=== PATIENT | female | born 1965 | race Caucasian/White ===

== ENCOUNTER 2024-02-17 11:39 | Inpatient (IN) ==
--- NOTE | 2024-02-17 12:00 | Emergency Department Note ---
Impression & Plan Pneumonia, Metastatic breast cancer, Sepsis, Change in mental status ED Provider Note Provider: Shane Ferrell MD DATE OF SERVICE: 02/17/2024 CHIEF COMPLAINT: Altered, febrile, not taking meds HISTORY OF PRESENT ILLNESS: Patient is a 58-year-old female history of stage IV metastatic breast cancer metastasis reported to the brain as well presenting here from home via ambulance. called as she is had a fever 103 yesterday and not her self and refusing to take medicines. Started to get sick more last weekend he took her to [facility] on Friday. Reports she was admitted with pneumonia and sent home on Friday. Since discharge Friday morning has not been taking her meds and really not eating or drinking very much at all. Again fever yesterday. No falls. Not really able to ambulate. Per EMS patient was being on their equipment received IM Versed prior to arrival for her and the staff/EMS safety. Upon arrival she is not able to discuss or talk with me. Eyes are open and staring into the distance. Occasionally resisting staff to some degree. Noted to be hypoxic on room air into the mid 70s and tachycardic into the 120s. Not normally on oxygen PAST MEDICAL HISTORY: As noted above MEDICATIONS: Reviewed medication list and appears to have been discharged on Augmentin. SOCIAL HISTORY: , smoker PHYSICAL EXAM: GENERAL: On stretcher resisting staff staring off into the distance, occasionally moans to questioning Head: normocephalic and atraumatic EYES: No injection, discharge or icterus. PERRL, EOMI. NECK: Trachea midline. Good range of motion although resist me some. ENT: Mucous membranes pink and moist. Pharynx without erythema or exudate. LUNGS: Airway patent. No retractions. Breath sounds clear with good air entry bilaterally. HEART: Regular rate and rhythm. No chest wall tenderness left upper chest port appreciable subcutaneously without erythema. ABDOMEN: Soft and non-tender, without guarding or rebound. SKIN: Acyanotic, warm, dry, without rashes EXTREMITIES: Without swelling, tenderness or deformity NEUROLOGICAL: Withdraws in all 4 extremities and resist with all 4 extremities. Nonverbal for me CONTINUOUS CARDIAC MONITORING: was ordered and showed a heart rate of 90s-120s bpm in normal sinus rhythm to sinus tachycardia Patient's laboratory studies and imaging reviewed. Differential includes Infection, dehydration, metabolic abnormality, hypo/hyperglycemia, electrolyte disturbance, anemia, hypoxia, cardiac sources, intracerebral event, toxicologic, neurologic, as well as other pathologies. IMPRESSION/MEDICAL DECISION MAKING: Patient nonverbal to me and not following commands. Occasionally resisting little bit intervention. at bedside reports while she is DNR/DNI she is not on hospice. Limited intake and febrile. Extensive stage IV breast cancer evidently C[employer]ACHINE metastases reported. Recent discharge from [facility] on antibiotics for presumed pneumonia. Hypoxic here and tachycardic. IV fluids ordered. Blood cultures lactate labs sent. Ordered empiric Zosyn for antibiotic coverage. Will obtain a CT of the head and CT of the chest to exclude intracranial abnormality and further elucidate pulmonary pathology. Obvious concern for an infectious component. Dehydration exist as a possibility as well. Blood here with mild anemia but not severe requiring transfusion. Leukopenia 3.1 noted the procalcitonin elevated at 14. Lactate elevated 3.3. 2 L of IV fluid ordered for more than 30 mL/kg based on her actual body weight. No signs of acute hepatitis or pancreatitis. Hypokalemia potassium 2.9 is noted. Schultz catheter placed for urine sample and respiratory viral panel completed. VBG without severe acidosis or hypercarbia. Somewhat resisting and again did receive some benzodiazepines to allow us to complete IV, blood work, and imaging. CT of the head per acute acute intracranial infarct or hemorrhage with some osteoblastic metastasis to the skull base and mastoid effusions notable. IV Tylenol ordered for fever. Fever to be improved with this. Given some IV Protonix and IV potassium and CT of the chest is notable for some esophageal debris as well as lower lobe consolidation. Family does state that they would not want CPR they do feel that intubation or mechanical ventilation would be acceptable if needed. Discussed with the hospitalist team. Will try hold off at this time unless further decline. Hospice team will further discussion with patient or at this time given her decreased mental status, family regarding CODE STATUS. DIAGNOSIS: Pneumonia, sepsis, acute respiratory failure, hyperkalemia DISPOSITION: Hospitalist will evaluate Family agreeable with this plan. Critical Care I have personally spent 37 minutes of critical care time in the direct management of this patient. This includes bedside care, interpretation of diagnostic studies, and testing, discussion with consultants, patient, and family members, and other required patient management activities. These 37 minutes is in excess of all separately billable procedures. 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 History of colonoscopy Hx of left mastectomy (05/25/20) with [facility] Lymph node identification History of reconstruction of left breast (05/25/20) History of breast biopsy (11/02/19) left breast Family History Grandfather (Maternal) , great grandmother; diagnosed @ 80 yr old Breast cancer Father Family history of diabetes mellitus Mother Family history of diabetes mellitus Brother Family history of diabetes mellitus Social History Smoking Status: Current every day smoker Tobacco Type: Cigarettes Age Started Using Tobacco: 14; Age Quit Using Tobacco: 54; packs per day: 1; Cigarettes Per Day: 20; Second Hand Exposure: Yes ( smokes); Do You Dip or Chew Tobacco: No; Hx Alcohol Use: No Hx Substance Use: No Preferred Language: Czech Communication Ability: Effective Visual Impairment: No Limitations Hearing Ability: Normal Nitriles Lab Technician Required: No Beliefs That Will Affect Care: None marital status: Current Living Situation: Spouse current occupational status: employed current occupation: [employer] unemployment from COVID to Breast Cancer How many Children do You have: 2 Feels Safe at Home: Yes Childhood Exposure to Second-Hand Smoke: Yes caffeine: Yes (tea 2 cups/day) during the past year weight has: remained stable Dental Care, Regularly: No Physical Activity Frequency: Does not Exercise Physical Activity Frequency Comment: her work required a lot of activity but is off now Seatbelt Use: always Sunscreen Use: No Assistive Devices: Contacts, Denture - Upper, Denture - Lower and Glasses Allergies Allergies Allergy/AdvReac Type Severity Reaction Status Date / Time No Known Allergies Allergy Verified 12/12/23 13:45 Home Meds Home Medications Medication Instructions Recorded Confirmed multivitamin 1 tab PO QAM 06/21/20 02/17/24 anastrozole 1 mg tablet (Arimidex) 1 mg PO QPM 12/28/20 02/17/24 gabapentin 100 mg capsule 100 mg PO TID 12/28/20 02/17/24 cholecalciferol (vitamin D3) 25 25 mcg PO QAM 11/26/22 02/17/24 mcg (1,000 unit) tablet (Vitamin D3) magnesium 250 mg tablet 500 mg PO QAM 11/26/22 02/17/24 vitamin E 400 unit tablet 45 mg PO QAM 11/26/22 02/17/24 vitamin B complex 1 tab PO DAILY 12/09/22 02/17/24 aspirin 325 mg tablet 325 mg PO DAILY 06/27/23 02/17/24 pantoprazole 40 mg tablet,delayed 40 mg PO DAILY 06/27/23 02/17/24 release oxycodone 5 mg tablet 5 mg PO UD PRN Pain 10/09/23 02/17/24 albuterol sulfate 90 mcg/actuation 1 puff inhalation DIRECTED PRN 02/17/24 02/17/24 aerosol inhaler Other amoxicillin 875 mg-potassium 1 tab PO BID 02/17/24 02/17/24 clavulanate 125 mg tablet clotrimazole 10 mg jane 10 mg PO DIRECTED PRN Other 02/17/24 02/17/24 dexamethasone 4 mg tablet 4 mg PO QAM 02/17/24 02/17/24 lidocaine-prilocaine 2.5 %-2.5 % 1 applic topical UD PRN Other 02/17/24 02/17/24 topical cream ondansetron HCl 8 mg tablet 8 mg PO DIRECTED PRN n/v 02/17/24 02/17/24 oxycodone 20 mg/mL oral concentrate 20 mg PO DIRECTED PRN Pain 02/17/24 02/17/24 Results & Data (ED) Vital Signs Vital Signs - 24 hr 02/17/24 11:51 02/17/24 12:00 02/17/24 12:00 Temperature Temperature Source Pulse Rate 126 H 121 H Pulse Rate [Apical] Pulse Rate from SpO2 Sensor 121 H Respiratory Rate 31 H Respiratory Effort / Characteristics Respiratory Depth Respiratory Pattern Blood Pressure 118/91 Blood Pressure [Left Arm] Blood Pressure Mean 100 Blood Pressure Mean [Left Arm] Pulse Oximetry 77 L 74 L Oxygen Delivery Method Non-rebreather Room Air Oxygen Flow Rate 0 Sepsis Recent Fever Within 48 Hours Sepsis New/Unexplained Change in Mental Status Sepsis Action Taken by Nursing Oxygen Flow Rate - Titration 15 Pulse Oximetry Post Tiitration 96 02/17/24 12:01 02/17/24 12:15 02/17/24 12:30 Temperature 39.3 C H Temperature Source Rectal Pulse Rate 130 H 115 H 128 H Pulse Rate [Apical] Pulse Rate from SpO2 Sensor 115 H Respiratory Rate 26 H 23 23 Respiratory Effort / Characteristics Spontaneous Respiratory Depth Respiratory Pattern Blood Pressure 105/78 94/70 L 110/84 Blood Pressure [Left Arm] Blood Pressure Mean 87 78 94 Blood Pressure Mean [Left Arm] Pulse Oximetry 77 L 96 94 Oxygen Delivery Method Room Air Non-rebreather Oxygen Flow Rate 15 15 Sepsis Recent Fever Within 48 Hours Yes Sepsis New/Unexplained Change in Mental Status Yes Sepsis Action Taken by Nursing Physician Notified Oxygen Flow Rate - Titration Pulse Oximetry Post Tiitration 02/17/24 12:45 02/17/24 13:08 02/17/24 13:15 Temperature Temperature Source Pulse Rate 108 H Pulse Rate [Apical] Pulse Rate from SpO2 Sensor Respiratory Rate 25 H Respiratory Effort / Characteristics Respiratory Depth Respiratory Pattern Blood Pressure 101/70 96/52 L 89/58 L Blood Pressure [Left Arm] Blood Pressure Mean 81 66 63 Blood Pressure Mean [Left Arm] Pulse Oximetry 92 Oxygen Delivery Method Non-rebreather Oxygen Flow Rate 15 15 Sepsis Recent Fever Within 48 Hours Sepsis New/Unexplained Change in Mental Status Sepsis Action Taken by Nursing Oxygen Flow Rate - Titration Pulse Oximetry Post Tiitration 02/17/24 13:23 02/17/24 13:27 02/17/24 13:30 Temperature Temperature Source Pulse Rate 105 H Pulse Rate [Apical] Pulse Rate from SpO2 Sensor 104 H Respiratory Rate 24 Respiratory Effort / Characteristics Non-Labored Spontaneous Respiratory Depth Normal Respiratory Pattern Regular Blood Pressure 91/62 L Blood Pressure [Left Arm] Blood Pressure Mean 67 Blood Pressure Mean [Left Arm] Pulse Oximetry 92 Oxygen Delivery Method Non-rebreather Non-rebreather Oxygen Flow Rate 15 15 Sepsis Recent Fever Within 48 Hours Sepsis New/Unexplained Change in Mental Status Sepsis Action Taken by Nursing Oxygen Flow Rate - Titration Pulse Oximetry Post Tiitration 02/17/24 13:42 02/17/24 13:48 02/17/24 13:50 Temperature 38.7 C H 38.6 C H Temperature Source Schultz Cath ( Temp Sensing) Pulse Rate 97 H 96 H Pulse Rate [Apical] 96 H Pulse Rate from SpO2 Sensor 97 H 96 H Respiratory Rate 18 21 18 Respiratory Effort / Characteristics Respiratory Depth Respiratory Pattern Blood Pressure Blood Pressure [Left Arm] 91/63 L Blood Pressure Mean Blood Pressure Mean [Left Arm] 72 Pulse Oximetry 92 93 92 Oxygen Delivery Method Non-rebreather Non-rebreather Non-rebreather Oxygen Flow Rate 15 15 Sepsis Recent Fever Within 48 Hours Sepsis New/Unexplained Change in Mental Status Sepsis Action Taken by Nursing Oxygen Flow Rate - Titration Pulse Oximetry Post Tiitration 02/17/24 14:00 02/17/24 14:00 02/17/24 14:03 Temperature 38.2 C H Temperature Source Pulse Rate 94 H Pulse Rate [Apical] Pulse Rate from SpO2 Sensor 94 H Respiratory Rate 18 Respiratory Effort / Characteristics Respiratory Depth Respiratory Pattern Blood Pressure 89/63 L 89/63 L Blood Pressure [Left Arm] Blood Pressure Mean 72 72 Blood Pressure Mean [Left Arm] Pulse Oximetry 92 Oxygen Delivery Method Non-rebreather Oxygen Flow Rate 15 Sepsis Recent Fever Within 48 Hours Sepsis New/Unexplained Change in Mental Status Sepsis Action Taken by Nursing Oxygen Flow Rate - Titration Pulse Oximetry Post Tiitration 02/17/24 14:12 Temperature 38.0 C H Temperature Source Pulse Rate 91 H Pulse Rate [Apical] Pulse Rate from SpO2 Sensor 91 H Respiratory Rate 18 Respiratory Effort / Characteristics Respiratory Depth Respiratory Pattern Blood Pressure Blood Pressure [Left Arm] Blood Pressure Mean Blood Pressure Mean [Left Arm] Pulse Oximetry 92 Oxygen Delivery Method Oxygen Flow Rate Sepsis Recent Fever Within 48 Hours Sepsis New/Unexplained Change in Mental Status Sepsis Action Taken by Nursing Oxygen Flow Rate - Titration Pulse Oximetry Post Tiitration Laboratory Data 02/17/24 12:02 02/17/24 12:02 Lab Results 02/17/24 02/17/24 02/17/24 Range/Units 12:02 12:11 12:13 WBC 3.16 L (4.8-10.8) K/ul RBC 2.96 L (4.20-5.40) M/uL Hgb 9.7 L (12.0-16.0) g/dl POC Hgb 9.5 L (12.0-16.0) g/dl Hct 29.2 L (37.0-47.0) % POC Hct 28 L (37-47) % MCV 98.6 (80.0-100.0) fL MCH 32.8 (25.0-34.0) pg MCHC 33.2 (32.0-36.0) g/dL RDW Std Deviation 82.4 H (36.4-46.3) fL RDW Coeff of Carlos 23.5 H (11.5-14.5) % Plt Count 32 L (130-400) K/uL MPV 9.7 (9.4-12.4) fL Immature Gran % (Auto) 7.9 % Neut % (Auto) 80.7 % Lymph % (Auto) 5.1 % Ford % (Auto) 6.0 % Eos % (Auto) 0.0 % Baso % (Auto) 0.3 % Neut # (Auto) 2.55 (1.40-6.50) K/uL Lymph # (Auto) 0.16 L (1.20-3.40) K/uL Ford # (Auto) 0.19 (0.11-0.59) K/uL Eos # (Auto) 0.00 (0.00-0.50) K/uL Baso # (Auto) 0.01 (0.00-0.20) K/uL Immature Gran # (Auto) 0.25 H (0.01-0.20) K/uL Absolute Nucleated RBC 0.03 (0.00-0.12) K/uL Nucleated RBC % (auto) 0.9 % Toxic Granulation Occasional Toxic Vacuolation Occasional Dohle Bodies 1+ Polychromasia 1+ Anisocytosis Present PT 10.9 (9.0-12.0) Seconds INR 1.0 (0.9-1.1) VBG pH (7.36-7.41) VBG pCO2 (38-50) mmHg VBG pO2 mmHg VBG HCO3 mmol/L VBG O2 Saturation % VBG Base Excess mEq/L POC Sodium 138 (135-144) mmol/L Sodium 137 (136-145) mmol/L POC Potassium 2.8 L (3.3-5.0) mmol/L Potassium 2.9 L (3.5-5.1) mmol/L POC Chloride 104 (101-112) mmol/L Chloride 102 (98-107) mmol/L Carbon Dioxide 23 (21-32) mmol/L POC Total CO2 20 L (24-31) mmol/L Anion Gap 12 H (3-11) POC Anion Gap 18.0 (16-25) mmol/L POC BUN 22 H (7-18) mg/dl BUN 27 H (6-23) mg/dl Creatinine 0.94 (0.6-1.2) mg/dl POC Creatinine 0.8 (0.6-1.3) mg/dl Est Cr Clr Drug Dosing 59.2 ml/min Est GFR ( Amer) 76.4 ml/min Est GFR (Non-Af Amer) 65.9 ml/min BUN/Creatinine Ratio 28.7 H (10-20) Glucose 139 H (70-99(Fasting)) mg/dl POC Glucose 156 H (70-99) mg/dl POC Glucose (other) 143 H (70-99) mg/dl Lactate 3.3 H* (0.4-2.0) mmol/L Calcium 8.1 L (8.6-10.3) mg/dl POC Ioniz Calcium Bruce 0.96 L (1.12-1.32) mmol/l Total Bilirubin 2.2 H (0.2-1.0) mg/dl AST 29 (13-39) U/L ALT 52 (7-52) U/L Alkaline Phosphatase 120 H (34-104) U/L Troponin I High Sens 22.6 H (0-14) pg/ml Total Protein 7.4 (6.0-8.3) gm/dl Albumin 3.7 (3.4-5.0) gm/dl Globulin 3.7 (2.5-4.0) gm/dl Albumin/Globulin Ratio 1.0 (0.9-2) Lipase 3 L (11-82) U/L Procalcitonin 14.20 H (0-0.5) ng/ml Urine Color Urine Appearance (Clear) Urine pH (4.5-7.5) Ur Specific [place] (1.000-1.030) Urine Protein (Negative) Urine Glucose (UA) (Negative) Urine Ketones (Negative) Urine Blood (Negative) Urine Nitrite (Negative) Urine Bilirubin (Negative) Urine Urobilinogen (Negative) Ur Leukocyte Esterase (Negative) Urine WBC (Auto) (0-5) /hpf Urine RBC (Auto) (0-2) /hpf U Hyaline Cast (Auto) (0-2) /lpf U Epithel Cells (Auto) (0-2) /hpf Urine Bacteria (Auto) (None Seen) 02/17/24 02/17/24 Range/Units 13:07 13:30 WBC (4.8-10.8) K/ul RBC (4.20-5.40) M/uL Hgb (12.0-16.0) g/dl POC Hgb (12.0-16.0) g/dl Hct (37.0-47.0) % POC Hct (37-47) % MCV (80.0-100.0) fL MCH (25.0-34.0) pg MCHC (32.0-36.0) g/dL RDW Std Deviation (36.4-46.3) fL RDW Coeff of Carlos (11.5-14.5) % Plt Count (130-400) K/uL MPV (9.4-12.4) fL Immature Gran % (Auto) % Neut % (Auto) % Lymph % (Auto) % Ford % (Auto) % Eos % (Auto) % Baso % (Auto) % Neut # (Auto) (1.40-6.50) K/uL Lymph # (Auto) (1.20-3.40) K/uL Ford # (Auto) (0.11-0.59) K/uL Eos # (Auto) (0.00-0.50) K/uL Baso # (Auto) (0.00-0.20) K/uL Immature Gran # (Auto) (0.01-0.20) K/uL Absolute Nucleated RBC (0.00-0.12) K/uL Nucleated RBC % (auto) % Toxic Granulation Toxic Vacuolation Dohle Bodies Polychromasia Anisocytosis PT (9.0-12.0) Seconds INR (0.9-1.1) VBG pH 7.42 H (7.36-7.41) VBG pCO2 34 L (38-50) mmHg VBG pO2 41 mmHg VBG HCO3 22 mmol/L VBG O2 Saturation 69.5 % VBG Base Excess -1.7 mEq/L POC Sodium (135-144) mmol/L Sodium (136-145) mmol/L POC Potassium (3.3-5.0) mmol/L Potassium (3.5-5.1) mmol/L POC Chloride (101-112) mmol/L Chloride (98-107) mmol/L Carbon Dioxide (21-32) mmol/L POC Total CO2 (24-31) mmol/L Anion Gap (3-11) POC Anion Gap (16-25) mmol/L POC BUN (7-18) mg/dl BUN (6-23) mg/dl Creatinine (0.6-1.2) mg/dl POC Creatinine (0.6-1.3) mg/dl Est Cr Clr Drug Dosing ml/min Est GFR ( Amer) ml/min Est GFR (Non-Af Amer) ml/min BUN/Creatinine Ratio (10-20) Glucose (70-99(Fasting)) mg/dl POC Glucose (70-99) mg/dl POC Glucose (other) (70-99) mg/dl Lactate (0.4-2.0) mmol/L Calcium (8.6-10.3) mg/dl POC Ioniz Calcium Bruce (1.12-1.32) mmol/l Total Bilirubin (0.2-1.0) mg/dl AST (13-39) U/L ALT (7-52) U/L Alkaline Phosphatase (34-104) U/L Troponin I High Sens (0-14) pg/ml Total Protein (6.0-8.3) gm/dl Albumin (3.4-5.0) gm/dl Globulin (2.5-4.0) gm/dl Albumin/Globulin Ratio (0.9-2) Lipase (11-82) U/L Procalcitonin (0-0.5) ng/ml Urine Color Yellow Urine Appearance Clear (Clear) Urine pH 6.5 (4.5-7.5) Ur Specific [place] > 1.045 H (1.000-1.030) Urine Protein 2+ H (Negative) Urine Glucose (UA) Negative (Negative) Urine Ketones Negative (Negative) Urine Blood Negative (Negative) Urine Nitrite Negative (Negative) Urine Bilirubin Negative (Negative) Urine Urobilinogen Negative (Negative) Ur Leukocyte Esterase Negative (Negative) Urine WBC (Auto) 0-5 (0-5) /hpf Urine RBC (Auto) 0-2 (0-2) /hpf U Hyaline Cast (Auto) 0-2 (0-2) /lpf U Epithel Cells (Auto) 0-2 (0-2) /hpf Urine Bacteria (Auto) None Seen (None Seen) Administered Medications Potassium Chloride/Dextrose/Sod Cl (D5nss + 20meq Kcl) 20 meq in 1,000 mls @ 100 mls/hr IV .Q10H IDA; Protocol Stop: 02/18/24 20:59 Last Admin: 02/17/24 15:35 Dose: 100 mls/hr Documented By: WOLFGANG Ondansetron HCl (Ondansetron Inj 2 Mg/Ml 2 Ml Vial) 4 mg IV Q6H IDA Stop: 03/18/24 14:29 Last Admin: 02/17/24 16:45 Dose: 4 mg Documented By: WOLFGANG Discontinued Medications Sodium Chloride (Nss) 1,000 mls @ 999 mls/hr IV .Q1H1M STA Stop: 02/17/24 12:53 Last Infusion: 02/17/24 13:53 Dose: Infused Documented By: Admin: 02/17/24 12:48 Dose: 999 mls/hr Documented By: ELENI Piperacillin Sod/Tazobactam Sod (Zosyn) 4.5 gm in 100 mls @ 200 mls/hr IV NOW ONE Stop: 02/17/24 12:24 Last Infusion: 02/17/24 13:53 Dose: Infused Documented By: Admin: 02/17/24 13:18 Dose: 200 mls/hr Documented By: PRITESH Vancomycin HCl 1,250 mg/ (Sodium Chloride) 525 mls @ 200 mls/hr IV NOW ONE Stop: 02/17/24 15:20 Last Infusion: 02/17/24 16:24 Dose: Infused Documented By: Admin: 02/17/24 13:45 Dose: 200 mls/hr Documented By: PRITESH Acetaminophen (Ofirmev) 1,000 mg in 100 mls @ 400 mls/hr IV NOW STA Stop: 02/17/24 12:57 Last Infusion: 02/17/24 13:11 Dose: Infused Documented By: Admin: 02/17/24 12:48 Dose: 400 mls/hr Documented By: ELENI Sodium Chloride (Nss) 1,000 mls @ 999 mls/hr IV .Q1H1M ONE Stop: 02/17/24 13:44 Last Infusion: 02/17/24 15:37 Dose: Infused Documented By: Admin: 02/17/24 13:19 Dose: 999 mls/hr Documented By: PRITESH Pantoprazole Sodium 40 mg/ (Syringe) 10 mls @ 5 mls/min IV NOW ONE Stop: 02/17/24 14:19 Last Admin: 02/17/24 16:42 Dose: 5 mls/min Documented By: WOLFGANG Potassium Chloride (K David / Wtr) 10 meq in 100 mls @ 100 mls/hr IV ONE ONE Stop: 02/17/24 15:17 Last Infusion: 02/17/24 17:44 Dose: Infused Documented By: Admin: 02/17/24 16:42 Dose: 100 mls/hr Documented By: WOLFGANG Ioversol (Optiray 320 125ml) 112 ml IV ONCE ONE Stop: 02/17/24 13:01 Last Admin: 02/17/24 13:00 Dose: 112 ml Documented By: KIANNA Lorazepam (Lorazepam 1 Mg/1 Ml Syr Ed Inj Use) 1 mg IV ONE STA Stop: 02/17/24 12:40 Last Admin: 02/17/24 12:44 Dose: 1 mg Documented By: ELENI Imaging Data Radiologist's Impression: Chest X-Ray 02/17/24 11:53 XR chest 1V portable HISTORY: Fever, hypoxia COMPARISON: None. FINDINGS: No pneumothorax. No pleural effusions. The cardiac silhouette is mildly enlarged. Right Port-A-Cath terminates in the right atrium. Surgical clips within the left breast. Bilateral lower lung zone airspace opacities most pronounced on the right. This favors a pneumonia. There is diffuse interstitial thickening which may represent mild congestive change. IMPRESSION: 1. Bilateral lower lung zone airspace opacities which favors a pneumonia. 2. Diffuse interstitial thickening. This could be due to the pneumonia or superimposed congestive change. ACT 112: Negative or not required by law. Electronically signed by: Luigi Alonzo M.D. 02/17/2024 12:40 PM Chest CTA 02/17/24 12:12 CT angio chest PE protocol CT DOSE: 976.67 mGy.cm HISTORY: 58 years-old Female with PE, fever, breast CA, hypoxia, ams. Acute fever with hypoxia and history of breast cancer TECHNIQUE: Multiple CTA images of the chest were obtained after the intravenous administration of 112 ml Optiray. Coronal and sagittal MIPS were obtained from the axial data set and were submitted for review. All measurements were obtained according to NASCET criteria. A dose lowering technique was utilized adhering to the principles of ALARA. COMPARISON: Chest CT from outside hospital 09/16/2023 FINDINGS: CTA: Mild cardiomegaly with trace pericardial effusion. Unremarkable thoracic aorta. No pulmonary emboli identified. CT CHEST: No thyroid nodule identified. Mediastinal and hilar lymphadenopathy redemonstrated which has mildly improved compared to 09/16/2023. Trace right and small left pleural effusions. Emphysema with bronchitis. No pneumothorax. Intralobular septal thickening. Dense consolidation is most pronounced in the right lower lobe and to lesser extent within the left lower lobe dependently. Circumferential wall thickening throughout the mid to distal esophagus which is debris-filled. Posterior right hepatic lobe lesion measuring 1.7 cm, previously 2.2 cm. Left-sided mastectomy. 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 IMPRESSION: 1. No pulmonary emboli identified. 2. Progressive skeletal metastasis. 3. Consolidation most pronounced in the right lower lobe suggestive of pneumonia versus aspiration. 4. The esophagus is debris filled and demonstrates circumferential mid to distal wall thickening. 5. Mildly decreased size of the right hepatic lobe lesion. 6. Trace right and small left pleural effusions. 7. Mediastinal and hilar lymphadenopathy redemonstrated. ACT 112: Negative or not required by law. The above report was generated using voice recognition software. It may contain grammatical, syntax or spelling errors. Electronically signed by: Gustavo Ferguson M.D. 02/17/2024 2:[address] 02/17/24 12:[address] DOSE: HISTORY: Altered mental status, hx breast mets TECHNIQUE: Multiaxial CT images of the head were performed without the use of intravenous contrast. Automated exposure control was utilized for this study. A dose lowering technique was utilized adhering to the principles of ALARA. Comparison: Outside hospital brain MRI 09/30/2023. Findings: The paranasal sinuses are clear. Moderate right and large left mastoid effusions. A 9 mm sclerotic focus within the left skull base on image 7. This favors an osteoblastic metastasis. The calvarium and skull base are intact. The ventricles and sulci are within normal limits. There is no mass, hematoma, midline shift, or acute infarct. There is a punctate calcification within the right cerebellar hemisphere. Impression: 1. No acute infarct or intracranial hemorrhage. 2. 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 3. Moderate right and large left mastoid effusions. ACT 112: Negative or not required by law. Electronically signed by: Luigi Alonzo M.D. 02/17/2024 1:17 PM Discharge Plan Visit Data Chief Complaint: Altered Mental Status Stated Complaint: AMS, Fever, Combative ED Provider: Shane Ferrell Discharge Problem: Pneumonia, Metastatic breast cancer, Sepsis, Change in mental status Patient Disposition: Admitted As Inpatient Discharge Instructions Interventions: ED Discharge Assessment Last Done: 02/17/24 15:19 Discharge Problem: Pneumonia Qualifiers: Pneumonia type: due to unspecified organism Laterality: bilateral Lung location: lower lobe of lung Qualified Code(s): J18.9 - Pneumonia, unspecified organism Sepsis Qualifiers: Sepsis type: sepsis due to unspecified organism Sepsis acute organ dysfunction status: with acute organ dysfunction Acute respiratory failure type: with hypoxia Severe sepsis shock status: unspecified Change in mental status Qualifiers: Altered mental status type: disorientation Qualified Code(s): R41.0 - Disorientation, unspecified
[2024-02-17 12:26] LABS: Hematocrit (blood only) 29.2 % (37.0-47.0); Hemoglobin 9.7 g/dl (12.0-16.0); Mean Corpuscular Hemoglobin 32.8 pg (25.0-34.0); Mean Corpuscular Hgb Conc 33.2 g/dL (32.0-36.0); Mean Corpuscular Volume 98.6 fL (80.0-100.0); Mean Platelet Volume 9.7 fL (9.4-12.4); Nucleated RBC # (auto) 0.03 K/uL (0.00-0.12); Nucleated RBC % (auto) 0.9 %; Platelet Count 32 K/uL (130-400); RDW Coefficient of Variation 23.5 % (11.5-14.5); RDW Standard Deviation 82.4 fL (36.4-46.3); Red Blood Count 2.96 M/uL (4.20-5.40); White Blood Count 3.16 K/ul (4.8-10.8)
[2024-02-17 12:26] LABS: iSTAT Creatinine 0.8 mg/dl (0.6-1.3); iSTAT Hemoglobin 9.5 g/dl (12.0-16.0); iSTAT Ionized Calcium 0.96 mmol/l (1.12-1.32); iSTAT Potassium 2.8 mmol/L (3.3-5.0)
[2024-02-17 12:41] LABS: Albumin Level 3.7 gm/dl (3.4-5.0); BUN Creatinine Ratio 28.7 (10-20); Bilirubin,Total 2.2 mg/dl (0.2-1.0); Calcium 8.1 mg/dl (8.6-10.3); Creatinine Clr Calc Pharmacy 59.2 ml/min; Est GFR (African American) 76.4 ml/min; Est GFR (Non-African American) 65.9 ml/min; Globulin 3.7 gm/dl (2.5-4.0); Potassium 2.9 mmol/L (3.5-5.1); Total Protein 7.4 gm/dl (6.0-8.3)
--- NOTE | 2024-02-17 12:41 | XRay Report ---
XR chest 1V portable HISTORY: Fever, hypoxia COMPARISON: None. FINDINGS: No pneumothorax. No pleural effusions. The cardiac silhouette is mildly enlarged. Right Por t-A-Cath terminates in the right atrium. Surgical clips within the left breast. Bilateral lower lung zone airspace opacities most pronounced on the right. This favors a pneumonia. There is diffuse inter stitial thickening which may represent mild congestive change. IMPRESSION: 1. Bilateral lower lung zone airspace opacities which favors a pneumonia. 2. Diffuse interstitial thickening. This could be due to the pneumonia or superimposed congestive klever nge. ACT 112: Negative or not required by law. Electronically signed by: Luigi Alonzo M.D. 02/17/2024 12:40 PM
[2024-02-17] MEDS ORDERED: VANCOMYCIN CONSULT ACTIVE PRN (12:43)
[2024-02-17] MEDS: LORazepam 1 MG/1 ML SYR ED Inj Use IV STA (12:44)
[2024-02-17 12:47] LABS: Troponin I High Sensitivity 22.6 pg/ml (0-14)
[2024-02-17 12:48] LABS: Toxic Granulation Occasional; Toxic Vacuolation Occasional
[2024-02-17] MEDS: SODIUM CHLORIDE 0.9% 1,000 ML IV STA (12:48)
[2024-02-17] MEDS: ACETAMINOPHEN 1,000 MG/100 ML VIAL IV STA (12:48)
[2024-02-17 12:49] LABS: Anisocytosis Present; Basophils # (auto) 0.01 K/uL (0.00-0.20); Basophils % (auto) 0.3 %; Dohle Bodies 1+; Immature Granulocytes # (auto) 0.25 K/uL (0.01-0.20); Immature Granulocytes % (auto) 7.9 %; Lymphocytes # (auto) 0.16 K/uL (1.20-3.40); Lymphocytes % (auto) 5.1 %; Monocytes # (auto) 0.19 K/uL (0.11-0.59); Neutrophils # (auto) 2.55 K/uL (1.40-6.50); Neutrophils % (auto) 80.7 %; Polychromasia 1+
[2024-02-17 12:52] LABS: Prothrombin Time 10.9 Seconds (9.0-12.0)
[2024-02-17] MEDS: OPTIRAY 320 125ml IV ONE (13:00)
[2024-02-17] MEDS: PIPERACILLIN/TAZOBACTAM 4.5 GM/100 ML BAG IV ONE (13:18)
[2024-02-17] MEDS: SODIUM CHLORIDE 0.9% 1,000 ML IV ONE (13:19)
[2024-02-17 13:20] LABS: Base Excess VBG -1.7 mEq/L; HCO3 VBG 22 mmol/L; Oxygen Saturation VBG 69.5 %; PCO2 VBG 34 mmHg (38-50); PO2 VBG 41 mmHg; pH VBG 7.42 (7.36-7.41)
--- NOTE | 2024-02-17 13:20 | CT Scan Report ---
HEAD CT NONCONTRAST CT DOSE: HISTORY: Altered mental status, hx breast mets TECHNIQUE: Multiaxial CT images of the head were performed without the use of intravenous contrast. A utomated exposure control was utilized for this study. A dose lowering technique was utilized adheri ng to the principles of ALARA. Comparison: Outside hospital brain MRI 09/30/2023. Findings: The paranasal sinuses are clear. Moderate right and large left mastoid effusions. A 9 mm sc lerotic focus within the left skull base on image 7. This favors an osteoblastic metastasis. The calv arium and skull base are intact. The ventricles and sulci are within normal limits. There is no mass, hematoma, midline shift, or acute infarct. There is a punctate calcification within the right cerebe llar hemisphere. Impression: 1. No acute infarct or intracranial hemorrhage. 2. 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 3. Moderate right and large left mastoid effusions. ACT 112: Negative or not required by law. Electronically signed by: Luigi Alonzo M.D. 02/17/2024 1:17 PM
[2024-02-17] MEDS: VANCOMYCIN HCL 1,250 MG in SODIUM CHLORIDE 0.9% 500 ML IV ONE (13:45)
[2024-02-17 13:48] LABS: Appearance Urine Clear (Clear); Bacteria Urine Automated None Seen (None Seen); Bilirubin Urine Negative (Negative); Blood Urine Negative (Negative); Cast Urine Automated 0-2 /lpf (0-2); Color Urine Yellow; Epithelial Cell Urine Auto 0-2 /hpf (0-2); Glucose Urine UA Negative (Negative); Ketones Urine Negative (Negative); Leukocyte Esterase Urine Negative (Negative); Nitrite Urine Negative (Negative); Protein Urine 2+ (Negative); RBC Urine Automated 0-2 /hpf (0-2); Specific Gravity Urine > 1.045 (1.000-1.030); Urobilinogen Urine Negative (Negative); WBC Urine Automated 0-5 /hpf (0-5); pH Urine 6.5 (4.5-7.5)
--- NOTE | 2024-02-17 14:16 | CT Scan Report ---
CT angio chest PE protocol CT DOSE: 976.67 mGy.cm HISTORY: 58 years-old Female with PE, fever, breast CA, hypoxia, ams. Acute fever with hypoxia and history of breast cancer TECHNIQUE: Multiple CTA images of the chest were obtained after the intravenous administration of 112 ml Optiray. Coronal and sagittal MIPS were obtained from the axial data set and were submitted for review. All measurements were obtained according to NASCET criteria. A dose lowering technique was u tilized adhering to the principles of ALARA. COMPARISON: Chest CT from outside hospital 09/16/2023 FINDINGS: CTA: Mild cardiomegaly with trace pericardial effusion. Unremarkable thoracic aorta. No pulmonary emboli i dentified. CT CHEST: No thyroid nodule identified. Mediastinal and hilar lymphadenopathy redemonstrated which has mildly i mproved compared to 09/16/2023. Trace right and small left pleural effusions. Emphysema with bronchitis. No pneumothorax. Intralobula r septal thickening. Dense consolidation is most pronounced in the right lower lobe and to lesser ext ent within the left lower lobe dependently. Circumferential wall thickening throughout the mid to dis héctor esophagus which is debris-filled. Posterior right hepatic lobe lesion measuring 1.7 cm, previousl y 2.2 cm. Left-sided mastectomy. 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 IMPRESSION: 1. No pulmonary emboli identified. 2. Progressive skeletal metastasis. 3. Consolidation most pronounced in the right lower lobe suggestive of pneumonia versus aspiration. 4. The esophagus is debris filled and demonstrates circumferential mid to distal wall thickening. 5. Mildly decreased size of the right hepatic lobe lesion. 6. Trace right and small left pleural effusions. 7. Mediastinal and hilar lymphadenopathy redemonstrated. ACT 112: Negative or not required by law. The above report was generated using voice recognition software. It may contain grammatical, syntax o r spelling errors. Electronically signed by: Gustavo Ferguson M.D. 02/17/2024 2:14 PM
[2024-02-17 14:21] LABS: Adenovirus PCR Not Detected (NotDetected); Bordetella parapertussis PCR Not Detected (NotDetected); Bordetella pertussis PCR Not Detected (NotDetected); Chlamydia pneumoniae PCR Not Detected (NotDetected); Coronavirus 229E PCR Not Detected (NotDetected); Coronavirus CoV-2 (COVID19)PCR Not Detected (NotDetected); Coronavirus HKU1 PCR Not Detected (NotDetected); Coronavirus NL63 PCR Not Detected (NotDetected); Coronavirus OC43PCR Not Detected (NotDetected); Human Metapneumovirus PCR Not Detected (NotDetected); Influenza A PCR Not Detected (NotDetected); Influenza B PCR Not Detected (NotDetected); Mycoplasma pneumoniae PCR Not Detected (NotDetected); Parainfluenza Virus 1 PCR Not Detected (NotDetected); Parainfluenza Virus 2 PCR Not Detected (NotDetected); Parainfluenza Virus 3 PCR Not Detected (NotDetected); Parainfluenza Virus 4 PCR Not Detected (NotDetected); Respiratory Syncytial VirusPCR Not Detected (NotDetected); Rhinovirus/Enterovirus PCR Not Detected (NotDetected)
[2024-02-17] MEDS ORDERED: LORazepam 0.25 MG in SYRINGE 0.125 ML IV PRN (14:23)
--- NOTE | 2024-02-17 14:42 | History & Physical Report ---
Date of Service February 17, 2024 Assessment & Plan (1) Sepsis: Plan: Was brought in unresponsive, not being talking and taking any medications since Friday Was discharged from [facility] last Friday on oral Augmentin but the patient has not been taking it She was unresponsive when arrived in the emergency room and requiring 100% nonrebreather Noted to be hypotensive with systolic blood pressure of 89 and febrile 38.2 C and the lactate is slightly elevated and elevated procalcitonin. Has bibasilar pneumonia pneumonia without any evidence of pulmonary embolism on CTA Blood cultures were taken and she was started with intravenous vancomycin and Zosyn She will be admitted to telemetry unit for continuation of care (2) Pneumonia: Plan: History of metastatic breast cancer to bone, liver and brain Now has bibasilar pneumonia more on the right base than the left Antibiotic as above Will get nebulized bronchodilator as needed She is requiring 100% nonrebreather to maintain saturation (3) Metastatic breast cancer: Plan: Metastasis to liver, bone and brain Has been on chemo received chemo on 04 February and next chemo is this The oncologist is aware in which will be definitely on hold Overall prognosis is extremely poor Palliative care will be consulted Pancytopenia Secondary to chemotherapy (4) Anxiety with agitation: Plan: Gets very agitated and aggressive while awake Contributed by pain She will be given adequate pain medications and also intravenous Ativan while in the hospital (5) Hypotension: Plan: She is hypotensive to begin with secondary to multiple drugs as mentioned in the history Her blood pressure running around 89 systolic She will get intravenous fluid and will be kept n.p.o. for now (6) Electrolyte imbalance: Plan: Will be supplemented and monitored (7) Cancer related pain: Plan: Started on a small dose of morphine given the unresponsive episode (8) Change in mental status: Plan DVT prophylaxis SCDs due to low platelet CODE STATUS DNR/DNI-this was discussed in detail with the family members the and the daughter History of Present Illness Chief Complaint: Decreased level of consciousness and not being eating and drinking and not taking medications since Friday last Primary Care Provider: Dean Mooney MD She is a 58-year-old female with significant past medical history of metastatic breast cancer with ongoing chemotherapy, COPD with ongoing smoking, cancer related pain, anxiety with agitation, and hypotension due to drugs apparently was in [facility] recently with bilateral leg pain and noted to have pneumonia. She was sent home on Friday on oral Augmentin and oral pain medications. Apparently she has been having more pain and refused to take her medications since Friday. She has not been eating or drinking and became semiresponsive and not talking to the family members since around Friday. She was noted to have fever with chills at times. She was brought in today with unresponsiveness and also noted to have hypotension in the emergency room and has been requiring 100% nonrebreather to maintain saturation. She had a high temperature of 38.2 and chest x-ray did show bibasilar pneumonia more on the right than the left. The case was discussed with the family members the and the daughter and according to her wish she will be DNR/DNI and she will have a palliative care consultation as early as tomorrow. She will be admitted to telemetry unit with intravenous antibiotic, fluids, pain medications and symptomatic other medications. Allergies Allergy/AdvReac Type Severity Reaction Status Date / Time No Known Allergies Allergy Verified 12/12/23 13:45 Home Medications Medication Instructions Recorded Confirmed Type multivitamin 1 tab PO QAM 06/21/20 02/17/24 History anastrozole 1 mg tablet (Arimidex) 1 mg PO QPM 12/28/20 02/17/24 History gabapentin 100 mg capsule 100 mg PO TID 12/28/20 02/17/24 History cholecalciferol (vitamin D3) 25 25 mcg PO QAM 11/26/22 02/17/24 History mcg (1,000 unit) tablet (Vitamin D3) magnesium 250 mg tablet 500 mg PO QAM 11/26/22 02/17/24 History vitamin E 400 unit tablet 45 mg PO QAM 11/26/22 02/17/24 History vitamin B complex 1 tab PO DAILY 12/09/22 02/17/24 History aspirin 325 mg tablet 325 mg PO DAILY 06/27/23 02/17/24 History pantoprazole 40 mg tablet,delayed 40 mg PO DAILY 06/27/23 02/17/24 History release oxycodone 5 mg tablet 5 mg PO UD PRN Pain 10/09/23 02/17/24 History albuterol sulfate 90 mcg/actuation 1 puff inhalation DIRECTED PRN 02/17/24 02/17/24 History aerosol inhaler Other amoxicillin 875 mg-potassium 1 tab PO BID 02/17/24 02/17/24 History clavulanate 125 mg tablet clotrimazole 10 mg jane 10 mg PO DIRECTED PRN Other 02/17/24 02/17/24 History dexamethasone 4 mg tablet 4 mg PO QAM 02/17/24 02/17/24 History lidocaine-prilocaine 2.5 %-2.5 % 1 applic topical UD PRN Other 02/17/24 02/17/24 History topical cream ondansetron HCl 8 mg tablet 8 mg PO DIRECTED PRN n/v 02/17/24 02/17/24 History oxycodone 20 mg/mL oral concentrate 20 mg PO DIRECTED PRN Pain 02/17/24 02/17/24 History Past Med/Surg History Problem List (Updated 02/17/24 @ 19:02 by Shane Ferrell M.D.) Change in mental status (Acute) Cancer related pain Electrolyte imbalance Hypotension Anxiety with agitation Pneumonia (Acute) Sepsis (Acute) Metastatic breast cancer (Chronic) 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) Encounter for pre-operative examination Malignant neoplasm of upper-outer quadrant of left breast in female, estrogen receptor positive (Chronic 11/02/19) Medical History Limb alert care status left arm Gallstones Brain aneurysm 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 History of colonoscopy Hx of left mastectomy (05/25/20) with [place] Lymph node identification History of reconstruction of left breast (05/25/20) History of breast biopsy (11/02/19) left breast Family History Grandfather (Maternal) , great grandmother; diagnosed @ 80 yr old Breast cancer Father Family history of diabetes mellitus Mother Family history of diabetes mellitus Brother Family history of diabetes mellitus Social History Smoking Status: Current every day smoker Tobacco Type: Cigarettes Age Started Using Tobacco: 14; Age Quit Using Tobacco: 54; packs per day: 1; Cigarettes Per Day: 20; Second Hand Exposure: Yes ( smokes); Do You Dip or Chew Tobacco: No; Hx Alcohol Use: No Hx Substance Use: No Preferred Language: Kazakh Communication Ability: Effective Visual Impairment: No Limitations Hearing Ability: Normal 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 Beliefs That Will Affect Care: None marital status: Current Living Situation: Spouse current occupational status: employed current occupation: [employer] unemployment from COVID to Breast Cancer How many Children do You have: 2 Feels Safe at Home: Yes Childhood Exposure to Second-Hand Smoke: Yes caffeine: Yes (tea 2 cups/day) during the past year weight has: remained stable Dental Care, Regularly: No Physical Activity Frequency: Does not Exercise Physical Activity Frequency Comment: her work required a lot of activity but is off now Seatbelt Use: always Sunscreen Use: No Assistive Devices: Contacts, Denture - Upper, Denture - Lower and Glasses Review of Systems Review of Systems: Unobtainable due to cognitive status Physical Exam Physical Exam: Remains unresponsive on nonrebreather Constitutional: + ill appearing and + thin Respiratory: + respiratory distress Auscultation: + diminished lung sounds and + crackles (Coarse crackles bilaterally) Cardiovascular: Rate/Rhythm: regular rate and regular rhythm; not tachycardic Heart Sounds: normal S1 and normal S2; no murmur Extremities: + edema (Trace edema bilaterally more on the left than the right) Gastrointestinal (Abdomen): Inspection/Auscultation: normal bowel sounds; abdomen not distended Percussion/Palpation: abdomen soft Musculoskeletal: No acute arthritis involving any joint Neurologic: Remains unresponsive. On nonrebreather Lymphatic: no cervical or axillary lymphadenopathy Results & Data Results & Data Vital Signs (Past 12 Hours) Vital Signs Temp Pulse Pulse Resp BP BP Pulse Ox 02/17/24 14:03 38.2 C H 94 H 18 92 02/17/24 14:00 89/63 L 02/17/24 14:00 89/63 L 02/17/24 13:50 38.6 C H 96 H 18 91/63 L 92 02/17/24 13:48 38.7 C H 96 H 21 93 02/17/24 13:42 97 H 18 92 02/17/24 13:30 105 H 24 92 02/17/24 13:27 91/62 L 02/17/24 13:15 89/58 L 02/17/24 13:08 108 H 25 H 96/52 L 92 02/17/24 12:45 101/70 02/17/24 12:30 128 H 23 110/84 94 02/17/24 12:15 115 H 23 94/70 L 96 02/17/24 12:01 39.3 C H 130 H 26 H 105/78 77 L 02/17/24 12:00 121 H 31 H 118/91 74 L 02/17/24 12:00 77 L 02/17/24 11:51 126 H O2 Del Method O2 Flow Rate 02/17/24 14:03 Non-rebreather 15 02/17/24 14:00 02/17/24 14:00 02/17/24 13:50 Non-rebreather 02/17/24 13:48 Non-rebreather 15 02/17/24 13:42 Non-rebreather 15 02/17/24 13:30 Non-rebreather 15 02/17/24 13:27 02/17/24 13:15 Non-rebreather 15 02/17/24 13:08 15 02/17/24 12:45 02/17/24 12:30 15 02/17/24 12:15 Non-rebreather 15 02/17/24 12:01 Room Air 02/17/24 12:00 Room Air 02/17/24 12:00 Non-rebreather 0 02/17/24 11:51 Laboratory Results Short CBC 02/17/24 Range/Units 12:02 WBC 3.16 L (4.8-10.8) K/ul Hgb 9.7 L (12.0-16.0) g/dl Hct 29.2 L (37.0-47.0) % Plt Count 32 L (130-400) K/uL BMP 02/17/24 12:02 Sodium 137 Potassium 2.9 L Chloride 102 Carbon Dioxide 23 BUN 27 H Creatinine 0.94 Glucose 139 H Calcium 8.1 L Liver Function 02/17/24 Range/Units 12:02 Total Bilirubin 2.2 H (0.2-1.0) mg/dl AST 29 (13-39) U/L ALT 52 (7-52) U/L Alkaline Phosphatase 120 H (34-104) U/L Albumin 3.7 (3.4-5.0) gm/dl Urine 02/17/24 Range/Units 13:30 Urine Color Yellow Urine Appearance Clear (Clear) Urine pH 6.5 (4.5-7.5) Ur Specific [place] > 1.045 H (1.000-1.030) Urine Protein 2+ H (Negative) Urine Glucose (UA) Negative (Negative) Medications Administered Current Inpatient Medications Vancomycin HCl 1,250 mg/ (Sodium Chloride) 525 mls @ 200 mls/hr IV NOW ONE Stop: 02/17/24 15:20 Last Admin: 02/17/24 13:45 Dose: 200 mls/hr Potassium Chloride (K David / Wtr) 10 meq in 100 mls @ 100 mls/hr IV ONE ONE Stop: 02/17/24 15:17 Potassium Chloride/Dextrose/Sod Cl (D5nss + 20meq Kcl) 20 meq in 1,000 mls @ 100 mls/hr IV .Q10H IDA; Protocol Stop: 02/18/24 20:29 Acetaminophen (Ofirmev) 1,000 mg in 100 mls @ 400 mls/hr IV Q8H PRN PRN Reason: Fever Stop: 02/20/24 14:22 Lorazepam 0.25 mg/ Syringe 0.25 mls @ 2 mls/min IV Q4H PRN PRN Reason: Agitation Stop: 03/18/24 14:22 Miscellaneous Information (Vancomycin Consult Active) 1 each N/A UD PRN PRN Reason: Consult Stop: 03/18/24 12:42 Morphine Sulfate (Morphine Sulfate 2 Mg/Ml Carp) 2 mg IV Q2H PRN PRN Reason: Pain Stop: 03/02/24 14:22 Ondansetron HCl (Ondansetron Inj 2 Mg/Ml 2 Ml Vial) 4 mg IV Q6H IDA Stop: 03/18/24 14:29 Code Status & VTE Plan VTE Prophylaxis Plan VTE Prophylaxis will be ordered: Yes
--- NOTE | 2024-02-17 15:21 | Pharmacy Report ---
Pharmacy PK ABX Note - Date of Service February 17, 2024 - Assessment and Plan Assessment 58 year old F receiving vancomycin/zosyn for treatment of sepsis suspected pulmonary source. Recent diagnosis of pneumonia, was on augmentin outpatient. Patient has pmh including breast cancer with metastasis on chemotherapy. Procal 14.2, Tmax 39.3 C, WBC 3.16. Plan Vancomycin * Loading dose: 1250 mg IV x 1 * Maintenance dose: 750 mg IV every 12 hours * Regimen is predicted to achieve target AUC/B[place]ON of 400-600 mg/L.hr * Trough to be ordered 02/18 with AM labs Pharmacy will continue to follow and will adjust dose/frequency as necessary. Thank you. Pharmacy has transitioned to AUC monitoring for vancomycin. AUC/BENTON is the preferred PK/PD target and is associated with decreased risk of nephrotoxicity compared to traditional trough targets.
[2024-02-17] MEDS: D5NSS + 20MEQ KCL 20 MEQ/1,000 ML BAG IV SCH (15:35)
[2024-02-17] MEDS: PANTOprazole 40 MG in SYRINGE 0 ML IV ONE (16:42)
[2024-02-17] MEDS: POTASSIUM CHLORIDE / WTR 10 MEQ/100 ML PLCT IV ONE (16:42)
[2024-02-17] MEDS: ONDANSETRON INJ 2 MG/ML 2 ML VIAL IV SCH (16:45)
[2024-02-17] MEDS: PIPER/TAZO 4.5g in D5W MINI-B 100 ML IV SCH (19:00)
[2024-02-17] MEDS: ALBUTEROL 0.083% NEBU SOLN 3 ML VIAL NEB SCH (19:30)
[2024-02-17] MEDS: VANCOMYCIN HCL 750 MG in SODIUM CHLORIDE 0.9% 250 ML IV SCH (20:49)
[2024-02-18] MEDS: ALBUTEROL 0.083% NEBU SOLN 3 ML VIAL NEB PRN (06:16)
[2024-02-18 06:37] LABS: Anisocytosis Present; Basophils # (auto) 0.02 K/uL (0.00-0.20); Basophils % (auto) 1.2 %; Dohle Bodies 1+; Hematocrit (blood only) 22.1 % (37.0-47.0); Hemoglobin 7.3 g/dl (12.0-16.0); Immature Granulocytes # (auto) 0.02 K/uL (0.01-0.20); Immature Granulocytes % (auto) 1.2 %; Lymphocytes # (auto) 0.08 K/uL (1.20-3.40); Lymphocytes % (auto) 4.8 %; Mean Corpuscular Hemoglobin 33.2 pg (25.0-34.0); Mean Corpuscular Volume 100.5 fL (80.0-100.0); Mean Platelet Volume 13.2 fL (9.4-12.4); Monocytes # (auto) 0.09 K/uL (0.11-0.59); Monocytes % (auto) 5.4 %; Neutrophils # (auto) 1.45 K/uL (1.40-6.50); Neutrophils % (auto) 87.4 %; Platelet Count 31 K/uL (130-400); Polychromasia 1+; RDW Coefficient of Variation 23.5 % (11.5-14.5); RDW Standard Deviation 85.2 fL (36.4-46.3); Toxic Granulation 1+; Toxic Vacuolation 1+; White Blood Count 1.66 K/ul (4.8-10.8)
[2024-02-18 06:42] LABS: Albumin Level 2.7 gm/dl (3.4-5.0); BUN Creatinine Ratio 29.2 (10-20); Bilirubin,Total 1.1 mg/dl (0.2-1.0); Calcium 6.7 mg/dl (8.6-10.3); Creatinine Clr Calc Pharmacy 115.9 ml/min; Est GFR (African American) 123.6 ml/min; Est GFR (Non-African American) 106.6 ml/min; Globulin 2.6 gm/dl (2.5-4.0); Potassium 3.2 mmol/L (3.5-5.1); Total Protein 5.3 gm/dl (6.0-8.3); Troponin I High Sensitivity 14.5 pg/ml (0-14)
--- NOTE | 2024-02-18 07:22 | Pulmonary Consultation ---
Date of Consultation February 18, 2024 Assessment & Plan (1) Metastatic breast cancer: (2) Multifocal pneumonia: (3) Pneumonia: Laterality: bilateral Lung location: lower lobe of lung P neumonia type: due to unspecified organism Qualified Code(s): J18.9 - Pneumonia, unspecified organism (4) Acute respiratory failure with hypoxia: (5) COPD with emphysema: Plan CTA chest 02/17/2024 personally reviewed: Centrilobular emphysema appreciated bilaterally Dense consolidative process appreciated in the right lower lobe Small bilateral pleural effusions, left> right Dilated proximal esophagus with small hiatal hernia Minimal mediastinal and right hilar lymphadenopathy -- Multilobar pneumonia In immunosuppressed patient Nasal MRSA negative, respiratory bio fire negative for everything Procalcitonin 14.2 --Acute hypoxic respiratory failure Likely secondary to above -- COPD with emphysema Only on albuterol at home -- Metastatic breast cancer On chemotherapy Plan: Recommend swallow eval as there is high risk the patient is aspirating, keep the patient n.p.o. till swallow eval is done Continue with broad-spectrum antibiotic, follow sputum culture Given nasal MRSA being negative, Okay to discontinue vancomycin Recommend 2D echo if not already done Case was discussed with Dr. Perales Please note the above document was generated using voice recognition software. It may contain grammatical, syntax or spelling errors.Any formal questions or concerns about the content, text or information contained within the body of this dictation should be directly addressed to the provider for clarification. History of Present Illness Attending Physician: Trever Keith MD History of Present Illness 58-year-old female presents to the hospital with complaints of generalized weakness and shortness of breath Past medical history: Stage IV metastatic breast cancer currently on chemotherapy, COPD, anxiety, agitation Pulmonary positive for multilobar pneumonia. Patient was recently at [facility] for pneumonia and was discharged on Augmentin. At the time of examination patient was on high flow 40 L, 100% saturating 95 to 96%, I was able to successfully go down to 80%. She was very lethargic. Answering questions appropriately Complains of 1 bout of loose stools prior to coming to the hospital. Did complain of chills and subjective fever. Has been coughing up copious amount of phlegm. Denies any abdominal pain No nausea vomiting. Appetite is poor. Social history:> [id number] smoking history, currently smoking half a pack a day. No history of lung cancer in the family Allergies Allergy/AdvReac Type Severity Reaction Status Date / Time No Known Allergies Allergy Verified 12/12/23 13:45 Home Medications Medication Instructions Recorded Confirmed Type multivitamin 1 tab PO QAM 06/21/20 02/17/24 History anastrozole 1 mg tablet (Arimidex) 1 mg PO QPM 12/28/20 02/17/24 History gabapentin 100 mg capsule 100 mg PO TID 12/28/20 02/17/24 History cholecalciferol (vitamin D3) 25 25 mcg PO QAM 11/26/22 02/17/24 History mcg (1,000 unit) tablet (Vitamin D3) magnesium 250 mg tablet 500 mg PO QAM 11/26/22 02/17/24 History vitamin E 400 unit tablet 45 mg PO QAM 11/26/22 02/17/24 History vitamin B complex 1 tab PO DAILY 12/09/22 02/17/24 History aspirin 325 mg tablet 325 mg PO DAILY 06/27/23 02/17/24 History pantoprazole 40 mg tablet,delayed 40 mg PO DAILY 06/27/23 02/17/24 History release oxycodone 5 mg tablet 5 mg PO UD PRN Pain 10/09/23 02/17/24 History albuterol sulfate 90 mcg/actuation 1 puff inhalation DIRECTED PRN 02/17/24 02/17/24 History aerosol inhaler Other amoxicillin 875 mg-potassium 1 tab PO BID 02/17/24 02/17/24 History clavulanate 125 mg tablet clotrimazole 10 mg jane 10 mg PO DIRECTED PRN Other 02/17/24 02/17/24 History dexamethasone 4 mg tablet 4 mg PO QAM 02/17/24 02/17/24 History lidocaine-prilocaine 2.5 %-2.5 % 1 applic topical UD PRN Other 02/17/24 02/17/24 History topical cream ondansetron HCl 8 mg tablet 8 mg PO DIRECTED PRN n/v 02/17/24 02/17/24 History oxycodone 20 mg/mL oral concentrate 20 mg PO DIRECTED PRN Pain 02/17/24 02/17/24 History Patient History Medical History Limb alert care status left arm Gallstones Brain aneurysm left ophthalmic aneurysm s/p DSA 11/08 with [facility] neurosurgery Neuropathy HANDS AND FEET HX: benign breast biopsy (11/01/19) right breast Breast cancer 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 History of colonoscopy Hx of left mastectomy (05/25/20) with [place] Lymph node identification History of reconstruction of left breast (05/25/20) History of breast biopsy (11/02/19) left breast Family History Grandfather (Maternal) , great grandmother; diagnosed @ 80 yr old Breast cancer Father Family history of diabetes mellitus Mother Family history of diabetes mellitus Brother Family history of diabetes mellitus Social History Smoking Status: Current every day smoker Tobacco Type: Cigarettes Age Started Using Tobacco: 14; Age Quit Using Tobacco: 54; packs per day: 1; Cigarettes Per Day: 5-7; Second Hand Exposure: Yes ( smokes); Do You Dip or Chew Tobacco: No; Hx Alcohol Use: No Hx Substance Use: No Preferred Language: Citizen Of [place] Communication Ability: Effective Visual Impairment: No Limitations Hearing Ability: Normal Gaming Table Operator Required: No Beliefs That Will Affect Care: None marital status: Current Living Situation: Spouse current occupational status: employed current occupation: [employer] unemployment from COVID to Breast Cancer How many Children do You have: 2 Feels Safe at Home: Yes Safety Concerns: Feels Safe At This Time Childhood Exposure to Second-Hand Smoke: Yes caffeine: Yes (tea 2 cups/day) during the past year weight has: remained stable Dental Care, Regularly: No Physical Activity Frequency: Does not Exercise Physical Activity Frequency Comment: her work required a lot of activity but is off now Seatbelt Use: always Sunscreen Use: No Assistive Devices: Bedside Commode Review of Systems 2 Review of Systems: All systems reviewed & are unremarkable except as noted in HPI & below Physical Exam 2 Physical Exam: Constitutional: No acute distress HEENT: EOMI, PERRLA Respiratory system: Recent entry bilaterally, no wheeze, no rhonchi, positive crackles bilaterally CVS: S1-S2 positive, no murmurs or gallops Abdomen: Soft, nontender, nondistended, positive bowel sounds x4 Extremities: +2 pulses bilaterally radialis/ dorsalis pedis, no cyanosis, +1 pitting edema bilateral lower extremity Neuro: Somnolent but easily arousable, oriented x3 Psych: Normal mood and affect G/U: No Schultz Skin: no rashes, warm and dry Lymphatic: no cervical or axillary lymphadenopathy Results & Data Results & Data Vital Signs (Past 12 Hours) Vital Signs Temp Pulse Pulse Resp BP BP BP 02/18/24 06:19 109 H 29 H 02/18/24 06:18 109 H 29 H 02/18/24 06:08 02/18/24 04:00 02/18/24 03:34 37.4 C 106 H 22 94/62 L 02/18/24 03:03 98 H 18 02/17/24 23:01 37.0 C 89 16 86/58 L 02/17/24 22:01 86 02/17/24 21:59 88 02/17/24 21:16 02/17/24 20:00 02/17/24 19:41 36.6 C 86 20 93/63 L Pulse Ox O2 Del Method O2 Flow Rate FiO2 02/18/24 06:19 92 High Flow Nasal Cannula 40 100 02/18/24 06:18 92 High Flow Nasal Cannula 40 100 02/18/24 06:08 90 High Flow Nasal Cannula 50 90 02/18/24 04:00 89 L High Flow Nasal Cannula 30 80 02/18/24 03:34 92 CPAP 02/18/24 03:03 93 High Flow Nasal Cannula 30 90 02/17/24 23:01 95 CPAP 02/17/24 22:01 95 High Flow Nasal Cannula 30 80 02/17/24 21:59 02/17/24 21:16 85 L Oxymask 15 02/17/24 20:00 Oxymask 15 02/17/24 19:41 92 Oxymask 15.0 Laboratory Results 02/18/24 05:49 02/18/24 05:49 PG Care Time/CCT Total # of Minutes Spent Total Time Spent with Patient: Total time spent is greater than 50% in coordination of care (as documented) at patient's floor/unit and/or counseling patient: Coding Level of Care Code 01611 INT INP/OBS CARE MIN Diagnoses Metastatic breast cancer C50.919 Multifocal pneumonia J18.9 Pneumonia J18.9 Laterality: bilateral Lung location: lower lobe of lung Pneumonia type: due to unspecified organism Acute respiratory failure with hypoxia J96.01 COPD with emphysema J43.9
[2024-02-18] MEDS: UMECLIDINIUM BROMIDE 62.5MCG/BLISTER 7 PUFFS/INHALER INH SCH (08:00)
[2024-02-18] MEDS: POTASSIUM CHLORIDE / WTR 10 MEQ/100 ML PLCT IV SCH (09:47)
--- NOTE | 2024-02-18 14:56 | Pharmacy Report ---
Pharmacy PK ABX Note - Date of Service February 18, 2024 - Assessment and Plan Assessment 02/17 Blood cultures negative at 24 hours. MRSA nasal swab negative. Discussed with hospitalist possible de-escalation of vancomycin. Patient does remain febrile today. To be reviewed. SCr change, current dosing now predicting below target AUC/BENTON, baseline appears to be ~0.6. Will adjust dose today. 02/16 58 year old F receiving vancomycin/zosyn for treatment of sepsis suspected pulmonary source. Recent diagnosis of pneumonia, was on augmentin outpatient. Patient has pmh including breast cancer with metastasis on chemotherapy. Procal 14.2, Tmax 39.3 C, WBC 3.16. Plan Vancomycin * Loading dose: 1250 mg IV x 1 * Maintenance dose: 750 mg IV every 12 hours, now predicting below target AUC/BENTON * Adjust dose to 1000 mg q8H * Regimen is predicted to achieve target AUC/BENTON of 400-600 mg/L.hr * Trough ordered 02/18 with AM labs Pharmacy will continue to follow and will adjust dose/frequency as necessary. Thank you. Pharmacy has transitioned to AUC monitoring for vancomycin. AUC/BENTON is the preferred PK/PD target and is associated with decreased risk of nephrotoxicity compared to traditional trough targets.
--- NOTE | 2024-02-18 15:17 | Hospitalist Progress Note ---
Date of Service February 18, 2024 Assessment & Plan (1) Sepsis: Plan: Sepsis Acute metabolic encephalopathy Was brought in unresponsive, not being talking and taking any medications since 2 days Was discharged from [facility] last Friday on oral Augmentin but the patient has not been taking it --CT Head:No acute infarct or intracranial hemorrhage. 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 Moderate right and large left mastoid effusions. Mental status slowly improving Reorient frequently to minimize delirium (2) Pneumonia: Plan: Sepsis Immunocompromised state Pneumonia Acute respiratory failure with hypoxia H/O Metastatic breast cancer to bone, liver and brain --Chest CTA:No pulmonary emboli identified. Consolidation most pronounced in the right lower lobe suggestive of pneumonia versus aspiration.Trace right and small left pleural effusions. Mediastinal and hilar lymphadenopathy redemonstrated. -- BioFire negative -- Nasal MRSA Negative --Blood Cx pending Aspiration precautions Empirically on vancomycin, Zosyn Continue supplemental oxygen as needed Appreciate pulmonology input (3) Metastatic breast cancer: Plan: Metastasis to liver, bone and brain Has been on chemo received chemo on 04 February and next chemo was scheduled for 02/19/24 Follows with [facility] oncology Dr. Moncada Needs follow-up with oncology on discharge Pancytopenia Secondary to chemotherapy Monitor CBC Noted drop in hemoglobin No obvious bleeding issues Hemoglobin drop likely dilutional due to IV fluids Mild troponin elevation Likely demand ischemia in setting of sepsis, hypoxia Doubt ACS Monitor H/O COPD Ongoing tobacco use as per record Only on albuterol at home Continue nebs as needed (4) Anxiety with agitation: Plan: Gets very agitated and aggressive while awake Pain control (5) Hypotension: Plan: Continue IV fluids Monitor BP (6) Electrolyte imbalance: Plan: Monitor and replete electrolytes as needed (7) Cancer related pain: Plan: Minimize pain medications as able (8) Change in mental status: Plan DVT Px: SCDs Re: Significant thrombocytopenia CODE STATUS DNR/DNI Admission and Anticipated Discharge Date Admission Date: February 17, 2024 Subjective Patient is seen and examined at bedside Poor historian Reports chronic bilateral leg pain Admits to have some dyspnea today Discussed with patient's family at bedside Patient denies any chest pain No other complaints Review of Systems Review of Systems: All systems reviewed & are unremarkable except as noted in Subjective Physical Exam Physical Exam: Physical Exam: Vitals signs as noted above General Appearance: Thin, frail, chronic ill appearing, no apparent distress Head: normocephalic, Atraumatic Eyes: normal inspection, EOMI Neck: supple, Trachea midline Respiratory/Chest: Normal breath sounds, CTA, +Port, No accessory muscle use Cardiovascular: S1, S2, No murmur, +Tachycardia Abdomen/GI:Soft, Non tender, Bowel sounds present Extremities/Musculoskeletal:normal inspection, Trace edema Neurologic/Psych:AAOX2, grossly no focal neurological deficits Skin: normal color, warm Results & Data Results & Data Vital Signs (Past 12 Hours) Vital Signs Temp Pulse Pulse Resp BP Pulse Ox O2 Del Method 02/18/24 11:00 39.1 C H 110 H 28 H 100/68 90 High Flow Nasal Cannula 02/18/24 07:25 High Flow Nasal Cannula 02/18/24 07:00 113 H 02/18/24 07:00 38 C H 109 H 30 H 110/74 92 High Flow Nasal Cannula 02/18/24 06:19 109 H 29 H 92 High Flow Nasal Cannula 02/18/24 06:18 109 H 29 H 92 High Flow Nasal Cannula 02/18/24 06:08 90 High Flow Nasal Cannula 02/18/24 04:00 89 L High Flow Nasal Cannula 02/18/24 03:34 37.4 C 106 H 22 94/62 L 92 CPAP 02/18/24 03:03 98 H 18 93 High Flow Nasal Cannula O2 Flow Rate FiO2 02/18/24 11:00 40 100 02/18/24 07:25 40 02/18/24 07:00 02/18/24 07:00 40 100 02/18/24 06:19 40 100 02/18/24 06:18 40 100 02/18/24 06:08 50 90 02/18/24 04:00 30 80 02/18/24 03:34 02/18/24 03:03 30 90 Laboratory Results Short CBC 02/18/24 Range/Units 05:49 WBC 1.66 L (4.8-10.8) K/ul Hgb 7.3 L (12.0-16.0) g/dl Hct 22.1 L (37.0-47.0) % Plt Count 31 L (130-400) K/uL BMP 02/18/24 05:49 Sodium 143 Potassium 3.2 L Chloride 114 H Carbon Dioxide 23 BUN 14 Creatinine 0.48 L D Glucose 142 H Calcium 6.7 L Liver Function 02/18/24 Range/Units 05:49 Total Bilirubin 1.1 H (0.2-1.0) mg/dl AST 23 (13-39) U/L ALT 36 (7-52) U/L Alkaline Phosphatase 80 (34-104) U/L Albumin 2.7 L (3.4-5.0) gm/dl (1) Sepsis Acute respiratory failure type: with hypoxia Sepsis acute organ dysfunction status: with acute organ dysfunction Sepsis type: sepsis due to unspecified organism Severe sepsis shock status: unspecified (2) Pneumonia Laterality: bilateral Lung location: lower lobe of lung Pneumonia type: due to unspecified organism Qualified Code(s): J18.9 - Pneumonia, unspecified organism (8) Change in mental status Altered mental status type: disorientation Qualified Code(s): R41.0 - Disorientation, unspecified
[2024-02-18] MEDS: VANCOMYCIN HCL 1,000 MG in SODIUM CHLORIDE 0.9% 250 ML IV SCH (15:53)
[2024-02-18] MEDS: PANTOprazole 40 MG in SYRINGE 0 ML IV SCH (16:19)
[2024-02-18] MEDS: BUDESONIDE 0.25 MG/2 ML VIAL (PULMICORT) NEB SCH (19:28)
[2024-02-18] MEDS: FORMOTEROL 20 MCG/2 ML VIAL INH SCH (19:29)
[2024-02-18] MEDS: guaiFENesin 600 MG TABCR PO SCH (21:23)
[2024-02-18] MEDS: GABAPENTIN 100 MG CAP PO SCH (21:23)
[2024-02-18] MEDS: ACETAMINOPHEN 1,000 MG/100 ML VIAL IV PRN (21:24)
[2024-02-18] MEDS ORDERED: methylPREDNISolone 125 MG/2 ML VIAL IV STA (21:52)
[2024-02-18 22:18] LABS: Magnesium 2.1 mg/dl (1.7-2.4)
[2024-02-18] MEDS: IPRATROPIUM BROMIDE NEB SOLN 0.02% 0.5MG/2.5ML VIAL INH STA (22:24)
[2024-02-18] MEDS: LEVALBUTEROL 1.25 MG/3 ML NEB NEB STA (22:24)
[2024-02-18] MEDS: FUROSEMIDE INJ 20 MG/2 ML VIAL IV ONE (22:28)
[2024-02-18] MEDS: ALBUMIN 25% 25 GM/100 ML VIAL IV ONE (22:29)
[2024-02-18] MEDS: methylPREDNISolone 20 MG in SYRINGE 0 ML IV ONE (22:29)
[2024-02-18 23:04] LABS: Allen Test Pos (Pos); HCO3 ABG 20 mmol/L (19-24); Oxygen Saturation ABG 96.3 % (90-95); PCO2 ABG 28 mmHg (35-46); PO2 ABG 79 mmHg (80-95); pH ABG 7.47 (7.35-7.45)
[2024-02-19] MEDS: POTASSIUM CHLORIDE / WTR 10 MEQ/100 ML PLCT IV SCH (00:18)
[2024-02-19 07:08] LABS: Anisocytosis Present; Basophils # (auto) 0.01 K/uL (0.00-0.20); Basophils % (auto) 0.5 %; Dohle Bodies 1+; Hematocrit (blood only) 23.5 % (37.0-47.0); Hemoglobin 7.7 g/dl (12.0-16.0); Immature Granulocytes # (auto) 0.03 K/uL (0.01-0.20); Immature Granulocytes % (auto) 1.6 %; Lymphocytes # (auto) 0.12 K/uL (1.20-3.40); Lymphocytes % (auto) 6.2 %; Mean Corpuscular Hemoglobin 32.9 pg (25.0-34.0); Mean Corpuscular Hgb Conc 32.8 g/dL (32.0-36.0); Mean Corpuscular Volume 100.4 fL (80.0-100.0); Monocytes # (auto) 0.11 K/uL (0.11-0.59); Monocytes % (auto) 5.7 %; Neutrophils # (auto) 1.66 K/uL (1.40-6.50); Platelet Count 37 K/uL (130-400); Platelet Estimate Decreased (Normal); Polychromasia 1+; RDW Coefficient of Variation 22.7 % (11.5-14.5); Red Blood Count 2.34 M/uL (4.20-5.40); White Blood Count 1.93 K/ul (4.8-10.8)
--- NOTE | 2024-02-19 07:13 | Pulmonology Progress Note ---
Date of Service February 19, 2024 Assessment & Plan (1) Metastatic breast cancer: (2) Multifocal pneumonia: (3) Pneumonia: Laterality: bilateral Lung location: lower lobe of lung P neumonia type: due to unspecified organism Qualified Code(s): J18.9 - Pneumonia, unspecified organism (4) Acute respiratory failure with hypoxia: (5) COPD with emphysema: Plan CTA chest 02/17/2024 personally reviewed: Centrilobular emphysema appreciated bilaterally Dense consolidative process appreciated in the right lower lobe Small bilateral pleural effusions, left> right Dilated proximal esophagus with small hiatal hernia Minimal mediastinal and right hilar lymphadenopathy -- Multilobar pneumonia In immunosuppressed patient Nasal MRSA negative, respiratory bio fire negative for everything Procalcitonin 14.2 Recommend swallow eval as there is high risk the patient is aspirating, keep the patient n.p.o. till swallow eval is done --Acute hypoxic respiratory failure Likely secondary to above -- COPD with emphysema Only on albuterol at home -- Metastatic breast cancer On chemotherapy Plan: Chest x-ray from today shows worsening compared to yesterday. It seems the patient a lot of fluids overnight. Stop all IV fluids. Potassium being replaced, Lasix to be given to the patient Given the patient is having difficulty bringing up the phlegm, I will add nebulized hypertonic saline along with flutter valve Continue with antibiotic, follow sputum culture Recommend 2D echo if not already done Case was discussed with Dr. Perales and RN at bedside Please note the above document was generated using voice recognition software. It may contain grammatical, syntax or spelling errors.Any formal questions or concerns about the content, text or information contained within the body of this dictation should be directly addressed to the provider for clarification. Admission and Anticipated Discharge Date Admission Date: February 17, 2024 Subjective Patient seen and examined at bedside. No acute distress, no adverse events overnight She was saturating 95% on 40 L, 50%, I went down to 35 L Patient's was in the room at the time of examination She has been coughing, still complains of difficulty bringing up the phlegm. Has not been using flutter valve She denies any abdominal pain. Appetite is poor No nausea vomiting Review of Systems 2 Review of Systems: All systems reviewed & are unremarkable except as noted in Subjective Physical Exam 2 Physical Exam: Constitutional: No acute distress HEENT: EOMI, PERRLA Respiratory system: Decreased air entry bilaterally, no wheeze, minimal rhonchi, positive crackles bilaterally CVS: S1-S2 positive, no murmurs or gallops Abdomen: Soft, nontender, nondistended, positive bowel sounds x4 Extremities: +2 pulses bilaterally radialis/ dorsalis pedis, no cyanosis, +1 pitting edema bilateral lower extremity Neuro: Awake alert, oriented x3 Psych: Normal mood and affect G/U: No Schultz Skin: no rashes, warm and dry Lymphatic: no cervical or axillary lymphadenopathy Results & Data Results & Data Vital Signs (Past 12 Hours) Vital Signs Temp Pulse Pulse Resp BP Pulse Ox O2 Del Method 02/19/24 03:25 80 20 93 High Flow Nasal Cannula 02/19/24 03:11 36.5 C 84 20 102/71 94 High Flow Nasal Cannula 02/19/24 01:36 83 30 H 70 L High Flow Nasal Cannula 02/18/24 23:19 37.3 C 94 H 20 94/61 L 93 High Flow Nasal Cannula 02/18/24 22:25 100 H 16 93 High Flow Nasal Cannula 02/18/24 22:04 100 H 02/18/24 21:43 102 H 16 92 High Flow Nasal Cannula 02/18/24 19:54 38.1 C H 110 H 22 107/72 89 L High Flow Nasal Cannula 02/18/24 19:45 High Flow Nasal Cannula 02/18/24 19:33 110 H 16 91 High Flow Nasal Cannula 02/18/24 19:31 110 H 16 91 High Flow Nasal Cannula O2 Flow Rate FiO2 02/19/24 03:25 40 60 02/19/24 03:11 02/19/24 01:36 40 02/18/24 23:19 02/18/24 22:25 40 90 02/18/24 22:04 02/18/24 21:43 40 80 02/18/24 19:54 02/18/24 19:45 40 80 02/18/24 19:33 40 80 02/18/24 19:31 40 80 Laboratory Results 02/19/24 06:15 02/18/24 05:49 PG Care Time/CCT Total # of Minutes Spent Total Time Spent with Patient: Total time spent is greater than 50% in coordination of care (as documented) at patient's floor/unit and/or counseling patient: Coding Level of Care Code 31725 SUB INP/OBS CARE 50MIN Diagnoses Metastatic breast cancer C50.919 Multifocal pneumonia J18.9 Pneumonia J18.9 Laterality: bilateral Lung location: lower lobe of lung Pneumonia type: due to unspecified organism Acute respiratory failure with hypoxia J96.01 COPD with emphysema J43.9
--- NOTE | 2024-02-19 07:13 | XRay Report ---
XR chest 1V portable HISTORY: 58 years-old Female low o2 acute hypoxia COMPARISON: 02/17/2024 TECHNIQUE: AP view of the chest FINDINGS: Cardiac silhouette is enlarged. Right IJ Rhnuww-y-Hzed catheter is unchanged. Surgical clips are agai n noted projected over the chest. No pneumothorax. Pulmonary vascular congestion. And pulmonary emphy sema. Progressive worsening of the mixed interstitial and alveolar opacities in the mid to lower lung zone predominant distribution. Increased size of layering pleural effusions. IMPRESSION: 1. Cardiomegaly with worsening pulmonary edema and increased size of the layering pleural effusions. 2. Bibasilar predominant consolidation suggestive of pneumonia. 3. Emphysema. ACT 112: Negative or not required by law. The above report was generated using voice recognition software. It may contain grammatical, syntax o r spelling errors. Electronically signed by: Gustavo Ferguson M.D. 02/19/2024 7:12 AM
[2024-02-19 07:38] LABS: BUN Creatinine Ratio 17.3 (10-20); Calcium 7.5 mg/dl (8.6-10.3); Creatinine Clr Calc Pharmacy 112.2 ml/min; Est GFR (African American) 120.4 ml/min; Est GFR (Non-African American) 103.9 ml/min; Magnesium 2.1 mg/dl (1.7-2.4); Potassium 3.9 mmol/L (3.5-5.1)
[2024-02-19] MEDS: POTASSIUM CHLORIDE / WTR 20 MEQ/100 ML PLCT IV SCH (08:24)
[2024-02-19] MEDS: MAGNESIUM SULFATE / D5W 1 GM/100 ML BAG IV SCH (08:35)
[2024-02-19] MEDS: FUROSEMIDE INJ 20 MG/2 ML VIAL IV ONE ×2 (08:41→21:59)
[2024-02-19] MEDS: ASPIRIN 325 MG ECTAB PO SCH (08:44)
--- NOTE | 2024-02-19 09:40 | XRay Report ---
SINGLE VIEW CHEST CLINICAL HISTORY: Hypoxia FINDINGS: An AP, portable, upright chest radiograph is compared to study dated 02/18/2024 and correlat ed with chest CT dated 02/17/2024. A right internal jugular central venous infusion port is unchanged i n position. The heart is enlarged noting atherosclerotic calcification of the thoracic aorta. There i s pulmonary vascular congestion. Emphysema and chronic interstitial thickening is similar to previous . There are layering pleural effusions with dependent consolidation. No pneumothorax is seen. The ske letal structures are osteopenic. The bony thorax is grossly intact. Surgical clips are again seen in the left breast. IMPRESSION: 1. Cardiomegaly and emphysema with pulmonary vascular congestion. 2. Layering pleural effusions with dense bibasilar consolidation. This is similar to previous and the appearance favors pneumonia/aspiration pneumonitis. Radiographic follow-up to resolution is recommen ded. ACT 112: Negative or not required by law. Electronically signed by: Brady Maria M.D. 02/19/2024 9:39 AM
[2024-02-19 16:08] LABS: Potassium 3.9 mmol/L (3.5-5.1)
[2024-02-19 16:09] LABS: BUN Creatinine Ratio 19.3 (10-20); Calcium 7.8 mg/dl (8.6-10.3); Creatinine Clr Calc Pharmacy 102.4 ml/min; Est GFR (African American) 116.8 ml/min; Est GFR (Non-African American) 100.8 ml/min
[2024-02-19 16:12] LABS: Magnesium 2.5 mg/dl (1.7-2.4); Phosphorus 1.1 mg/dl (2.5-4.9)
[2024-02-19] MEDS ORDERED: SODIUM PHOSPHATE 3 MMOL/1 ML INFUSION IV ONE (16:14)
--- NOTE | 2024-02-19 16:41 | Hospitalist Progress Note ---
Date of Service February 19, 2024 Assessment & Plan (1) Sepsis: Plan: Sepsis Acute metabolic encephalopathy Was brought in unresponsive, not being talking and taking any medications since 2 days Was discharged from [place] last Friday on oral Augmentin but the patient has not been taking it --CT Head:No acute infarct or intracranial hemorrhage. 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 Moderate right and large left mastoid effusions. Reorient frequently to minimize delirium Mental status much improved (2) Pneumonia: Plan: Sepsis Immunocompromised state Pneumonia Acute respiratory failure with hypoxia H/O Metastatic breast cancer to bone, liver and brain --Chest CTA:No pulmonary emboli identified. Consolidation most pronounced in the right lower lobe suggestive of pneumonia versus aspiration.Trace right and small left pleural effusions. Mediastinal and hilar lymphadenopathy redemonstrated. -- BioFire negative -- Nasal MRSA Negative --Blood Cx negative today Aspiration precautions Empirically on vancomycin, Zosyn>> Zosyn alone Weaned off of high flow to nasal cannula today Appreciate pulmonology input Chest x-ray today showed worsening pneumonia Given IV Lasix today Aggressive pulmonary hygiene Added hypertonic saline (3) Metastatic breast cancer: Plan: Metastasis to liver, bone and brain Has been on chemo received chemo on 04 February and next chemo was scheduled for 02/19/24 Follows with [facility] oncology Dr. Moncada Needs follow-up with oncology on discharge Pancytopenia Secondary to chemotherapy Monitor CBC No obvious bleeding issues Hemoglobin drop likely dilutional due to IV fluids Hemoglobin, platelet count slightly better today Hypophosphatemia Replete electrolytes as needed Monitor Mild troponin elevation Likely demand ischemia in setting of sepsis, hypoxia --ECHO: Mild concentric LVH. EF 55 to 60%. Grade 1 diastolic dysfunction. No significant valvular disease. No pericardial effusion. No wall motion abnormality. Doubt ACS Monitor H/O COPD Ongoing tobacco use as per record Only on albuterol at home Continue nebs as needed (4) Anxiety with agitation: Plan: Gets very agitated and aggressive intermittently Pain control (5) Hypotension: Plan: Received IV fluids, albumin Added midodrine Monitor BP (6) Electrolyte imbalance: Plan: Monitor and replete electrolytes as needed (7) Cancer related pain: Plan: Minimize pain medications as able (8) Change in mental status: Plan DVT Px: SCDs Re: Significant thrombocytopenia CODE STATUS DNR/DNI Admission and Anticipated Discharge Date Admission Date: February 17, 2024 Subjective Patient is seen and examined at bedside Slightly better when compared to yesterday Swallowing without any issues as per family at bedside Still has some cough, dyspnea today Off high flow oxygen today No other new complaints Review of Systems Review of Systems: All systems reviewed & are unremarkable except as noted in Subjective Physical Exam Physical Exam: Physical Exam: Vitals signs as noted above General Appearance: Thin, frail, chronic ill appearing, no apparent distress Head: normocephalic, Atraumatic Eyes: normal inspection, EOMI Neck: supple, Trachea midline Respiratory/Chest: Decreased breath sounds, +Basal crackles, No accessory muscle use Cardiovascular: S1, S2, No murmur, +Tachycardia Abdomen/GI:Soft, Non tender, Bowel sounds present Extremities/Musculoskeletal:normal inspection, Trace edema Neurologic/Psych:AAOX2, grossly no focal neurological deficits Skin: normal color, warm Results & Data Results & Data Vital Signs (Past 12 Hours) Vital Signs Temp Pulse Pulse Resp BP Pulse Ox O2 Del Method 02/19/24 13:41 94 H 93/69 L 02/19/24 12:06 92 H 90/60 L 02/19/24 11:24 88 89/67 L 02/19/24 11:13 36.7 C 86 19 85/55 L 93 High Flow Nasal Cannula 02/19/24 10:07 89 17 96 Nasal Cannula 02/19/24 09:00 High Flow Nasal Cannula 02/19/24 08:00 77 02/19/24 07:57 36.6 C 86 22 94/65 L 90 High Flow Nasal Cannula 02/19/24 07:19 84 17 96 High Flow Nasal Cannula O2 Flow Rate FiO2 02/19/24 13:41 02/19/24 12:06 02/19/24 11:24 02/19/24 11:13 02/19/24 10:07 7 02/19/24 09:00 7 02/19/24 08:00 02/19/24 07:57 02/19/24 07:19 40 50 Laboratory Results Short CBC 02/19/24 Range/Units 06:15 WBC 1.93 L (4.8-10.8) K/ul Hgb 7.7 L (12.0-16.0) g/dl Hct 23.5 L (37.0-47.0) % Plt Count 37 L (130-400) K/uL BMP 02/18/24 02/19/24 02/19/24 05:49 06:15 15:13 Sodium 143 137 135 L Potassium 3.2 L 3.9 D 3.9 Chloride 114 H 105 103 Carbon Dioxide 23 23 25 BUN 14 9 11 Creatinine 0.48 L D 0.52 L 0.57 L Glucose 142 H 134 H 109 H Calcium 6.7 L 7.5 L 7.8 L Liver Function 02/18/24 Range/Units 05:49 Total Bilirubin 1.1 H (0.2-1.0) mg/dl AST 23 (13-39) U/L ALT 36 (7-52) U/L Alkaline Phosphatase 80 (34-104) U/L Albumin 2.7 L (3.4-5.0) gm/dl (1) Sepsis Acute respiratory failure type: with hypoxia Sepsis acute organ dysfunction status: with acute organ dysfunction Sepsis type: sepsis due to unspecified organism Severe sepsis shock status: unspecified (2) Pneumonia Laterality: bilateral Lung location: lower lobe of lung Pneumonia type: due to unspecified organism Qualified Code(s): J18.9 - Pneumonia, unspecified organism (8) Change in mental status Altered mental status type: disorientation Qualified Code(s): R41.0 - Disorientation, unspecified
[2024-02-19] MEDS: SODIUM PHOSPHATE 21 MMOL in SODIUM CHLORIDE 0.9% 500 ML IV ONE (16:50)
[2024-02-19] MEDS: MIDODRINE HCL 2.5 MG TAB PO SCH (16:51)
[2024-02-19] MEDS: SODIUM CHLOR 7% 4 ML NEB NEB SCH (19:38)
--- NOTE | 2024-02-19 21:30 | Communication Note ---
Date of Service: February 19, 2024
[2024-02-19] MEDS ORDERED: methylPREDNISolone 125 MG/2 ML VIAL IV STA (21:31)
[2024-02-19] MEDS: LEVALBUTEROL 1.25 MG/3 ML NEB NEB STA (21:55)
[2024-02-19] MEDS: IPRATROPIUM BROMIDE NEB SOLN 0.02% 0.5MG/2.5ML VIAL INH STA (21:55)
[2024-02-19] MEDS: methylPREDNISolone 20 MG in SYRINGE 0 ML IV STA (21:59)
[2024-02-20 07:01] LABS: Hematocrit (blood only) 22.3 % (37.0-47.0); Hemoglobin 7.7 g/dl (12.0-16.0); Mean Corpuscular Hemoglobin 33.2 pg (25.0-34.0); Mean Corpuscular Hgb Conc 34.5 g/dL (32.0-36.0); Mean Corpuscular Volume 96.1 fL (80.0-100.0); Mean Platelet Volume 12.3 fL (9.4-12.4); Platelet Count 50 K/uL (130-400); RDW Standard Deviation 75.1 fL (36.4-46.3); Red Blood Count 2.32 M/uL (4.20-5.40); White Blood Count 4.11 K/ul (4.8-10.8)
[2024-02-20] MEDS: LEVALBUTEROL 1.25 MG/3 ML NEB NEB SCH (07:09)
[2024-02-20] MEDS: IPRATROPIUM BROMIDE NEB SOLN 0.02% 0.5MG/2.5ML VIAL INH SCH (07:09)
--- NOTE | 2024-02-20 07:12 | XRay Report ---
XR chest 1V portable HISTORY: 58 years-old Female f/u acute shortness of breath COMPARISON: 02/19/2024 TECHNIQUE: AP view of the chest FINDINGS: Cardiac silhouette is enlarged. Mid to lower lung zone predominant mixed interstitial and alveolar op acities redemonstrated. Pulmonary vascular congestion. Emphysema. Small pleural effusions. Right IJ I [id number] catheter. Surgical clips project over the chest. Bones appear grossly intact. IMPRESSION: 1. Stable appearance of the chest with mixed mid to lower lung zone interstitial and alveolar opaciti es suggestive of multifocal pneumonia. 2. Cardiomegaly with pulmonary vascular congestion. 3. Small pleural effusions. ACT 112: Negative or not required by law. The above report was generated using voice recognition software. It may contain grammatical, syntax o r spelling errors. Electronically signed by: Gustavo Ferguson M.D. 02/20/2024 7:11 AM
[2024-02-20 07:41] LABS: Basophils # (auto) 0.01 K/uL (0.00-0.20); Basophils % (auto) 0.2 %; Dohle Bodies 2+; Immature Granulocytes # (auto) 0.07 K/uL (0.01-0.20); Immature Granulocytes % (auto) 1.7 %; Lymphocytes # (auto) 0.15 K/uL (1.20-3.40); Lymphocytes % (auto) 3.6 %; Monocytes % (auto) 4.9 %; Neutrophils # (auto) 3.68 K/uL (1.40-6.50); Neutrophils % (auto) 89.6 %; Platelet Estimate Decreased (Normal); Toxic Granulation 1+
[2024-02-20 07:47] LABS: BUN Creatinine Ratio 18.3 (10-20); Calcium 7.4 mg/dl (8.6-10.3); Creatinine Clr Calc Pharmacy 97.3 ml/min; Est GFR (African American) 114.8 ml/min; Est GFR (Non-African American) 99.1 ml/min; Phosphorus 2.5 mg/dl (2.5-4.9); Potassium 3.7 mmol/L (3.5-5.1)
--- NOTE | 2024-02-20 08:38 | XRay Report ---
XR chest 1V portable HISTORY: Shortness of breath. COMPARISON: Chest 02/19/2024. FINDINGS: No pneumothorax. The heart remains enlarged. A right jugular Port-A-Cath terminates in the distal SVC. There are surgical clips within the left breast. Emphysema is again noted. There are smal l bilateral pleural effusions. Mid to lower lung zone interstitial and alveolar airspace opacities mo st pronounced on the right are again noted. IMPRESSION: 1. Redemonstration of the mid to lower lung zone interstitial and alveolar opacities suggestive of a multifocal pneumonia. 2. Mild pulmonary vascular congestion and small bilateral pleural effusions again noted. ACT 112: Negative or not required by law. Electronically signed by: Luigi Alonzo M.D. 02/20/2024 8:36 AM
--- NOTE | 2024-02-20 08:44 | Pulmonology Progress Note ---
Date of Service February 20, 2024 Assessment & Plan (1) Metastatic breast cancer: (2) Multifocal pneumonia: (3) Pneumonia: Laterality: bilateral Lung location: lower lobe of lung P neumonia type: due to unspecified organism Qualified Code(s): J18.9 - Pneumonia, unspecified organism (4) Acute respiratory failure with hypoxia: (5) COPD with emphysema: Plan CTA chest 02/17/2024 personally reviewed: Centrilobular emphysema appreciated bilaterally Dense consolidative process appreciated in the right lower lobe Small bilateral pleural effusions, left> right Dilated proximal esophagus with small hiatal hernia Minimal mediastinal and right hilar lymphadenopathy 2D echo 02/19/2024: EF 55 to 60%, grade 1 diastolic dysfunction, RV normal in size and function, mild concentric LVH -- Multilobar pneumonia In immunosuppressed patient Nasal MRSA negative, respiratory bio fire negative for everything Procalcitonin 14.2 Recommend swallow eval as there is high risk the patient is aspirating, keep the patient n.p.o. till swallow eval is done --Acute hypoxic respiratory failure Likely secondary to above -- COPD with emphysema Only on albuterol at home -- Metastatic breast cancer On chemotherapy Plan: In/out: +2.3 L since coming to the hospital Chest x-ray showed minimal improvement compared to yesterday Recommend continuing diuretics to keep the patient negative balance Continue with nebulized hypertonic saline along with flutter valve Out of the bed to chair Continue with antibiotic, follow sputum culture Case was discussed with RN at bedside Please note the above document was generated using voice recognition software. It may contain grammatical, syntax or spelling errors.Any formal questions or concerns about the content, text or information contained within the body of this dictation should be directly addressed to the provider for clarification. Admission and Anticipated Discharge Date Admission Date: February 17, 2024 Subjective Patient seen and examined at bedside. No acute distress, no adverse events overnight Patient's was in the room at the time of examination She was on 30 L, 65% high flow, saturating 95-96%, I went down to 55%. She looked more alert and energetic. She stated that she is feeling better than yesterday Still bringing up phlegm with no blood in it. Appetite is still poor Denies any chest pain Review of Systems 2 Review of Systems: All systems reviewed & are unremarkable except as noted in Subjective Physical Exam 2 Physical Exam: Constitutional: No acute distress HEENT: EOMI, PERRLA Respiratory system: Decreased air entry bilaterally, no wheeze, no rhonchi, positive crackles bilaterally CVS: S1-S2 positive, no murmurs or gallops Abdomen: Soft, nontender, nondistended, positive bowel sounds x4 Extremities: +2 pulses bilaterally radialis/ dorsalis pedis, no cyanosis, +1 pitting edema bilateral lower extremity Neuro: Awake alert, oriented x3 Psych: Normal mood and affect G/U: No Schultz Skin: no rashes, warm and dry Lymphatic: no cervical or axillary lymphadenopathy Results & Data Results & Data Vital Signs (Past 12 Hours) Vital Signs Temp Pulse Pulse Resp BP BP Pulse Ox 02/20/24 07:46 37.7 C H 97 H 22 106/75 82/53 L 100 02/20/24 07:11 94 H 18 98 02/20/24 03:27 37.4 C 100 H 20 92/62 L 98 02/20/24 01:44 101 H 20 94 02/20/24 01:14 102 H 95 02/19/24 23:17 38.0 C H 112 H 22 97/64 L 86 L 02/19/24 22:16 113 H 22 92 02/19/24 21:59 114 H 02/19/24 21:00 O2 Del Method O2 Flow Rate FiO2 02/20/24 07:46 High Flow Nasal Cannula 40 02/20/24 07:11 High Flow Nasal Cannula 40 95 02/20/24 03:27 High Flow Nasal Cannula 02/20/24 01:44 High Flow Nasal Cannula 40 95 02/20/24 01:14 High Flow Nasal Cannula 35 95 02/19/24 23:17 High Flow Nasal Cannula 02/19/24 22:16 High Flow Nasal Cannula 35 95 02/19/24 21:59 02/19/24 21:00 High Flow Nasal Cannula 35 95 Laboratory Results 02/20/24 06:38 02/20/24 06:38 PG Care Time/CCT Total # of Minutes Spent Total Time Spent with Patient: Total time spent is greater than 50% in coordination of care (as documented) at patient's floor/unit and/or counseling patient: Coding Level of Care Code 30222 SUB INP/OBS CARE 2/35MIN Diagnoses Metastatic breast cancer C50.919 Multifocal pneumonia J18.9 Pneumonia J18.9 Laterality: bilateral Lung location: lower lobe of lung Pneumonia type: due to unspecified organism Acute respiratory failure with hypoxia J96.01 COPD with emphysema J43.9
[2024-02-20] MEDS ORDERED: predniSONE 20 MG TAB PO SCH (09:00)
[2024-02-20] MEDS: PANTOprazole 40 MG TAB PO SCH (11:09)
--- NOTE | 2024-02-20 13:41 | Palliative Care Consultation ---
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 She is receptive to rehab, prefers [facility] over [facility]. Her goal overall is to resume chemo. She does not like being in the hospital. It makes her feel too vulnerable, plus she cant smoke. I showed her how to use flutter and I would suggest ordering Chest PT for her q shift bc shes very congested and a little half hearted about using flutter. [employer]Share EMR Link review shows she was responding to her chemo, so it is reasonable to try and help her get back to where she can re-eval for chemo resumption vs dose adjustment vs regimen modification. Ill follow up Friday. (5) Palliative care by specialist: Discussed Palliative Medicine provides specialized medical care for patients with a serious illness. We offer a focus on quality of life through reduction of symptom burden/more control over their illness, for patients and their family. Palliative Medicine interventions can be given along with curative treatment. I specifically clarified we are not hospice, which is a visiting nurse service that focuses on care delivered at the very end of life. Plan As above [facility] ongoing chest PT q shift Flutter education provided, she can only exhale for 3-4 seconds and tires easily after 5 attempts. CPT will improve her airway clearance as flutter is not likely to do much for her with current fatigue. Primary team, PROFESSOR OF PSYCHOLOGY team and nursing updated. Formal Pulm eval in OP space may be helpful - she is a lifelong smoker 1PPD x 50 years now 1/2 PPD, no prior PFT/no prior pulm eval. [facility] Pulm OP visit with full PFT 4-6 weeks after dc. She is not currently on home COPD inhaler regimen. Please page me through weekend for additional needs. Thank you for allowing us to participate in the ongoing care of this patient. Please page with any additional concerns. 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 Initial diagnosis 2019 - completed neoadjuvant chemotherapy (12/07/2019-04/18/2020), L mastectomy (05/2020) and radiation (09/2020). She had been on Anastrozole from 09/2020-09/2023 at which time noted to have recurrent disease. Patient has undergoing palliative radiation to C-spine / pelvis / brain / L-spine and has been on systemic treatment (gemcitabine/carboplatin). PET CT completed 01/26 with favorable response to treatment. She has completed AD (living will/POA and POLST forms) which are scanned into [employer]Share EMR. Patient is a No Code (DNR/DNI). She is seen bedside with and dtr She denies acute pain - blood transfusion relieved BLE pain She c/o dyspnea and feeling weak She asks if the transfusion caused the PNA reviewed aspiration findings and suggested video swallow-see ACP discussion below She tells me her cancer tx was improving her illness and she wants to resume Does not like being in the hospital Aware of swallow study and asking what next step might be [facility] [place] [facility] Data review via uShare EMR Link: 02/14/24 [facility] Pain regimen: Continue oxycodone 10 mg Q4H PRN moderate pain Start oxycodone 15 mg Q4H PRN severe pain Hydromorphone 1 mg IV Q3H PRN breakthrough pain- would limit use if possible in light finding an oral regimen for home Would have Naloxone available as needed - close monitoring of BP Continue [employer] dexamethasone 4 mg BID Will need to discuss with oncology long-term plan for steroid use Gabapentin 300 mg TID Recommend starting Tylenol 975 mg TID 02/14/24 Oncology IP [facility] consult: DATE OF DIAGNOSIS: 10/2019 TREATMENT HISTORY: -she completed neoadjuvant dose dense AC x4 and weekly Paclitaxel x 12 between 12/07/2019-04/18/2020. -left mastectomy and sentinel for [id number]/25/2020 - adjuvant radiation treatment completed in September 2020. -Anastrozole September 2020- September 2023. For recurrent disease: -10/24/2023 completed palliative XRT to C spine -10/31/23 completed palliative radiation therapy to the pelvis -brain radiation completed x 3 treatments - Lumbar spine radiation treatment. CURRENT TREATMENT: Systemic chemotherapy with gemcitabine, carboplatinevery 21 days(10/31/2023--). Zometa every 6 weeks Last treatment was 02/05/24. She did not receive pegfilgrastim. At that time she had started dex 4mg bid for possible adrenal insufficiency as prescribed by Dr. Moncada. PET imaging 01/27/24 showed decreased metabolic activity in numerous skeletal lesions as well as SCV, mediastinal, hilar LN. Imaging was down to the level of the thighs. Pt is difficult to elicit from patient as she is generally uncooperative. Her offers some history as follows: Was doing "well" yesterday ambulating and eating. Overnight developed severe bilat LE pain particularly in knees and ankles. She did not take any pain meds at home though has oxycodone prescribed. She has been continuing dexamethasone per which was prescribed in december for orthostatic hypotension with concerns for adrenal insufficiency (SBP down into 70's at times). She and deny any falls or trauma to LE. Pt denies back pain, but notes she had weakness trying to stand up last night. She denies fevers, headache, chest pain, abd pain, n/v/d, bowel/bladder incontinence, low back pain. Has not been eating well today. Currently she is staying she wants to leave so she can have a cigarette. She has received 2 units prbcs in ED. She has been given IV morphine and fentanyl in ED with some relief only with fentanyl but didn't last long. RADIOLOGY: BILATERAL XR KNEE 4 OR MORE VIEWS; XR ANKLE 3 OR MORE VIEWS; XR TIB/FIB 2 VIEWS IMPRESSION 1. No acute fracture is identified. 2. Sclerotic/lucent lesions in the bilateral medial femoral condyles and medial tibial plateaus, suspicious for osseous metastasis, however given the relatively symmetrical nature of these lesions bone infarct is of consideration as well. Recommend clinical correlation with excess corticosteroid use, hemoglobinopathies, prior trauma or radiation therapy, or gout, among other etiologies of osteonecrosis. 3. Additional sclerotic/lucent lesion in the left fossa intercondylaris, suspicious for osseous metastasis. PET CT SKULL BASE TO MID-THIGH FDG - 01/27/2024 2:02 pm IMPRESSION 1. Positive response to therapy with decreased metabolic activity within the left supraclavicular, mediastinal, and hilar lymph nodes. Decreased metabolic activity within the osseous metastases and no residual hypermetabolism within the hepatic metastases. 2. Small calcification is seen within the right cerebellar hemisphere, near the site of the previously identified intracranial metastasis. Findings may represent post treatment change. Attention on the follow-up MRI brain scheduled for 03/12/2024 is recommended. PATHOLOGY: Final Diagnosis A. Lymph Node, Left Supraclavicular, CT/US guided fine needle aspiration: Adequacy:Satisfactory for evaluation.Category: Malignant.Interpretation: Metastatic carcinoma, favor breast primary (see comment).Other:Cellblock: The histological sections of the cellblock preparation show similar findings. Comment: The direct smears and histologic sections of cell block show malignant epithelial cells arranged in small groups and single cells with hyperchromatic nuclei, irregular nuclear contours, and moderate amounts of granular cytoplasm with focal vacuolization. Immunohistochemical studies with appropriate controls are performed (A1 5%); the tumor cells are positive for TRPS1 (focal), GCDFP and CK7 while negative for ER and GATA3. The immunophenotype is not entirely specif ic. Based history of breast cancer, breast primary is favored. Recommend clinical correlation.Overall the morphology and immunohistochemical profile support the diagnosis as stated above. Recommend correlation with clinical and radiographic findings. Allergies Allergy/AdvReac Type Severity Reaction Status Date / Time No Known Allergies Allergy Verified 12/12/23 13:45 Home Medications Medication Instructions Recorded Confirmed Type multivitamin 1 tab PO QAM 06/21/20 02/17/24 History anastrozole 1 mg tablet (Arimidex) 1 mg PO QPM 12/28/20 02/17/24 History gabapentin 100 mg capsule 100 mg PO TID 12/28/20 02/17/24 History cholecalciferol (vitamin D3) 25 25 mcg PO QAM 11/26/22 02/17/24 History mcg (1,000 unit) tablet (Vitamin D3) magnesium 250 mg tablet 500 mg PO QAM 11/26/22 02/17/24 History vitamin E 400 unit tablet 45 mg PO QAM 11/26/22 02/17/24 History vitamin B complex 1 tab PO DAILY 12/09/22 02/17/24 History aspirin 325 mg tablet 325 mg PO DAILY 06/27/23 02/17/24 History pantoprazole 40 mg tablet,delayed 40 mg PO DAILY 06/27/23 02/17/24 History release oxycodone 5 mg tablet 5 mg PO UD PRN Pain 10/09/23 02/17/24 History albuterol sulfate 90 mcg/actuation 1 puff inhalation DIRECTED PRN 02/17/24 02/17/24 History aerosol inhaler Other amoxicillin 875 mg-potassium 1 tab PO BID 02/17/24 02/17/24 History clavulanate 125 mg tablet clotrimazole 10 mg jane 10 mg PO DIRECTED PRN Other 02/17/24 02/17/24 History dexamethasone 4 mg tablet 4 mg PO QAM 02/17/24 02/17/24 History lidocaine-prilocaine 2.5 %-2.5 % 1 applic topical UD PRN Other 02/17/24 02/17/24 History topical cream ondansetron HCl 8 mg tablet 8 mg PO DIRECTED PRN n/v 02/17/24 02/17/24 History oxycodone 20 mg/mL oral concentrate 20 mg PO DIRECTED PRN Pain 02/17/24 02/17/24 History Patient History Medical History Limb alert care status left arm Gallstones Brain aneurysm 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 History of colonoscopy Hx of left mastectomy (05/25/20) with [place] Lymph node identification History of reconstruction of left breast (05/25/20) History of breast biopsy (11/02/19) left breast Family History Grandfather (Maternal) , great grandmother; diagnosed @ 80 yr old Breast cancer Father Family history of diabetes mellitus Mother Family history of diabetes mellitus Brother Family history of diabetes mellitus Social History Smoking Status: Current every day smoker Tobacco Type: Cigarettes Age Started Using Tobacco: 14; Age Quit Using Tobacco: 54; packs per day: 1; Cigarettes Per Day: 5-7; Second Hand Exposure: Yes ( smokes); Do You Dip or Chew Tobacco: No; Hx Alcohol Use: No Hx Substance Use: No Preferred Language: Belarusian Communication Ability: Effective Visual Impairment: No Limitations Hearing Ability: Normal Stockfeed Miller Required: No Beliefs That Will Affect Care: None marital status: Current Living Situation: Spouse current occupational status: employed current occupation: [employer] unemployment from COVID to Breast Cancer How many Children do You have: 2 Feels Safe at Home: Yes Safety Concerns: Feels Safe At This Time Childhood Exposure to Second-Hand Smoke: Yes caffeine: Yes (tea 2 cups/day) during the past year weight has: remained stable Dental Care, Regularly: No Physical Activity Frequency: Does not Exercise Physical Activity Frequency Comment: her work required a lot of activity but is off now Seatbelt Use: always Sunscreen Use: No Assistive Devices: Bedside Commode Review of Systems Review of Systems: All systems reviewed & are unremarkable except as noted in Subjective Physical Exam Constitutional: + cachectic, + frail appearing and coope rative Eyes: PERRL, conjunctivae normal, anicteric sclerae ENMT: external ear and nose normal, oropharynx normal Ears: + hearing impairment hoarse voice Neck: trachea midline, no thyromegaly Respiratory: + labored breathing, + uses accessory mu scles, + cough and symmetric chest movement; + not able to speak in complete sentence Auscultation: + diminished lung sounds, + crackles, + rhonchi and + wheezes Cardiovascular: RRR, no murmur, no edema Rate/Rhythm: + tachycardic Gastrointestinal (Abdomen): Inspection/Auscultation: normal bowel sounds and + scaphoid Percussion/Palpation: abdomen soft; abdomen nontender, no guarding and abdomen not rigid Musculoskeletal: gen weakness Skin: + turgor decreased, + dry skin and + pal yolie Neurologic: AAOx3 Psychiatric: Eye Contact: + fair eye contact Affect: + depressed affect and + irritable affect Thought Process: + tangential thought process and + perseveration Thought Content: + preoccupation Suicidal Thoughts: denies suicidal thoughts Homicidal Thoughts: denies homicidal thoughts Estimated Intelligence: consistent with education level Insight: good insight Results & Data Vital Signs (Past 12 Hours) Vital Signs Temp Pulse Resp BP BP Pulse Ox O2 Del Method 02/20/24 11:21 106 H 20 90 High Flow Nasal Cannula 02/20/24 11:19 107 H 20 90 High Flow Nasal Cannula 02/20/24 11:15 37.9 C H 107 H 26 H 82/54 L 90 Free Flow/Blow-by 02/20/24 07:46 37.7 C H 97 H 22 106/75 82/53 L 100 High Flow Nasal Cannula 02/20/24 07:11 94 H 18 98 High Flow Nasal Cannula 02/20/24 03:27 37.4 C 100 H 20 92/62 L 98 High Flow Nasal Cannula 02/20/24 01:44 101 H 20 94 High Flow Nasal Cannula O2 Flow Rate FiO2 02/20/24 11:21 30 50 02/20/24 11:19 30 50 02/20/24 11:15 30 02/20/24 07:46 40 02/20/24 07:11 40 95 02/20/24 03:27 02/20/24 01:44 40 95 Laboratory Results 02/20/24 02/19/24 02/19/24 Range/Units 06:38 15:13 06:15 WBC 4.11 L 1.93 L (4.8-10.8) K/ul RBC 2.32 L 2.34 L (4.20-5.40) M/uL Hgb 7.7 L 7.7 L (12.0-16.0) g/dl POC Hgb (12.0-16.0) g/dl Hct 22.3 L 23.5 L (37.0-47.0) % POC Hct (37-47) % MCV 96.1 100.4 H (80.0-100.0) fL MCH 33.2 32.9 (25.0-34.0) pg MCHC 34.5 32.8 (32.0-36.0) g/dL RDW Std Deviation 75.1 H 83.0 H (36.4-46.3) fL RDW Coeff of Carlos 22.0 H 22.7 H (11.5-14.5) % Plt Count 50 L 37 L (130-400) K/uL MPV 12.3 12.0 (9.4-12.4) fL Immature Gran % (Auto) 1.7 1.6 % Neut % (Auto) 89.6 86.0 % Lymph % (Auto) 3.6 6.2 % [place] % (Auto) 4.9 5.7 % Eos % (Auto) 0.0 0.0 % Baso % (Auto) 0.2 0.5 % Neut # (Auto) 3.68 1.66 (1.40-6.50) K/uL Lymph # (Auto) 0.15 L 0.12 L (1.20-3.40) K/uL [place] # (Auto) 0.20 0.11 (0.11-0.59) K/uL Eos # (Auto) 0.00 0.00 (0.00-0.50) K/uL Baso # (Auto) 0.01 0.01 (0.00-0.20) K/uL Immature Gran # (Auto) 0.07 0.03 (0.01-0.20) K/uL Absolute Nucleated RBC (0.00-0.12) K/uL Nucleated RBC % (auto) % Toxic Granulation 1+ Toxic Vacuolation Dohle Bodies 2+ 1+ Platelet Estimate Decreased L Decreased L (Normal) Polychromasia 1+ Anisocytosis Present PT (9.0-12.0) Seconds INR (0.9-1.1) ABG pH (7.35-7.45) ABG pCO2 (35-46) mmHg ABG pO2 (80-95) mmHg ABG HCO3 (19-24) mmol/L ABG O2 Saturation (90-95) % ABG Base Excess (-9-1.8) mEq/L Boyd Test (Pos) VBG pH (7.36-7.41) VBG pCO2 (38-50) mmHg VBG pO2 mmHg VBG HCO3 mmol/L VBG O2 Saturation % VBG Base Excess mEq/L Oxygen Given POC Sodium (135-144) mmol/L Sodium 134 L 135 L 137 (136-145) mmol/L POC Potassium (3.3-5.0) mmol/L Potassium 3.7 3.9 3.9 D (3.5-5.1) mmol/L POC Chloride (101-112) mmol/L Chloride 100 103 105 (98-107) mmol/L Carbon Dioxide 26 25 23 (21-32) mmol/L POC Total CO2 (24-31) mmol/L Anion Gap 8 7 9 (3-11) POC Anion Gap (16-25) mmol/L POC BUN (7-18) mg/dl BUN 11 11 9 (6-23) mg/dl Creatinine 0.60 0.57 L 0.52 L (0.6-1.2) mg/dl POC Creatinine (0.6-1.3) mg/dl Est Cr Clr Drug Dosing 97.3 102.4 112.2 ml/min Est GFR ( Amer) 114.8 116.8 120.4 ml/min Est GFR (Non-Af Amer) 99.1 100.8 103.9 ml/min BUN/Creatinine Ratio 18.3 19.3 17.3 (10-20) Glucose 127 H 109 H 134 H (70-99(Fasting)) mg/dl POC Glucose (70-99) mg/dl POC Glucose (other) (70-99) mg/dl Lactate (0.4-2.0) mmol/L Calcium 7.4 L 7.8 L 7.5 L (8.6-10.3) mg/dl POC Ioniz Calcium Bruce (1.12-1.32) mmol/l Phosphorus 2.5 D 1.1 L* (2.5-4.9) mg/dl Magnesium 2.5 H 2.1 (1.7-2.4) mg/dl Total Bilirubin (0.2-1.0) mg/dl AST (13-39) U/L ALT (7-52) U/L Alkaline Phosphatase (34-104) U/L Troponin I High Sens (0-14) pg/ml B-Natriuretic Peptide (0-100) pg/ml Total Protein (6.0-8.3) gm/dl Albumin (3.4-5.0) gm/dl Globulin (2.5-4.0) gm/dl Albumin/Globulin Ratio (0.9-2) Lipase (11-82) U/L Procalcitonin 5.55 H (0-0.5) ng/ml Urine Color Urine Appearance (Clear) Urine pH (4.5-7.5) Ur Specific Superior (1.000-1.030) Urine Protein (Negative) Urine Glucose (UA) (Negative) Urine Ketones (Negative) Urine Blood (Negative) Urine Nitrite (Negative) Urine Bilirubin (Negative) Urine Urobilinogen (Negative) Ur Leukocyte Esterase (Negative) Urine WBC (Auto) (0-5) /hpf Urine RBC (Auto) (0-2) /hpf U Hyaline Cast (Auto) (0-2) /lpf U Epithel Cells (Auto) (0-2) /hpf Urine Bacteria (Auto) (None Seen) Nasal Screen MRSA (PCR) (Negative) Random Vancomycin 13.3 (10-20) mcg/ml Adenovirus (PCR) (NotDetected) B. pertussis DNA (PCR) (NotDetected) B.parapertussis DNA PCR (NotDetected) C. pneumoniae DNA (PCR) (NotDetected) Coronavirus OC43 (PCR) (NotDetected) Coronavirus HKU1 (PCR) (NotDetected) Coronavirus 229E (PCR) (NotDetected) SARS-CoV-2 (PCR) (NotDetected) Coronavirus NL63 (PCR) (NotDetected) Human Metapneumovir PCR (NotDetected) Influenza Type A (PCR) (NotDetected) Influenza Type B (PCR) (NotDetected) M. pneumoniae (PCR) (NotDetected) Parainfluenza 1 (PCR) (NotDetected) Parainfluenza 2 (PCR) (NotDetected) Parainfluenza 3 (PCR) (NotDetected) Parainfluenza 4 (PCR) (NotDetected) RSV (PCR) (NotDetected) Entero/Rhino (PCR) (NotDetected) 02/18/24 02/18/24 02/18/24 Range/Units 22:42 08:10 05:49 WBC 1.66 L (4.8-10.8) K/ul RBC 2.20 L (4.20-5.40) M/uL Hgb 7.3 L (12.0-16.0) g/dl POC Hgb (12.0-16.0) g/dl Hct 22.1 L (37.0-47.0) % POC Hct (37-47) % MCV 100.5 H (80.0-100.0) fL MCH 33.2 (25.0-34.0) pg MCHC 33.0 (32.0-36.0) g/dL RDW Std Deviation 85.2 H (36.4-46.3) fL RDW Coeff of Carlos 23.5 H (11.5-14.5) % Plt Count 31 L (130-400) K/uL MPV 13.2 H (9.4-12.4) fL Immature Gran % (Auto) 1.2 % Neut % (Auto) 87.4 % Lymph % (Auto) 4.8 % [place] % (Auto) 5.4 % Eos % (Auto) 0.0 % Baso % (Auto) 1.2 % Neut # (Auto) 1.45 (1.40-6.50) K/uL Lymph # (Auto) 0.08 L (1.20-3.40) K/uL [place] # (Auto) 0.09 L (0.11-0.59) K/uL Eos # (Auto) 0.00 (0.00-0.50) K/uL Baso # (Auto) 0.02 (0.00-0.20) K/uL Immature Gran # (Auto) 0.02 (0.01-0.20) K/uL Absolute Nucleated RBC (0.00-0.12) K/uL Nucleated RBC % (auto) % Toxic Granulation 1+ Toxic Vacuolation 1+ Dohle Bodies 1+ Platelet Estimate (Normal) Polychromasia 1+ Anisocytosis Present PT (9.0-12.0) Seconds INR (0.9-1.1) ABG pH 7.47 H (7.35-7.45) ABG pCO2 28 L (35-46) mmHg ABG pO2 79 L (80-95) mmHg ABG HCO3 20 (19-24) mmol/L ABG O2 Saturation 96.3 H (90-95) % ABG Base Excess -2.0 (-9-1.8) mEq/L Boyd Test Pos (Pos) VBG pH (7.36-7.41) VBG pCO2 (38-50) mmHg VBG pO2 mmHg VBG HCO3 mmol/L VBG O2 Saturation % VBG Base Excess mEq/L Oxygen Given 90% POC Sodium (135-144) mmol/L Sodium 143 (136-145) mmol/L POC Potassium (3.3-5.0) mmol/L Potassium 3.2 L (3.5-5.1) mmol/L POC Chloride (101-112) mmol/L Chloride 114 H (98-107) mmol/L Carbon Dioxide 23 (21-32) mmol/L POC Total CO2 (24-31) mmol/L Anion Gap 6 (3-11) POC Anion Gap (16-25) mmol/L POC BUN (7-18) mg/dl BUN 14 (6-23) mg/dl Creatinine 0.48 L D (0.6-1.2) mg/dl POC Creatinine (0.6-1.3) mg/dl Est Cr Clr Drug Dosing 115.9 ml/min Est GFR ( Amer) 123.6 ml/min Est GFR (Non-Af Amer) 106.6 ml/min BUN/Creatinine Ratio 29.2 H (10-20) Glucose 142 H (70-99(Fasting)) mg/dl POC Glucose (70-99) mg/dl POC Glucose (other) (70-99) mg/dl Lactate (0.4-2.0) mmol/L Calcium 6.7 L (8.6-10.3) mg/dl POC Ioniz Calcium Bruce (1.12-1.32) mmol/l Phosphorus (2.5-4.9) mg/dl Magnesium 2.1 (1.7-2.4) mg/dl Total Bilirubin 1.1 H (0.2-1.0) mg/dl AST 23 (13-39) U/L ALT 36 (7-52) U/L Alkaline Phosphatase 80 (34-104) U/L Troponin I High Sens 14.5 H (0-14) pg/ml B-Natriuretic Peptide 132 H (0-100) pg/ml Total Protein 5.3 L D (6.0-8.3) gm/dl Albumin 2.7 L (3.4-5.0) gm/dl Globulin 2.6 (2.5-4.0) gm/dl Albumin/Globulin Ratio 1.0 (0.9-2) Lipase (11-82) U/L Procalcitonin (0-0.5) ng/ml Urine Color Urine Appearance (Clear) Urine pH (4.5-7.5) Ur Specific [place] (1.000-1.030) Urine Protein (Negative) Urine Glucose (UA) (Negative) Urine Ketones (Negative) Urine Blood (Negative) Urine Nitrite (Negative) Urine Bilirubin (Negative) Urine Urobilinogen (Negative) Ur Leukocyte Esterase (Negative) Urine WBC (Auto) (0-5) /hpf Urine RBC (Auto) (0-2) /hpf U Hyaline Cast (Auto) (0-2) /lpf U Epithel Cells (Auto) (0-2) /hpf Urine Bacteria (Auto) (None Seen) Nasal Screen MRSA (PCR) (Negative) Random Vancomycin (10-20) mcg/ml Adenovirus (PCR) (NotDetected) B. pertussis DNA (PCR) (NotDetected) B.parapertussis DNA PCR (NotDetected) C. pneumoniae DNA (PCR) (NotDetected) Coronavirus OC43 (PCR) (NotDetected) Coronavirus HKU1 (PCR) (NotDetected) Coronavirus 229E (PCR) (NotDetected) SARS-CoV-2 (PCR) (NotDetected) Coronavirus NL63 (PCR) (NotDetected) Human Metapneumovir PCR (NotDetected) Influenza Type A (PCR) (NotDetected) Influenza Type B (PCR) (NotDetected) M. pneumoniae (PCR) (NotDetected) Parainfluenza 1 (PCR) (NotDetected) Parainfluenza 2 (PCR) (NotDetected) Parainfluenza 3 (PCR) (NotDetected) Parainfluenza 4 (PCR) (NotDetected) RSV (PCR) (NotDetected) Entero/Rhino (PCR) (NotDetected) 02/17/24 02/17/24 02/17/24 Range/Units Unknown 21:44 15:09 WBC (4.8-10.8) K/ul RBC (4.20-5.40) M/uL Hgb (12.0-16.0) g/dl POC Hgb (12.0-16.0) g/dl Hct (37.0-47.0) % POC Hct (37-47) % MCV (80.0-100.0) fL MCH (25.0-34.0) pg MCHC (32.0-36.0) g/dL RDW Std Deviation (36.4-46.3) fL RDW Coeff of Carlos (11.5-14.5) % Plt Count (130-400) K/uL MPV (9.4-12.4) fL Immature Gran % (Auto) % Neut % (Auto) % Lymph % (Auto) % [place] % (Auto) % Eos % (Auto) % Baso % (Auto) % Neut # (Auto) (1.40-6.50) K/uL Lymph # (Auto) (1.20-3.40) K/uL [place] # (Auto) (0.11-0.59) K/uL Eos # (Auto) (0.00-0.50) K/uL Baso # (Auto) (0.00-0.20) K/uL Immature Gran # (Auto) (0.01-0.20) K/uL Absolute Nucleated RBC (0.00-0.12) K/uL Nucleated RBC % (auto) % Toxic Granulation Toxic Vacuolation Dohle Bodies Platelet Estimate (Normal) Polychromasia Anisocytosis PT (9.0-12.0) Seconds INR (0.9-1.1) ABG pH (7.35-7.45) ABG pCO2 (35-46) mmHg ABG pO2 (80-95) mmHg ABG HCO3 (19-24) mmol/L ABG O2 Saturation (90-95) % ABG Base Excess (-9-1.8) mEq/L Boyd Test (Pos) VBG pH (7.36-7.41) VBG pCO2 (38-50) mmHg VBG pO2 mmHg VBG HCO3 mmol/L VBG O2 Saturation % VBG Base Excess mEq/L Oxygen Given POC Sodium (135-144) mmol/L Sodium (136-145) mmol/L POC Potassium (3.3-5.0) mmol/L Potassium (3.5-5.1) mmol/L POC Chloride (101-112) mmol/L Chloride (98-107) mmol/L Carbon Dioxide (21-32) mmol/L POC Total CO2 (24-31) mmol/L Anion Gap (3-11) POC Anion Gap (16-25) mmol/L POC BUN (7-18) mg/dl BUN (6-23) mg/dl Creatinine (0.6-1.2) mg/dl POC Creatinine (0.6-1.3) mg/dl Est Cr Clr Drug Dosing ml/min Est GFR ( Amer) ml/min Est GFR (Non-Af Amer) ml/min BUN/Creatinine Ratio (10-20) Glucose (70-99(Fasting)) mg/dl POC Glucose (70-99) mg/dl POC Glucose (other) (70-99) mg/dl Lactate 1.2 (0.4-2.0) mmol/L Calcium (8.6-10.3) mg/dl POC Ioniz Calcium Bruce (1.12-1.32) mmol/l Phosphorus 3.0 (2.5-4.9) mg/dl Magnesium (1.7-2.4) mg/dl Total Bilirubin (0.2-1.0) mg/dl AST (13-39) U/L ALT (7-52) U/L Alkaline Phosphatase (34-104) U/L Troponin I High Sens 12.2 D 26.0 H (0-14) pg/ml B-Natriuretic Peptide (0-100) pg/ml Total Protein (6.0-8.3) gm/dl Albumin (3.4-5.0) gm/dl Globulin (2.5-4.0) gm/dl Albumin/Globulin Ratio (0.9-2) Lipase (11-82) U/L Procalcitonin (0-0.5) ng/ml Urine Color Urine Appearance (Clear) Urine pH (4.5-7.5) Ur Specific Superior (1.000-1.030) Urine Protein (Negative) Urine Glucose (UA) (Negative) Urine Ketones (Negative) Urine Blood (Negative) Urine Nitrite (Negative) Urine Bilirubin (Negative) Urine Urobilinogen (Negative) Ur Leukocyte Esterase (Negative) Urine WBC (Auto) (0-5) /hpf Urine RBC (Auto) (0-2) /hpf U Hyaline Cast (Auto) (0-2) /lpf U Epithel Cells (Auto) (0-2) /hpf Urine Bacteria (Auto) (None Seen) Nasal Screen MRSA (PCR) Negative (Negative) Random Vancomycin (10-20) mcg/ml Adenovirus (PCR) Not Detected (NotDetected) B. pertussis DNA (PCR) Not Detected (NotDetected) B.parapertussis DNA PCR Not Detected (NotDetected) C. pneumoniae DNA (PCR) Not Detected (NotDetected) Coronavirus OC43 (PCR) Not Detected (NotDetected) Coronavirus HKU1 (PCR) Not Detected (NotDetected) Coronavirus 229E (PCR) Not Detected (NotDetected) SARS-CoV-2 (PCR) Not Detected (NotDetected) Coronavirus NL63 (PCR) Not Detected (NotDetected) Human Metapneumovir PCR Not Detected (NotDetected) Influenza Type A (PCR) Not Detected (NotDetected) Influenza Type B (PCR) Not Detected (NotDetected) M. pneumoniae (PCR) Not Detected (NotDetected) Parainfluenza 1 (PCR) Not Detected (NotDetected) Parainfluenza 2 (PCR) Not Detected (NotDetected) Parainfluenza 3 (PCR) Not Detected (NotDetected) Parainfluenza 4 (PCR) Not Detected (NotDetected) RSV (PCR) Not Detected (NotDetected) Entero/Rhino (PCR) Not Detected (NotDetected) 02/17/24 02/17/24 02/17/24 Range/Units 13:30 13:07 12:13 WBC (4.8-10.8) K/ul RBC (4.20-5.40) M/uL Hgb (12.0-16.0) g/dl POC Hgb 9.5 L (12.0-16.0) g/dl Hct (37.0-47.0) % POC Hct 28 L (37-47) % MCV (80.0-100.0) fL MCH (25.0-34.0) pg MCHC (32.0-36.0) g/dL RDW Std Deviation (36.4-46.3) fL RDW Coeff of Carlos (11.5-14.5) % Plt Count (130-400) K/uL MPV (9.4-12.4) fL Immature Gran % (Auto) % Neut % (Auto) % Lymph % (Auto) % [place] % (Auto) % Eos % (Auto) % Baso % (Auto) % Neut # (Auto) (1.40-6.50) K/uL Lymph # (Auto) (1.20-3.40) K/uL [place] # (Auto) (0.11-0.59) K/uL Eos # (Auto) (0.00-0.50) K/uL Baso # (Auto) (0.00-0.20) K/uL Immature Gran # (Auto) (0.01-0.20) K/uL Absolute Nucleated RBC (0.00-0.12) K/uL Nucleated RBC % (auto) % Toxic Granulation Toxic Vacuolation Dohle Bodies Platelet Estimate (Normal) Polychromasia Anisocytosis PT (9.0-12.0) Seconds INR (0.9-1.1) ABG pH (7.35-7.45) ABG pCO2 (35-46) mmHg ABG pO2 (80-95) mmHg ABG HCO3 (19-24) mmol/L ABG O2 Saturation (90-95) % ABG Base Excess (-9-1.8) mEq/L Boyd Test (Pos) VBG pH 7.42 H (7.36-7.41) VBG pCO2 34 L (38-50) mmHg VBG pO2 41 mmHg VBG HCO3 22 mmol/L VBG O2 Saturation 69.5 % VBG Base Excess -1.7 mEq/L Oxygen Given POC Sodium 138 (135-144) mmol/L Sodium (136-145) mmol/L POC Potassium 2.8 L (3.3-5.0) mmol/L Potassium (3.5-5.1) mmol/L POC Chloride 104 (101-112) mmol/L Chloride (98-107) mmol/L Carbon Dioxide (21-32) mmol/L POC Total CO2 20 L (24-31) mmol/L Anion Gap (3-11) POC Anion Gap 18.0 (16-25) mmol/L POC BUN 22 H (7-18) mg/dl BUN (6-23) mg/dl Creatinine (0.6-1.2) mg/dl POC Creatinine 0.8 (0.6-1.3) mg/dl Est Cr Clr Drug Dosing ml/min Est GFR ( Amer) ml/min Est GFR (Non-Af Amer) ml/min BUN/Creatinine Ratio (10-20) Glucose (70-99(Fasting)) mg/dl POC Glucose (70-99) mg/dl POC Glucose (other) 143 H (70-99) mg/dl Lactate (0.4-2.0) mmol/L Calcium (8.6-10.3) mg/dl POC Ioniz Calcium Bruce 0.96 L (1.12-1.32) mmol/l Phosphorus (2.5-4.9) mg/dl Magnesium (1.7-2.4) mg/dl Total Bilirubin (0.2-1.0) mg/dl AST (13-39) U/L ALT (7-52) U/L Alkaline Phosphatase (34-104) U/L Troponin I High Sens (0-14) pg/ml B-Natriuretic Peptide (0-100) pg/ml Total Protein (6.0-8.3) gm/dl Albumin (3.4-5.0) gm/dl Globulin (2.5-4.0) gm/dl Albumin/Globulin Ratio (0.9-2) Lipase (11-82) U/L Procalcitonin (0-0.5) ng/ml Urine Color Yellow Urine Appearance Clear (Clear) Urine pH 6.5 (4.5-7.5) Ur Specific [place] > 1.045 H (1.000-1.030) Urine Protein 2+ H (Negative) Urine Glucose (UA) Negative (Negative) Urine Ketones Negative (Negative) Urine Blood Negative (Negative) Urine Nitrite Negative (Negative) Urine Bilirubin Negative (Negative) Urine Urobilinogen Negative (Negative) Ur Leukocyte Esterase Negative (Negative) Urine WBC (Auto) 0-5 (0-5) /hpf Urine RBC (Auto) 0-2 (0-2) /hpf U Hyaline Cast (Auto) 0-2 (0-2) /lpf U Epithel Cells (Auto) 0-2 (0-2) /hpf Urine Bacteria (Auto) None Seen (None Seen) Nasal Screen MRSA (PCR) (Negative) Random Vancomycin (10-20) mcg/ml Adenovirus (PCR) (NotDetected) B. pertussis DNA (PCR) (NotDetected) B.parapertussis DNA PCR (NotDetected) C. pneumoniae DNA (PCR) (NotDetected) Coronavirus OC43 (PCR) (NotDetected) Coronavirus HKU1 (PCR) (NotDetected) Coronavirus 229E (PCR) (NotDetected) SARS-CoV-2 (PCR) (NotDetected) Coronavirus NL63 (PCR) (NotDetected) Human Metapneumovir PCR (NotDetected) Influenza Type A (PCR) (NotDetected) Influenza Type B (PCR) (NotDetected) M. pneumoniae (PCR) (NotDetected) Parainfluenza 1 (PCR) (NotDetected) Parainfluenza 2 (PCR) (NotDetected) Parainfluenza 3 (PCR) (NotDetected) Parainfluenza 4 (PCR) (NotDetected) RSV (PCR) (NotDetected) Entero/Rhino (PCR) (NotDetected) 02/17/24 02/17/24 Range/Units 12:11 12:02 WBC 3.16 L (4.8-10.8) K/ul RBC 2.96 L (4.20-5.40) M/uL Hgb 9.7 L (12.0-16.0) g/dl POC Hgb (12.0-16.0) g/dl Hct 29.2 L (37.0-47.0) % POC Hct (37-47) % MCV 98.6 (80.0-100.0) fL MCH 32.8 (25.0-34.0) pg MCHC 33.2 (32.0-36.0) g/dL RDW Std Deviation 82.4 H (36.4-46.3) fL RDW Coeff of Carlos 23.5 H (11.5-14.5) % Plt Count 32 L (130-400) K/uL MPV 9.7 (9.4-12.4) fL Immature Gran % (Auto) 7.9 % Neut % (Auto) 80.7 % Lymph % (Auto) 5.1 % [place] % (Auto) 6.0 % Eos % (Auto) 0.0 % Baso % (Auto) 0.3 % Neut # (Auto) 2.55 (1.40-6.50) K/uL Lymph # (Auto) 0.16 L (1.20-3.40) K/uL [place] # (Auto) 0.19 (0.11-0.59) K/uL Eos # (Auto) 0.00 (0.00-0.50) K/uL Baso # (Auto) 0.01 (0.00-0.20) K/uL Immature Gran # (Auto) 0.25 H (0.01-0.20) K/uL Absolute Nucleated RBC 0.03 (0.00-0.12) K/uL Nucleated RBC % (auto) 0.9 % Toxic Granulation Occasional Toxic Vacuolation Occasional Dohle Bodies 1+ Platelet Estimate (Normal) Polychromasia 1+ Anisocytosis Present PT 10.9 (9.0-12.0) Seconds INR 1.0 (0.9-1.1) ABG pH (7.35-7.45) ABG pCO2 (35-46) mmHg ABG pO2 (80-95) mmHg ABG HCO3 (19-24) mmol/L ABG O2 Saturation (90-95) % ABG Base Excess (-9-1.8) mEq/L Boyd Test (Pos) VBG pH (7.36-7.41) VBG pCO2 (38-50) mmHg VBG pO2 mmHg VBG HCO3 mmol/L VBG O2 Saturation % VBG Base Excess mEq/L Oxygen Given POC Sodium (135-144) mmol/L Sodium 137 (136-145) mmol/L POC Potassium (3.3-5.0) mmol/L Potassium 2.9 L (3.5-5.1) mmol/L POC Chloride (101-112) mmol/L Chloride 102 (98-107) mmol/L Carbon Dioxide 23 (21-32) mmol/L POC Total CO2 (24-31) mmol/L Anion Gap 12 H (3-11) POC Anion Gap (16-25) mmol/L POC BUN (7-18) mg/dl BUN 27 H (6-23) mg/dl Creatinine 0.94 (0.6-1.2) mg/dl POC Creatinine (0.6-1.3) mg/dl Est Cr Clr Drug Dosing 59.2 ml/min Est GFR ( Amer) 76.4 ml/min Est GFR (Non-Af Amer) 65.9 ml/min BUN/Creatinine Ratio 28.7 H (10-20) Glucose 139 H (70-99(Fasting)) mg/dl POC Glucose 156 H (70-99) mg/dl POC Glucose (other) (70-99) mg/dl Lactate 3.3 H* (0.4-2.0) mmol/L Calcium 8.1 L (8.6-10.3) mg/dl POC Ioniz Calcium Bruce (1.12-1.32) mmol/l Phosphorus (2.5-4.9) mg/dl Magnesium (1.7-2.4) mg/dl Total Bilirubin 2.2 H (0.2-1.0) mg/dl AST 29 (13-39) U/L ALT 52 (7-52) U/L Alkaline Phosphatase 120 H (34-104) U/L Troponin I High Sens 22.6 H (0-14) pg/ml B-Natriuretic Peptide (0-100) pg/ml Total Protein 7.4 (6.0-8.3) gm/dl Albumin 3.7 (3.4-5.0) gm/dl Globulin 3.7 (2.5-4.0) gm/dl Albumin/Globulin Ratio 1.0 (0.9-2) Lipase 3 L (11-82) U/L Procalcitonin 14.20 H (0-0.5) ng/ml Urine Color Urine Appearance (Clear) Urine pH (4.5-7.5) Ur Specific Superior (1.000-1.030) Urine Protein (Negative) Urine Glucose (UA) (Negative) Urine Ketones (Negative) Urine Blood (Negative) Urine Nitrite (Negative) Urine Bilirubin (Negative) Urine Urobilinogen (Negative) Ur Leukocyte Esterase (Negative) Urine WBC (Auto) (0-5) /hpf Urine RBC (Auto) (0-2) /hpf U Hyaline Cast (Auto) (0-2) /lpf U Epithel Cells (Auto) (0-2) /hpf Urine Bacteria (Auto) (None Seen) Nasal Screen MRSA (PCR) (Negative) Random Vancomycin (10-20) mcg/ml Adenovirus (PCR) (NotDetected) B. pertussis DNA (PCR) (NotDetected) B.parapertussis DNA PCR (NotDetected) C. pneumoniae DNA (PCR) (NotDetected) Coronavirus OC43 (PCR) (NotDetected) Coronavirus HKU1 (PCR) (NotDetected) Coronavirus 229E (PCR) (NotDetected) SARS-CoV-2 (PCR) (NotDetected) Coronavirus NL63 (PCR) (NotDetected) Human Metapneumovir PCR (NotDetected) Influenza Type A (PCR) (NotDetected) Influenza Type B (PCR) (NotDetected) M. pneumoniae (PCR) (NotDetected) Parainfluenza 1 (PCR) (NotDetected) Parainfluenza 2 (PCR) (NotDetected) Parainfluenza 3 (PCR) (NotDetected) Parainfluenza 4 (PCR) (NotDetected) RSV (PCR) (NotDetected) Entero/Rhino (PCR) (NotDetected) Diagnostic Findings Chest X-Ray 02/17/24 11:53 XR chest 1V portable HISTORY: Fever, hypoxia COMPARISON: None. FINDINGS: No pneumothorax. No pleural effusions. The cardiac silhouette is mildly enlarged. Right Port-A-Cath terminates in the right atrium. Surgical clips within the left breast. Bilateral lower lung zone airspace opacities most pronounced on the right. This favors a pneumonia. There is diffuse interstitial thickening which may represent mild congestive change. IMPRESSION: 1. Bilateral lower lung zone airspace opacities which favors a pneumonia. 2. Diffuse interstitial thickening. This could be due to the pneumonia or superimposed congestive change. ACT 112: Negative or not required by law. Electronically signed by: Luigi Alonzo M.D. 02/17/2024 12:40 PM Chest CTA 02/17/24 12:12 CT angio chest PE protocol CT DOSE: 976.67 mGy.cm HISTORY: 58 years-old Female with PE, fever, breast CA, hypoxia, ams. Acute fever with hypoxia and history of breast cancer TECHNIQUE: Multiple CTA images of the chest were obtained after the intravenous administration of 112 ml Optiray. Coronal and sagittal MIPS were obtained from the axial data set and were submitted for review. All measurements were obtained according to NASCET criteria. A dose lowering technique was utilized adhering to the principles of ALARA. COMPARISON: Chest CT from outside hospital 09/16/2023 FINDINGS: CTA: Mild cardiomegaly with trace pericardial effusion. Unremarkable thoracic aorta. No pulmonary emboli identified. CT CHEST: No thyroid nodule identified. Mediastinal and hilar lymphadenopathy redemonstrated which has mildly improved compared to 09/16/2023. Trace right and small left pleural effusions. Emphysema with bronchitis. No pneumothorax. Intralobular septal thickening. Dense consolidation is most pronounced in the right lower lobe and to lesser extent within the left lower lobe dependently. Circumferential wall thickening throughout the mid to distal esophagus which is debris-filled. Posterior right hepatic lobe lesion measuring 1.7 cm, previously 2.2 cm. Left-sided mastectomy. 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 IMPRESSION: 1. No pulmonary emboli identified. 2. Progressive skeletal metastasis. 3. Consolidation most pronounced in the right lower lobe suggestive of pneumonia versus aspiration. 4. The esophagus is debris filled and demonstrates circumferential mid to distal wall thickening. 5. Mildly decreased size of the right hepatic lobe lesion. 6. Trace right and small left pleural effusions. 7. Mediastinal and hilar lymphadenopathy redemonstrated. ACT 112: Negative or not required by law. The above report was generated using voice recognition software. It may contain grammatical, syntax or spelling errors. Electronically signed by: Gustavo Ferguson M.D. 02/17/2024 2:[address] 02/17/24 12:[address] DOSE: HISTORY: Altered mental status, hx breast mets TECHNIQUE: Multiaxial CT images of the head were performed without the use of intravenous contrast. Automated exposure control was utilized for this study. A dose lowering technique was utilized adhering to the principles of ALARA. Comparison: Outside hospital brain MRI 09/30/2023. Findings: The paranasal sinuses are clear. Moderate right and large left mastoid effusions. A 9 mm sclerotic focus within the left skull base on image 7. This favors an osteoblastic metastasis. The calvarium and skull base are intact. The ventricles and sulci are within normal limits. There is no mass, hematoma, midline shift, or acute infarct. There is a punctate calcification within the right cerebellar hemisphere. Impression: 1. No acute infarct or intracranial hemorrhage. 2. 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 3. Moderate right and large left mastoid effusions. ACT 112: Negative or not required by law. Electronically signed by: Luigi Alozno M.D. 02/17/2024 1:17 PM Chest X-Ray 02/18/24 21:49 XR chest 1V portable HISTORY: 58 years-old Female low o2 acute hypoxia COMPARISON: 02/17/2024 TECHNIQUE: AP view of the chest FINDINGS: Cardiac silhouette is enlarged. Right IJ Pkxohv-[id number]-Vxru catheter is unchanged. Surgical clips are again noted projected over the chest. No pneumothorax. Pulmonary vascular congestion. And pulmonary emphysema. Progressive worsening of the mixed interstitial and alveolar opacities in the mid to lower lung zone predominant distribution. Increased size of layering pleural effusions. IMPRESSION: 1. Cardiomegaly with worsening pulmonary edema and increased size of the layering pleural effusions. 2. Bibasilar predominant consolidation suggestive of pneumonia. 3. Emphysema. ACT 112: Negative or not required by law. The above report was generated using voice recognition software. It may contain grammatical, syntax or spelling errors. Electronically signed by: Gustavo Ferguson M.D. 02/19/2024 7:12 AM Chest X-Ray 02/19/24 09:06 SINGLE VIEW CHEST CLINICAL HISTORY: Hypoxia FINDINGS: An AP, portable, upright chest radiograph is compared to study dated 02/18/2024 and correlated with chest CT dated 02/17/2024. A right internal jugular central venous infusion port is unchanged in position. The heart is enlarged noting atherosclerotic calcification of the thoracic aorta. There is pulmonary vascular congestion. Emphysema and chronic interstitial thickening is similar to previous. There are layering pleural effusions with dependent consolidation. No pneumothorax is seen. The skeletal structures are osteopenic. The bony thorax is grossly intact. Surgical clips are again seen in the left breast. IMPRESSION: 1. Cardiomegaly and emphysema with pulmonary vascular congestion. 2. Layering pleural effusions with dense bibasilar consolidation. This is similar to previous and the appearance favors pneumonia/aspiration pneumonitis. Radiographic follow-up to resolution is recommended. ACT 112: Negative or not required by law. Electronically signed by: Brady Maria M.D. 02/19/2024 9:39 AM Chest X-Ray 02/19/24 21:29 XR chest 1V portable HISTORY: Shortness of breath. COMPARISON: Chest 02/19/2024. FINDINGS: No pneumothorax. The heart remains enlarged. A right jugular Port-A-Cath terminates in the distal SVC. There are surgical clips within the left breast. Emphysema is again noted. There are small bilateral pleural effusions. Mid to lower lung zone interstitial and alveolar airspace opacities most pronounced on the right are again noted. IMPRESSION: 1. Redemonstration of the mid to lower lung zone interstitial and alveolar opacities suggestive of a multifocal pneumonia. 2. Mild pulmonary vascular congestion and small bilateral pleural effusions again noted. ACT 112: Negative or not required by law. Electronically signed by: Luigi Alonzo M.D. 02/20/2024 8:36 AM Chest X-Ray 02/20/24 07:00 XR chest 1V portable HISTORY: 58 years-old Female f/u acute shortness of breath COMPARISON: 02/19/2024 TECHNIQUE: AP view of the chest FINDINGS: Cardiac silhouette is enlarged. Mid to lower lung zone predominant mixed interstitial and alveolar opacities redemonstrated. Pulmonary vascular congestion. Emphysema. Small pleural effusions. Right IJ [id number]-g-Rsao catheter. Surgical clips project over the chest. Bones appear grossly intact. IMPRESSION: 1. Stable appearance of the chest with mixed mid to lower lung zone interstitial and alveolar opacities suggestive of multifocal pneumonia. 2. Cardiomegaly with pulmonary vascular congestion. 3. Small pleural effusions. ACT 112: Negative or not required by law. The above report was generated using voice recognition software. It may contain grammatical, syntax or spelling errors. Electronically signed by: Gustavo Ferguson M.D. 02/20/2024 7:11 AM PG Care Time/CCT Total # of Minutes Spent Total Time Spent with Patient: Total time spent is greater than 50% in coordination of care (as documented) at patient's floor/unit and/or counseling patient: I spent 110 minutes overall addressing this case: 25 min in medical data review/discussion with referring provider(s) and/or preparation for the visit incl OSH data review and review with OSH oncology 25 min in direct interaction with the patient/exam including demonstration of flutter device and chest PT 30 min in Advance Care Planning/Goals of Care discussions as detailed above in note (must be >16min) 15 min in subsequent review and synthesis of assessment and plan 15 min communicating with other providers regarding the patient's case: Prolonged Care Time Prolonged Care Time: Yes Advanced Care Planning 42216 Advanced Care Planning 30 [place] [address] IN/OBS CONSULT LVL 5,80M (25 - SIGNIFICANT, SEPARATELY IDENTIFIABLE ) Patient Type New History Comprehensive Exam Comprehensive Medical Decision Making High Complexity Diagnoses Dyspnea and respiratory abnormalities R06.00; R06.89 Weakness generalized R53.1 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
--- NOTE | 2024-02-20 16:50 | Hospitalist Progress Note ---
Date of Service February 20, 2024 Assessment & Plan (1) Sepsis: Plan: Sepsis Acute metabolic encephalopathy Was brought in unresponsive, not being talking and taking any medications since 2 days Was discharged from [facility] last Friday on oral Augmentin but the patient has not been taking it --CT Head:No acute infarct or intracranial hemorrhage. 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 Moderate right and large left mastoid effusions. Reorient frequently to minimize delirium Mental status seem to improving (2) Pneumonia: Plan: Sepsis Immunocompromised state Pneumonia Acute respiratory failure with hypoxia H/O Metastatic breast cancer to bone, liver and brain --Chest CTA:No pulmonary emboli identified. Consolidation most pronounced in the right lower lobe suggestive of pneumonia versus aspiration.Trace right and small left pleural effusions. Mediastinal and hilar lymphadenopathy redemonstrated. -- BioFire negative -- Nasal MRSA Negative --Blood Cx negative to date -- Sputum culture pending Aspiration precautions Empirically on vancomycin, Zosyn>> Zosyn alone Appreciate pulmonology input Aggressive pulmonary hygiene Added hypertonic saline Plan for video swallow study Continue diuresis as able if blood pressure tolerates Remains on high flow oxygen today (3) Metastatic breast cancer: Plan: Metastasis to liver, bone and brain Has been on chemo received chemo on 04 February and next chemo was scheduled for 02/19/24 Follows with [facility] oncology Dr. Moncada Needs follow-up with oncology on discharge Appreciate palliative care input Pancytopenia Secondary to chemotherapy No obvious bleeding issues Hemoglobin drop likely dilutional due to IV fluids Continue to monitor CBC Hypophosphatemia Replete electrolytes as needed Monitor Mild troponin elevation Likely demand ischemia in setting of sepsis, hypoxia --ECHO: Mild concentric LVH. EF 55 to 60%. Grade 1 diastolic dysfunction. No significant valvular disease. No pericardial effusion. No wall motion abnormality. Doubt ACS Monitor H/O COPD Ongoing tobacco use as per record Only on albuterol at home Continue nebs as needed (4) Anxiety with agitation: Plan: Gets very agitated and aggressive intermittently Pain control (5) Hypotension: Plan: Received IV fluids, albumin Added midodrine Monitor BP (6) Electrolyte imbalance: Plan: Monitor and replete electrolytes as needed (7) Cancer related pain: Plan: Minimize pain medications as able (8) Change in mental status: Plan DVT Px: SCDs Re: Significant thrombocytopenia CODE STATUS DNR/DNI Admission and Anticipated Discharge Date Admission Date: February 17, 2024 Subjective Patient is seen and examined at bedside Subjectively feels no significant change from yesterday Remains on high flow oxygen today More alert, awake Low-grade fever this morning Less cough today per patient Appetite poor Denies any chest pain, nausea, vomiting, abdominal pain Family at bedside Review of Systems Review of Systems: All systems reviewed & are unremarkable except as noted in Subjective Physical Exam Physical Exam: Physical Exam: Vitals signs as noted above General Appearance: Thin, frail, chronic ill appearing, no apparent distress Head: normocephalic, Atraumatic Eyes: normal inspection, EOMI Neck: supple, Trachea midline Respiratory/Chest: Decreased breath sounds, +Basal crackles, No accessory muscle use Cardiovascular: S1, S2, No murmur, +Tachycardia Abdomen/GI:Soft, Non tender, Bowel sounds present Extremities/Musculoskeletal:normal inspection, Trace edema Neurologic/Psych:AAOX2, grossly no focal neurological deficits Skin: normal color, warm Results & Data Results & Data Vital Signs (Past 12 Hours) Vital Signs Temp Pulse Pulse Resp BP BP Pulse Ox 02/20/24 15:46 107 H 02/20/24 15:22 36.7 C 107 H 23 103/72 91 02/20/24 14:26 100 H 16 96 02/20/24 11:21 106 H 20 90 02/20/24 11:19 107 H 20 90 02/20/24 11:15 37.9 C H 107 H 26 H 82/54 L 90 02/20/24 08:00 94 H 02/20/24 07:46 37.7 C H 97 H 22 106/75 82/53 L 100 02/20/24 07:11 94 H 18 98 O2 Del Method O2 Flow Rate FiO2 02/20/24 15:46 02/20/24 15:22 High Flow Nasal Cannula 02/20/24 14:26 Nasal Cannula 15 02/20/24 11:21 High Flow Nasal Cannula 30 50 02/20/24 11:19 High Flow Nasal Cannula 30 50 02/20/24 11:15 Free Flow/Blow-by 30 02/20/24 08:00 02/20/24 07:46 High Flow Nasal Cannula 40 02/20/24 07:11 High Flow Nasal Cannula 40 95 Laboratory Results Short CBC 02/20/24 Range/Units 06:38 WBC 4.11 L (4.8-10.8) K/ul Hgb 7.7 L (12.0-16.0) g/dl Hct 22.3 L (37.0-47.0) % Plt Count 50 L (130-400) K/uL [facility] 02/20/24 06:38 Sodium 134 L Potassium 3.7 Chloride 100 Carbon Dioxide 26 BUN 11 Creatinine 0.60 Glucose 127 H Calcium 7.4 L (1) Sepsis Acute respiratory failure type: with hypoxia Sepsis acute organ dysfunction status: with acute organ dysfunction Sepsis type: sepsis due to unspecified organism Severe sepsis shock status: unspecified (2) Pneumonia Laterality: bilateral Lung location: lower lobe of lung Pneumonia type: due to unspecified organism Qualified Code(s): J18.9 - Pneumonia, unspecified organism (8) Change in mental status Altered mental status type: disorientation Qualified Code(s): R41.0 - Disorientation, unspecified
[2024-02-20] MEDS: MIDODRINE HCL 2.5 MG TAB PO STA (20:29)
[2024-02-20] MEDS: ALBUMIN 25% 25 GM/100 ML VIAL IV ONE (21:00)
[2024-02-20] MEDS: ACETAMINOPHEN 325 MG TAB PO PRN (23:48)
[2024-02-21] MEDS: KETOROLAC TROMETHAMINE 15 MG/ML VIAL IV ONE (01:49)
[2024-02-21 06:07] LABS: BUN Creatinine Ratio 17.7 (10-20); Calcium 7.8 mg/dl (8.6-10.3); Creatinine Clr Calc Pharmacy 94.1 ml/min; Est GFR (African American) 113.6 ml/min; Magnesium 2.1 mg/dl (1.7-2.4); Phosphorus 2.5 mg/dl (2.5-4.9)
[2024-02-21 06:18] LABS: Hematocrit (blood only) 18.8 % (37.0-47.0); Hemoglobin 6.2 g/dl (12.0-16.0); Mean Corpuscular Hemoglobin 32.5 pg (25.0-34.0); Mean Corpuscular Volume 98.4 fL (80.0-100.0); Mean Platelet Volume 12.8 fL (9.4-12.4); Platelet Count 49 K/uL (130-400); RDW Coefficient of Variation 22.4 % (11.5-14.5); RDW Standard Deviation 79.3 fL (36.4-46.3); Red Blood Count 1.91 M/uL (4.20-5.40); White Blood Count 3.66 K/ul (4.8-10.8)
[2024-02-21 06:19] LABS: Anisocytosis Present; Basophils # (auto) 0.01 K/uL (0.00-0.20); Basophils % (auto) 0.3 %; Dohle Bodies 1+; Eosinophils # (auto) 0.01 K/uL (0.00-0.50); Eosinophils % (auto) 0.3 %; Immature Granulocytes # (auto) 0.07 K/uL (0.01-0.20); Immature Granulocytes % (auto) 1.9 %; Lymphocytes # (auto) 0.15 K/uL (1.20-3.40); Lymphocytes % (auto) 4.1 %; Monocytes # (auto) 0.08 K/uL (0.11-0.59); Monocytes % (auto) 2.2 %; Neutrophils # (auto) 3.34 K/uL (1.40-6.50); Neutrophils % (auto) 91.2 %; Polychromasia 1+; Tear Drop Cells 1+
--- NOTE | 2024-02-21 06:22 | Communication Note ---
Date of Service: February 21, 2024 Made aware by RN of a.m. hemoglobin of 6.2 from 7.7 yesterday. No overt bleed as per RN. AP Acute on chronic anemia History of pancytopenia Recheck H&H with type and screen at 8 AM Hold aspirin for now Defer need for blood transfusion to AM provider.
[2024-02-21] MEDS: POTASSIUM CHLORIDE PWD 20 MEQ PACK PO STA (07:03)
[2024-02-21] MEDS: MIDODRINE HCL 2.5 MG TAB PO SCH (08:43)
[2024-02-21] MEDS: POTASSIUM CHLORIDE PWD 20 MEQ PACK PO ONE (08:43)
[2024-02-21 08:45] LABS: Hematocrit (blood only) 22.2 % (37.0-47.0); Hemoglobin 7.3 g/dl (12.0-16.0)
--- NOTE | 2024-02-21 11:46 | Pulmonology Progress Note ---
Date of Service February 21, 2024 Assessment & Plan (1) Metastatic breast cancer: (2) Multifocal pneumonia: (3) Pneumonia: Laterality: bilateral Lung location: lower lobe of lung P neumonia type: due to unspecified organism Qualified Code(s): J18.9 - Pneumonia, unspecified organism (4) Acute respiratory failure with hypoxia: (5) COPD with emphysema: Plan CTA chest 02/17/2024 personally reviewed: Centrilobular emphysema appreciated bilaterally Dense consolidative process appreciated in the right lower lobe Small bilateral pleural effusions, left> right Dilated proximal esophagus with small hiatal hernia Minimal mediastinal and right hilar lymphadenopathy 2D echo 02/19/2024: EF 55 to 60%, grade 1 diastolic dysfunction, RV normal in size and function, mild concentric LVH -- Multilobar pneumonia In immunosuppressed patient Nasal MRSA negative, respiratory bio fire negative for everything Procalcitonin 14.2 Recommend swallow eval as there is high risk the patient is aspirating, keep the patient n.p.o. till swallow eval is done --Acute hypoxic respiratory failure Likely secondary to above -- COPD with emphysema Only on albuterol at home -- Metastatic breast cancer On chemotherapy Plan: In/out: +2.3 L since coming to the hospital Recommend continuing diuretics to keep the patient negative balance Continue with nebulized hypertonic saline along with flutter valve Out of the bed to chair Complete the course of antibiotics for at least 10 days Case was discussed with RN at bedside Please note the above document was generated using voice recognition software. It may contain grammatical, syntax or spelling errors.Any formal questions or concerns about the content, text or information contained within the body of this dictation should be directly addressed to the provider for clarification. Admission and Anticipated Discharge Date Admission Date: February 17, 2024 Subjective Patient seen and examined at bedside. No acute distress, no dressings overnight Patient's was in the room She was saturating 95% on 15 L nasal cannula. I went down to 10 L and she was still saturating 93-94% She looked more alert and in pleasant mood. Still complaining of cough difficult to bring it up. Denies any hemoptysis No headache or blurry vision Appetite is still poor Review of Systems 2 Review of Systems: All systems reviewed & are unremarkable except as noted in Subjective Physical Exam 2 Physical Exam: Constitutional: No acute distress HEENT: EOMI, PERRLA Respiratory system: Decreased air entry bilaterally, no wheeze, no rhonchi, positive crackles bilaterally CVS: S1-S2 positive, no murmurs or gallops Abdomen: Soft, nontender, nondistended, positive bowel sounds x4 Extremities: +2 pulses bilaterally radialis/ dorsalis pedis, no cyanosis, +1 pitting edema bilateral lower extremity Neuro: Awake alert, oriented x3 Psych: Normal mood and affect G/U: Positive Schultz Skin: no rashes, warm and dry Lymphatic: no cervical or axillary lymphadenopathy Results & Data Results & Data Vital Signs (Past 12 Hours) Vital Signs Temp Pulse Resp BP BP Pulse Ox O2 Del Method 02/21/24 10:55 101 H 18 93 Nasal Cannula 02/21/24 10:22 37.4 C 101 H 21 122/76 9 L High Flow Nasal Cannula 02/21/24 07:43 37.0 C 99 H 21 99/68 L 129/79 94 High Flow Nasal Cannula 02/21/24 07:20 High Flow Nasal Cannula 02/21/24 06:46 94 H 18 91 Nasal Cannula 02/21/24 03:31 37.0 C 88 17 108/62 92 High Flow Nasal Cannula 02/21/24 02:21 38.3 C H 02/21/24 01:33 38.8 C H O2 Flow Rate 02/21/24 10:55 15 02/21/24 10:22 15 02/21/24 07:43 15 02/21/24 07:20 13 02/21/24 06:46 15 02/21/24 03:31 15 02/21/24 02:21 02/21/24 01:33 Laboratory Results 02/21/24 08:26 02/21/24 05:33 PG Care Time/CCT Total # of Minutes Spent Total Time Spent with Patient: Total time spent is greater than 50% in coordination of care (as documented) at patient's floor/unit and/or counseling patient: Coding Level of Care Code 30508 SUB INP/OBS CARE 235MIN Diagnoses Metastatic breast cancer C50.919 Multifocal pneumonia J18.9 Pneumonia J18.9 Laterality: bilateral Lung location: lower lobe of lung Pneumonia type: due to unspecified organism Acute respiratory failure with hypoxia J96.01 COPD with emphysema J43.9
[2024-02-21] MEDS: FUROSEMIDE INJ 20 MG/2 ML VIAL IV ONE (13:21)
[2024-02-21] MEDS: IPRATROPIUM BROMIDE NEB SOLN 0.02% 0.5MG/2.5ML VIAL INH SCH (13:59)
[2024-02-21] MEDS: LEVALBUTEROL 1.25 MG/3 ML NEB NEB SCH (13:59)
--- NOTE | 2024-02-21 15:08 | Hospitalist Progress Note ---
Date of Service February 21, 2024 Assessment & Plan (1) Sepsis: Plan: Sepsis Acute metabolic encephalopathy Was brought in unresponsive, not being talking and taking any medications since 2 days Was discharged from [facility] last Friday on oral Augmentin but the patient has not been taking it --CT Head:No acute infarct or intracranial hemorrhage. 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 Moderate right and large left mastoid effusions. Reorient frequently to minimize delirium Mental status seem to improving (2) Pneumonia: Plan: Sepsis Immunocompromised state Pneumonia Acute respiratory failure with hypoxia H/O Metastatic breast cancer to bone, liver and brain --Chest CTA:No pulmonary emboli identified. Consolidation most pronounced in the right lower lobe suggestive of pneumonia versus aspiration.Trace right and small left pleural effusions. Mediastinal and hilar lymphadenopathy redemonstrated. -- BioFire negative -- Nasal MRSA Negative --Blood Cx negative to date -Aspiration precautions Empirically on vancomycin, Zosyn>> Zosyn alone Appreciate pulmonology input Aggressive pulmonary hygiene Added hypertonic saline Plan for video swallow study as able Continue diuresis to keep on dry side Supplemental oxygen requirement trending down Will need to complete 10-day course of antibiotics (3) Metastatic breast cancer: Plan: Metastasis to liver, bone and brain Has been on chemo received chemo on 04 February and next chemo was scheduled for 02/19/24 Follows with [facility] oncology Dr. Moncada Needs follow-up with oncology on discharge Appreciate palliative care input Pancytopenia Secondary to chemotherapy No obvious bleeding issues Hemoglobin drop likely dilutional due to IV fluids Continue to monitor CBC FOBT pending Hemoglobin 7.3 today Blood consent obtained Monitor H&H and transfuse as needed Hypophosphatemia Replete electrolytes as needed Monitor Mild troponin elevation Likely demand ischemia in setting of sepsis, hypoxia --ECHO: Mild concentric LVH. EF 55 to 60%. Grade 1 diastolic dysfunction. No significant valvular disease. No pericardial effusion. No wall motion abnormality. Doubt ACS Monitor H/O COPD Ongoing tobacco use as per record Only on albuterol at home Continue nebs as needed (4) Anxiety with agitation: Plan: Gets very agitated and aggressive intermittently Pain control (5) Hypotension: Plan: Received IV fluids, albumin Added midodrine Monitor BP (6) Electrolyte imbalance: Plan: Monitor and replete electrolytes as needed (7) Cancer related pain: Plan: Minimize pain medications as able (8) Change in mental status: Plan DVT Px: SCDs Re: Significant thrombocytopenia CODE STATUS DNR/DNI Admission and Anticipated Discharge Date Admission Date: February 17, 2024 Subjective Patient is seen and examined at bedside Less supplemental oxygen requirement today Discussed with pulmonology today Reports having some difficulty with expectoration Denies any significant dyspnea today Family at bedside Denies any chest pain, nausea, vomiting, abdominal pain Review of Systems Review of Systems: All systems reviewed & are unremarkable except as noted in Subjective Physical Exam Physical Exam: Physical Exam: Vitals signs as noted above General Appearance: Thin, frail, chronic ill appearing, no apparent distress Head: normocephalic, Atraumatic Eyes: normal inspection, EOMI Neck: supple, Trachea midline Respiratory/Chest: Decreased breath sounds, +crackles, No accessory muscle use Cardiovascular: S1, S2, No murmur, +Tachycardia Abdomen/GI:Soft, Non tender, Bowel sounds present Extremities/Musculoskeletal:normal inspection, Trace edema Neurologic/Psych:AAOX2, grossly no focal neurological deficits Skin: normal color, warm Results & Data Results & Data Vital Signs (Past 12 Hours) Vital Signs Temp Pulse Resp BP BP Pulse Ox O2 Del Method 02/21/24 13:59 111 H 20 91 Nasal Cannula 02/21/24 10:55 101 H 18 93 Nasal Cannula 02/21/24 10:22 37.4 C 101 H 21 122/76 9 L High Flow Nasal Cannula 02/21/24 07:43 37.0 C 99 H 21 99/68 L 129/79 94 High Flow Nasal Cannula 02/21/24 07:20 High Flow Nasal Cannula 02/21/24 06:46 94 H 18 91 Nasal Cannula 02/21/24 03:31 37.0 C 88 17 108/62 92 High Flow Nasal Cannula O2 Flow Rate 02/21/24 13:59 11 02/21/24 10:55 15 02/21/24 10:22 15 02/21/24 07:43 15 02/21/24 07:20 13 02/21/24 06:46 15 02/21/24 03:31 15 Laboratory Results Short CBC 02/21/24 02/21/24 Range/Units 05:33 08:26 WBC 3.66 L (4.8-10.8) K/ul Hgb 6.2 L* 7.3 L (12.0-16.0) g/dl Hct 18.8 L* 22.2 L (37.0-47.0) % Plt Count 49 L (130-400) K/uL BMP 02/21/24 05:33 Sodium 134 L Potassium 3.0 L Chloride 100 Carbon Dioxide 28 BUN 11 Creatinine 0.62 Glucose 102 H Calcium 7.8 L (1) Sepsis Acute respiratory failure type: with hypoxia Sepsis acute organ dysfunction status: with acute organ dysfunction Sepsis type: sepsis due to unspecified organism Severe sepsis shock status: unspecified (2) Pneumonia Laterality: bilateral Lung location: lower lobe of lung Pneumonia type: due to unspecified organism Qualified Code(s): J18.9 - Pneumonia, unspecified organism (8) Change in mental status Altered mental status type: disorientation Qualified Code(s): R41.0 - Disorientation, unspecified
[2024-02-21] MEDS: POTASSIUM CHLORIDE CRTAB 20 MEQ TABCR PO ONE (15:38)
[2024-02-21] MEDS: KETOROLAC TROMETHAMINE 10 MG TABLET PO STA (18:44)
[2024-02-21 21:26] LABS: Hematocrit (blood only) 22.4 % (37.0-47.0); Hemoglobin 7.4 g/dl (12.0-16.0)
[2024-02-21] MEDS: ONDANSETRON INJ 2 MG/ML 2 ML VIAL IV PRN (21:53)
[2024-02-21] MEDS: ALBUMIN 25% 25 GM/100 ML VIAL IV ONE (21:54)
[2024-02-21] MEDS: MIDODRINE HCL 2.5 MG TAB PO STA (21:59)
[2024-02-22 07:54] LABS: BUN Creatinine Ratio 23.7 (10-20); Calcium 8.2 mg/dl (8.6-10.3); Creatinine Clr Calc Pharmacy 88.2 ml/min; Est GFR (African American) 115.5 ml/min; Est GFR (Non-African American) 99.6 ml/min; Potassium 3.4 mmol/L (3.5-5.1)
--- NOTE | 2024-02-22 08:40 | XRay Report ---
XR chest 1V portable HISTORY: Respiratory distress. COMPARISON: Chest 02/20/2024. FINDINGS: No pneumothorax. The heart remains enlarged. Mixed interstitial and alveolar airspace opaci ties are similar to the prior study. A right jugular Port-A-Cath terminates in the distal SVC. There are trace bilateral pleural effusions. IMPRESSION: 1. No significant change compared to the prior study. Mixed interstitial and alveolar airspace opacit y suggests a multifocal pneumonia. 2. Cardiomegaly with mild congestive change and trace bilateral pleural effusions. ACT 112: Negative or not required by law. Electronically signed by: Luigi Alonzo M.D. 02/22/2024 8:39 AM
[2024-02-22] MEDS: MIDODRINE HCL 2.5 MG TAB PO SCH (08:42)
[2024-02-22] MEDS ORDERED: POTASSIUM CHLORIDE CRTAB 20 MEQ TABCR PO SCH (09:00)
[2024-02-22 09:23] LABS: Hematocrit (blood only) 20.7 % (37.0-47.0); Hemoglobin 6.8 g/dl (12.0-16.0)
[2024-02-22] MEDS ORDERED: SODIUM CHLORIDE 0.9% 250 ML IV PRN (09:24)
[2024-02-22] MEDS: POTASSIUM CHLORIDE / WTR 10 MEQ/100 ML PLCT IV SCH (09:51)
--- NOTE | 2024-02-22 10:00 | Pulmonology Progress Note ---
Date of Service February 22, 2024 Assessment & Plan (1) Metastatic breast cancer: (2) Multifocal pneumonia: (3) Pneumonia: Laterality: bilateral Lung location: lower lobe of lung P neumonia type: due to unspecified organism Qualified Code(s): J18.9 - Pneumonia, unspecified organism (4) Acute respiratory failure with hypoxia: (5) COPD with emphysema: Plan CTA chest 02/17/2024 personally reviewed: Centrilobular emphysema appreciated bilaterally Dense consolidative process appreciated in the right lower lobe Small bilateral pleural effusions, left> right Dilated proximal esophagus with small hiatal hernia Minimal mediastinal and right hilar lymphadenopathy 2D echo 02/19/2024: EF 55 to 60%, grade 1 diastolic dysfunction, RV normal in size and function, mild concentric LVH -- Multilobar pneumonia In immunosuppressed patient Nasal MRSA negative, respiratory bio fire negative for everything Procalcitonin 14.2 --Acute hypoxic respiratory failure Likely secondary to above -- COPD with emphysema Only on albuterol at home -- Metastatic breast cancer On chemotherapy Plan: In/out: +491 mL since coming to the hospital Recommend continuing diuretics to keep the patient negative balance Continue with nebulized hypertonic saline along with flutter valve Out of the bed to chair Complete the course of antibiotics for at least 10 days Case was discussed with RN at bedside No further recommendation from pulmonary perspective, will sign off Please call directly with any questions Please note the above document was generated using voice recognition software. It may contain grammatical, syntax or spelling errors.Any formal questions or concerns about the content, text or information contained within the body of this dictation should be directly addressed to the provider for clarification. Admission and Anticipated Discharge Date Admission Date: February 17, 2024 Subjective Patient seen and examined at bedside. No acute distress, no adverse events overnight She was saturating 94-95% on 10 L nasal cannula, I went down to 8 L. She has been bringing up phlegm, no hemoptysis Appetite is fair. No nausea vomiting Denies any chest pain Review of Systems 2 Review of Systems: All systems reviewed & are unremarkable except as noted in Subjective Physical Exam 2 Physical Exam: Constitutional: No acute distress HEENT: EOMI, PERRLA Respiratory system: Decreased air entry bilaterally, no wheeze, no rhonchi, positive crackles bilaterally CVS: S1-S2 positive, no murmurs or gallops Abdomen: Soft, nontender, nondistended, positive bowel sounds x4 Extremities: +2 pulses bilaterally radialis/ dorsalis pedis, no cyanosis, +1 pitting edema bilateral lower extremity Neuro: Awake alert, oriented x3 Psych: Normal mood and affect G/U: Positive Schultz Results & Data Results & Data Vital Signs (Past 12 Hours) Vital Signs Temp Pulse Pulse Resp BP Pulse Ox O2 Del Method 02/22/24 07:57 37.8 C H 109 H 21 132/74 94 High Flow Nasal Cannula 02/22/24 06:51 113 H 22 96 Nasal Cannula 02/22/24 03:49 36.9 C 97 H 18 116/59 L 87 L High Flow Nasal Cannula 02/21/24 23:35 36.5 C 82 16 99/61 L 99 High Flow Nasal Cannula 02/21/24 23:00 85 O2 Flow Rate 02/22/24 07:57 13 02/22/24 06:51 15 02/22/24 03:49 15 02/21/24 23:35 15 02/21/24 23:00 Laboratory Results 02/22/24 06:23 02/22/24 06:23 PG Care Time/CCT Total # of Minutes Spent Total Time Spent with Patient: Total time spent is greater than 50% in coordination of care (as documented) at patient's floor/unit and/or counseling patient: Coding Level of Care Code 82602 SUB INP/OBS CARE 2/35MIN Diagnoses Metastatic breast cancer C50.919 Multifocal pneumonia J18.9 Pneumonia J18.9 Laterality: bilateral Lung location: lower lobe of lung Pneumonia type: due to unspecified organism Acute respiratory failure with hypoxia J96.01 COPD with emphysema J43.9
[2024-02-22] MEDS: POTASSIUM CHLORIDE PWD 20 MEQ PACK PO SCH (11:37)
--- NOTE | 2024-02-22 14:43 | Hospitalist Progress Note ---
Date of Service February 22, 2024 Assessment & Plan (1) Sepsis: Plan: Sepsis Acute metabolic encephalopathy Was brought in unresponsive, not being talking and taking any medications since 2 days Was discharged from [place] last Friday on oral Augmentin but the patient has not been taking it --CT Head:No acute infarct or intracranial hemorrhage. 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 Moderate right and large left mastoid effusions. Reorient frequently to minimize delirium Mental status back to baseline (2) Pneumonia: Plan: Sepsis Immunocompromised state Pneumonia Acute respiratory failure with hypoxia H/O Metastatic breast cancer to bone, liver and brain --Chest CTA:No pulmonary emboli identified. Consolidation most pronounced in the right lower lobe suggestive of pneumonia versus aspiration.Trace right and small left pleural effusions. Mediastinal and hilar lymphadenopathy redemonstrated. -- BioFire negative -- Nasal MRSA Negative --Blood Cx negative to date -Aspiration precautions Empirically on vancomycin, Zosyn>> Zosyn alone Appreciate pulmonology input Aggressive pulmonary hygiene Added hypertonic saline Plan for video swallow study as able Continue diuresis to keep on dry side Supplemental oxygen requirement trending down Will need to complete 10-day course of antibiotics Slowly improving (3) Metastatic breast cancer: Plan: Metastasis to liver, bone and brain Has been on chemo received chemo on 04 February and next chemo was scheduled for 02/19/24 Follows with [facility] oncology Dr. Moncada Needs follow-up with oncology on discharge Appreciate palliative care input Pancytopenia Secondary to chemotherapy No obvious bleeding issues FOBT negative Hemoglobin 6.8 today Blood consent obtained Monitor H&H Will transfuse 1 unit PRBC today Hypophosphatemia Replete electrolytes as needed Monitor Mild troponin elevation Likely demand ischemia in setting of sepsis, hypoxia --ECHO: Mild concentric LVH. EF 55 to 60%. Grade 1 diastolic dysfunction. No significant valvular disease. No pericardial effusion. No wall motion abno rmality. Doubt ACS Monitor H/O COPD Ongoing tobacco use as per record Only on albuterol at home Continue nebs as needed (4) Anxiety with agitation: Plan: Gets very agitated and aggressive intermittently Pain control (5) Hypotension: Plan: Received IV fluids, albumin Added midodrine Monitor BP (6) Electrolyte imbalance: Plan: Monitor and replete electrolytes as needed (7) Cancer related pain: Plan: Minimize pain medications as able (8) Change in mental status: Plan DVT Px: SCDs Re: Significant thrombocytopenia CODE STATUS DNR/DNI Admission and Anticipated Discharge Date Admission Date: February 17, 2024 Subjective Patient is seen and examined at bedside Patient is able to expectorate better today Appetite slowly improving per patient Less dyspnea, cough Denies any bleeding issues Family at bedside Denies any chest pain, nausea, vomiting, abdominal pain Review of Systems Review of Systems: All systems reviewed & are unremarkable except as noted in Subjective Physical Exam Physical Exam: Physical Exam: Vitals signs as noted above General Appearance: Thin, frail, chronic ill appearing, no apparent distress Head: normocephalic, Atraumatic Eyes: normal inspection, EOMI Neck: supple, Trachea midline Respiratory/Chest: Decreased breath sounds, +crackles, No accessory muscle use Cardiovascular: S1, S2, No murmur, +Tachycardia Abdomen/GI:Soft, Non tender, Bowel sounds present Extremities/Musculoskeletal:normal inspection, Trace edema Neurologic/Psych:AAOX2, grossly no focal neurological deficits Skin: normal color, warm Results & Data Results & Data Vital Signs (Past 12 Hours) Vital Signs Temp Pulse Pulse Resp BP BP Pulse Ox 02/22/24 13:16 36.9 C 90 20 118/82 95 02/22/24 12:34 36.8 C 96 H 22 119/77 95 02/22/24 11:41 36.9 C 02/22/24 11:34 96 H 21 113/72 92 02/22/24 11:04 37.2 C 100 H 20 110/77 95 02/22/24 10:49 37.1 C 96 H 20 112/71 96 02/22/24 10:28 36.6 C 99 H 22 111/74 98 02/22/24 10:25 36.6 C 99 H 20 111/74 98 02/22/24 10:22 99 H 18 96 02/22/24 08:00 02/22/24 07:57 37.8 C H 109 H 21 132/74 94 02/22/24 07:00 102 H 02/22/24 06:51 113 H 22 96 02/22/24 03:49 36.9 C 97 H 18 116/59 L 87 L O2 Del Method O2 Flow Rate 02/22/24 13:16 13 02/22/24 12:34 02/22/24 11:41 02/22/24 11:34 8 02/22/24 11:04 10 02/22/24 10:49 10 02/22/24 10:28 10 02/22/24 10:25 High Flow Nasal Cannula 10 02/22/24 10:22 Nasal Cannula 12 02/22/24 08:00 High Flow Nasal Cannula 10 02/22/24 07:57 High Flow Nasal Cannula 13 02/22/24 07:00 02/22/24 06:51 Nasal Cannula 15 02/22/24 03:49 High Flow Nasal Cannula 15 Laboratory Results Short CBC 02/21/24 02/22/24 Range/Units 20:36 06:23 Hgb 7.4 L 6.8 L* (12.0-16.0) g/dl Hct 22.4 L 20.7 L* (37.0-47.0) % BMP 02/22/24 06:23 Sodium 136 Potassium 3.4 L Chloride 98 Carbon Dioxide 29 BUN 14 Creatinine 0.59 L Glucose 96 Calcium 8.2 L (1) Sepsis Acute respiratory failure type: with hypoxia Sepsis acute organ dysfunction status: with acute organ dysfunction Sepsis type: sepsis due to unspecified organism Severe sepsis shock status: unspecified (2) Pneumonia Laterality: bilateral Lung location: lower lobe of lung Pneumonia type: due to unspecified organism Qualified Code(s): J18.9 - Pneumonia, unspecified organism (8) Change in mental status Altered mental status type: disorientation Qualified Code(s): R41.0 - Disorientation, unspecified
[2024-02-22] MEDS: FUROSEMIDE INJ 20 MG/2 ML VIAL IV ONE (17:05)
[2024-02-22 20:07] LABS: Hematocrit (blood only) 26.9 % (37.0-47.0)
[2024-02-22] MEDS: HEPARIN 100 UNIT/ML 5ML FLUSH FLUSH STA (20:13)
[2024-02-22] MEDS: SODIUM CHLORIDE 0.65% NA SOLN 45 ML (OCEAN) PRN (23:31)
[2024-02-23 06:52] LABS: Hematocrit (blood only) 28.9 % (37.0-47.0); Hemoglobin 9.4 g/dl (12.0-16.0); Mean Corpuscular Hemoglobin 31.4 pg (25.0-34.0); Mean Corpuscular Hgb Conc 32.5 g/dL (32.0-36.0); Mean Corpuscular Volume 96.7 fL (80.0-100.0); Platelet Count 71 K/uL (130-400); RDW Coefficient of Variation 21.7 % (11.5-14.5); RDW Standard Deviation 73.7 fL (36.4-46.3); Red Blood Count 2.99 M/uL (4.20-5.40); White Blood Count 3.87 K/ul (4.8-10.8)
[2024-02-23 07:12] LABS: Calcium 8.6 mg/dl (8.6-10.3); Est GFR (African American) 120.4 ml/min; Est GFR (Non-African American) 103.9 ml/min; Potassium 3.3 mmol/L (3.5-5.1)
--- NOTE | 2024-02-23 12:17 | Fluoroscopy Report ---
MODIFIED BARIUM SWALLOW CLINICAL HISTORY: assess for aspiration COMPARISON STUDY: None. FLUOROSCOPY TIME: 1.45 minutes. Ka, r: 8.66 mGy. TECHNIQUE: A modified barium swallow was performed in conjunction with Speech Pathology. The patient ingested varying consistencies of barium containing material. Video fluoroscopy was performed. FINDINGS: A small amount of tracheal aspiration was noted with the initial trial of thin liquids by s caroline. No aspiration was identified on the second swallow of thin liquids by spoon. There is no aspira tion with swallows of thin liquids by cup. There was no aspiration with nectar thick liquids. Trachea l aspiration with pudding consistency was initially noted. The bolus was redirected. There was no asp iration with cracker consistency. IMPRESSION: 1. Tracheal aspiration with the initial swallow of thin liquids and pudding consistencies, as describ ed above. No aspiration with the remainder of the consistencies. 2. Full recommendations by Speech pathology to follow. ACT 112: Negative or not required by law. Electronically signed by: Thierry Tian M.D. 02/23/2024 12:16 PM
--- NOTE | 2024-02-23 12:41 | Electrocardiogram Report ---
Test Reason : Blood Pressure : / mmHG Vent. Rate : 100 BPM Atrial Rate : 100 BPM P-R Int : 168 ms QRS Dur : 088 ms QT Int : 344 ms P-R-T Axes : 057 074 055 degrees QTc Int : 443 ms Normal sinus rhythm Possible Left atrial enlargement RSR' or QR pattern in V1 suggests right ventricular conduction delay Abnormal ECG No previous ECGs available Confirmed by Kamron Farmer ([id number]) on 02/23/2024 12:40:51 PM Referred By: REFERRED SELF Confirmed By:Kamron Farmer
[2024-02-23] MEDS: FUROSEMIDE INJ 20 MG/2 ML VIAL IV ONE (13:48)
--- NOTE | 2024-02-23 15:36 | Palliative Care Progress Note ---
Date of Service February 23, 2024 Assessment & Plan (1) Dyspnea and respiratory abnormalities: Plan: Improving with improved utilization of airway clearance techniques. The flutter device in particular has helped loosen her congestion she is coughing more. 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 Overall trend of improvement since last week. She is hopeful that with today's swallow study showing no overt signs of aspiration and no need to change her diet, she will be able to be discharged from the hospital and return home and then follow-up with oncology to resume her chemotherapy. Her goal at this time is clear to be able to resume chemotherapy and continue her cancer directed therapy. She again reiterates she does not want to go to skilled rehab or fdc. Plan As above. No overt indication for daily high acuity inpatient palliative medicine follow- up. For now we will sign off and remain available peripherally/for reengagement as needed. Thank you for allowing us to participate in the ongoing care of this patient. Please page with any additional concerns. Farhat Meza DNP Director, Palliative Medicine Admission and Anticipated Discharge Date Admission Date: February 17, 2024 Subjective Mrs. Jones is sitting out of bed with her at her side. She has been able to use the flutter device more consistently through the weekend and reports that it has made her cough more, chest congestion feels more lucid. She reports that her swallow study this morning was unrevealing and that no dietary changes are needed. Overall, she admits to feeling better than she did on Friday. Othe rwise she offers no new complaints or concerns. She denies any acute pain, shortness of breath, chest pain, nausea vomiting or diarrhea. Review of Systems Review of Systems: All systems reviewed & are unremarkable except as noted in Subjective Physical Exam Constitutional: + cachectic, + frail appearing and coope rative Eyes: PERRL, conjunctivae normal, anicteric sclerae ENMT: external ear and nose normal, oropharynx normal Ears: + hearing impairment hoarse voice Neck: trachea midline, no thyromegaly Respiratory: + cough, able to speak in complete sente nces and symmetric chest movement Auscultation: + diminished lung sounds, + crackles, + rhonchi and + wheezes Cardiovascular: RRR, no murmur, no edema Rate/Rhythm: + tachycardic Gastrointestinal (Abdomen): Inspection/Auscultation: normal bowel sounds and + scaphoid Percussion/Palpation: abdomen soft; abdomen nontender, no guarding and abdomen not rigid Musculoskeletal: gen weakness Skin: + turgor decreased, + dry skin and + pal yolie Neurologic: AAOx3 Psychiatric: Eye Contact: + fair eye contact Affect: + irritable affect Thought Process: + tangential thought process Thought Content: + preoccupation Estimated Intelligence: consistent with education level Insight: good insight Results & Data Vital Signs (Past 12 Hours) Vital Signs Temp Pulse Pulse Resp BP BP Pulse Ox 02/23/24 14:46 103 H 02/23/24 10:55 37.2 C 100 H 20 94/62 L 121/81 93 02/23/24 09:30 02/23/24 08:50 100 H 24 100 02/23/24 07:43 37.3 C 104 H 19 85/53 L 128/91 94 02/23/24 07:00 102 H 02/23/24 03:38 36.6 C 88 16 110/63 94 O2 Del Method O2 Flow Rate 02/23/24 14:46 02/23/24 10:55 Nasal Cannula 6 02/23/24 09:30 High Flow Nasal Cannula 6 02/23/24 08:50 Nasal Cannula 8 02/23/24 07:43 Nasal Cannula 8 02/23/24 07:00 02/23/24 03:38 High Flow Nasal Cannula 13 Laboratory Results Abnormal lab results 02/22/24 02/23/24 Range/Units 19:45 06:14 WBC 3.87 L (4.8-10.8) K/ul RBC 2.99 L (4.20-5.40) M/uL Hgb 9.0 L 9.4 L (12.0-16.0) g/dl Hct 26.9 L 28.9 L (37.0-47.0) % RDW Std Deviation 73.7 H (36.4-46.3) fL RDW Coeff of Carlos 21.7 H (11.5-14.5) % Plt Count 71 L (130-400) K/uL Potassium 3.3 L (3.5-5.1) mmol/L Creatinine 0.52 L (0.6-1.2) mg/dl BUN/Creatinine Ratio 25.0 H (10-20) Procalcitonin 0.91 H (0-0.5) ng/ml Diagnostic Findings Chest CTA 02/17/24 12:12 CT angio chest PE protocol CT DOSE: 976.67 mGy.cm HISTORY: 58 years-old Female with PE, fever, breast CA, hypoxia, ams. Acute fever with hypoxia and history of breast cancer TECHNIQUE: Multiple CTA images of the chest were obtained after the intravenous administration of 112 ml Optiray. Coronal and sagittal MIPS were obtained from the axial data set and were submitted for review. All measurements were obtained according to NASCET criteria. A dose lowering technique was utilized adhering to the principles of ALARA. COMPARISON: Chest CT from outside hospital 09/16/2023 FINDINGS: CTA: Mild cardiomegaly with trace pericardial effusion. Unremarkable thoracic aorta. No pulmonary emboli identified. CT CHEST: No thyroid nodule identified. Mediastinal and hilar lymphadenopathy redemonstrated which has mildly improved compared to 09/16/2023. Trace right and small left pleural effusions. Emphysema with bronchitis. No pneumothorax. Intralobular septal thickening. Dense consolidation is most pronounced in the right lower lobe and to lesser extent within the left lower lobe dependently. Circumferential wall thickening throughout the mid to distal esophagus which is debris-filled. Posterior right hepatic lobe lesion measuring 1.7 cm, previously 2.2 cm. Left-sided mastectomy. 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 IMPRESSION: 1. No pulmonary emboli identified. 2. Progressive skeletal metastasis. 3. Consolidation most pronounced in the right lower lobe suggestive of pneumonia versus aspiration. 4. The esophagus is debris filled and demonstrates circumferential mid to distal wall thickening. 5. Mildly decreased size of the right hepatic lobe lesion. 6. Trace right and small left pleural effusions. 7. Mediastinal and hilar lymphadenopathy redemonstrated. ACT 112: Negative or not required by law. The above report was generated using voice recognition software. It may contain grammatical, syntax or spelling errors. Electronically signed by: Gustavo Ferguson M.D. 02/17/2024 2:[address] 02/17/24 12:[address] DOSE: HISTORY: Altered mental status, hx breast mets TECHNIQUE: Multiaxial CT images of the head were performed without the use of intravenous contrast. Automated exposure control was utilized for this study. A dose lowering technique was utilized adhering to the principles of ALARA. Comparison: Outside hospital brain MRI 09/30/2023. Findings: The paranasal sinuses are clear. Moderate right and large left mastoid effusions. A 9 mm sclerotic focus within the left skull base on image 7. This favors an osteoblastic metastasis. The calvarium and skull base are intact. The ventricles and sulci are within normal limits. There is no mass, hematoma, midline shift, or acute infarct. There is a punctate calcification within the right cerebellar hemisphere. Impression: 1. No acute infarct or intracranial hemorrhage. 2. 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 3. Moderate right and large left mastoid effusions. ACT 112: Negative or not required by law. Electronically signed by: Luigi Alonzo M.D. 02/17/2024 1:17 PM Chest X-Ray 02/22/24 07:00 XR chest 1V portable HISTORY: Respiratory distress. COMPARISON: Chest 02/20/2024. FINDINGS: No pneumothorax. The heart remains enlarged. Mixed interstitial and alveolar airspace opacities are similar to the prior study. A right jugular Port-A-Cath terminates in the distal SVC. There are trace bilateral pleural effusions. IMPRESSION: 1. No significant change compared to the prior study. Mixed interstitial and alveolar airspace opacity suggests a multifocal pneumonia. 2. Cardiomegaly with mild congestive change and trace bilateral pleural effu sions. ACT 112: Negative or not required by law. Electronically signed by: Luigi Alonzo M.D. 02/22/2024 8:39 AM Videofluoroscopic Swallow 02/23/24 10:00 MODIFIED BARIUM SWALLOW CLINICAL HISTORY: assess for aspiration COMPARISON STUDY: None. FLUOROSCOPY TIME: 1.45 minutes. Ka, r: 8.66 mGy. TECHNIQUE: A modified barium swallow was performed in conjunction with Speech Pathology. The patient ingested varying consistencies of barium containing material. Video fluoroscopy was performed. FINDINGS: A small amount of tracheal aspiration was noted with the initial trial of thin liquids by spoon. No aspiration was identified on the second swallow of thin liquids by spoon. There is no aspiration with swallows of thin liquids by cup. There was no aspiration with nectar thick liquids. Tracheal aspiration with pudding consistency was initially noted. The bolus was redirected. There was no aspiration with cracker consistency. IMPRESSION: 1. Tracheal aspiration with the initial swallow of thin liquids and pudding consistencies, as described above. No aspiration with the remainder of the consistencies. 2. Full recommendations by Speech pathology to follow. ACT 112: Negative or not required by law. Electronically signed by: Thierry Tian M.D. 02/23/2024 12:16 PM PG Care Time/CCT Total # of Minutes Spent Total Time Spent with Patient: Total time spent is greater than 50% in coordination of care (as documented) at patient's floor/unit and/or counseling patient: I spent 55 minutes overall addressing this case: 10 min in medical data review/discussion with referring provider(s) and/or preparation for the visit 15 min in direct interaction with the patient/exam 20 min in Advance Care Planning/Goals of Care discussions as detailed above in note (must be >16min) 5 min in subsequent review and synthesis of assessment and plan 5 min communicating with other providers regarding the patient's case: Primary team. Advanced Care Planning 22459 Advanced Care Planning 30 Min [place] [address] SUB INP/OBS CARE 2/35MIN Patient Type Established History Comprehensive Exam Comprehensive Medical Decision Making Moderate Complexity Diagnoses Dyspnea and respiratory abnormalities R06.00; R06.89 Depression due to physical illness F06.31 Weakness generalized R53.1 Palliative care by specialist Z51.5 Advanced care planning/counseling discussion Z71.89 Additional Codes Advanced Care Planning - 05412 Advanced Care Planning 30 Min: 16812 Advanced Care Planning 30 Min ([id number])
--- NOTE | 2024-02-23 17:19 | Hospitalist Progress Note ---
Date of Service February 23, 2024 Assessment & Plan (1) Sepsis: Plan: Sepsis Acute metabolic encephalopathy Was brought in unresponsive, not being talking and taking any medications since 2 days Was discharged from [facility] last Friday on oral Augmentin but the patient has not been taking it --CT Head:No acute infarct or intracranial hemorrhage. 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 Moderate right and large left mastoid effusions. Reorient frequently to minimize delirium Mental status back to baseline (2) Pneumonia: Plan: Sepsis Immunocompromised state Pneumonia Acute respiratory failure with hypoxia H/O Metastatic breast cancer to bone, liver and brain --Chest CTA:No pulmonary emboli identified. Consolidation most pronounced in the right lower lobe suggestive of pneumonia versus aspiration.Trace right and small left pleural effusions. Mediastinal and hilar lymphadenopathy redemonstrated. -- BioFire negative -- Nasal MRSA Negative --Blood Cx negative to date -Aspiration precautions Empirically on vancomycin, Zosyn>> Zosyn alone Appreciate pulmonology input pulmonary hygiene Added hypertonic saline Plan for video swallow study as able Continue diuresis to keep on dry side Will need to complete 10-day course of antibiotics Supplemental oxygen requirement--6 L today Clinically improving Continue current management (3) Metastatic breast cancer: Plan: Metastasis to liver, bone and brain Has been on chemo received chemo on 04 February and next chemo was scheduled for 02/19/24 [address]s [address] [facility] oncology Dr. Moncada Needs follow-up with oncology on discharge Appreciate palliative care input Pancytopenia Secondary to chemotherapy No obvious bleeding issues FOBT negative S/P 1 unit PRBCs Hemoglobin 6.8 today Blood consent obtained Monitor H&H Hb 9.4 today Hypophosphatemia Replete electrolytes as needed Monitor Mild troponin elevation Likely demand ischemia in setting of sepsis, hypoxia --ECHO: Mild concentric LVH. EF 55 to 60%. Grade 1 diastolic dysfunction. No significant valvular disease. No pericardial effusion. No wall motion abnormality. Doubt ACS Monitor H/O COPD Ongoing tobacco use as per record Only on albuterol at home Continue nebs as needed (4) Anxiety with agitation: Plan: Gets very agitated and aggressive intermittently Pain control (5) Hypotension: Plan: Received IV fluids, albumin Added midodrine Monitor BP (6) Electrolyte imbalance: Plan: Monitor and replete electrolytes as needed (7) Cancer related pain: Plan: Minimize pain medications as able (8) Change in mental status: Plan DVT Px: SCDs Re: Significant thrombocytopenia CODE STATUS DNR/DNI Admission and Anticipated Discharge Date Admission Date: February 17, 2024 Subjective Patient is seen and examined at bedside Had video swallow study earlier today No new complaints Dyspnea slowly improving Family at bedside Requiring less supplemental oxygen today Denies any chest pain, nausea, vomiting, abdominal pain Review of Systems Review of Systems: All systems reviewed & are unremarkable except as noted in Subjective Physical Exam Physical Exam: Physical Exam: Vitals signs as noted above General Appearance: Thin, frail, chronic ill appearing, no apparent distress Head: normocephalic, Atraumatic Eyes: normal inspection, EOMI Neck: supple, Trachea midline Respiratory/Chest: Decreased breath sounds, CTA, No accessory muscle use Cardiovascular: S1, S2, No murmur, +Tachycardia Abdomen/GI:Soft, Non tender, Bowel sounds present Extremities/Musculoskeletal:normal inspection, Trace edema Neurologic/Psych:AAOX2, grossly no focal neurological deficits Skin: normal color, warm Results & Data Results & Data Vital Signs (Past 12 Hours) Vital Signs Temp Pulse Pulse Resp BP BP Pulse Ox 02/23/24 16:09 37.2 C 93 H 20 97/67 L 107/77 100 02/23/24 14:46 103 H 02/23/24 10:55 37.2 C 100 H 20 94/62 L 121/81 93 02/23/24 09:30 02/23/24 08:50 100 H 24 100 02/23/24 07:43 37.3 C 104 H 19 85/53 L 128/91 94 02/23/24 07:00 102 H O2 Del Method O2 Flow Rate 02/23/24 16:09 Nasal Cannula 6 02/23/24 14:46 02/23/24 10:55 Nasal Cannula 6 02/23/24 09:30 High Flow Nasal Cannula 6 02/23/24 08:50 Nasal Cannula 8 02/23/24 07:43 Nasal Cannula 8 02/23/24 07:00 Laboratory Results Short CBC 02/22/24 02/23/24 Range/Units 19:45 06:14 WBC 3.87 L (4.8-10.8) K/ul Hgb 9.0 L 9.4 L (12.0-16.0) g/dl Hct 26.9 L 28.9 L (37.0-47.0) % Plt Count 71 L (130-400) K/uL BMP 02/23/24 06:14 Sodium 136 Potassium 3.3 L Chloride 98 Carbon Dioxide 30 BUN 13 Creatinine 0.52 L Glucose 96 Calcium 8.6 (1) Sepsis Acute respiratory failure type: with hypoxia Sepsis acute organ dysfunction status: with acute organ dysfunction Sepsis type: sepsis due to unspecified organism Severe sepsis shock status: unspecified (2) Pneumonia Laterality: bilateral Lung location: lower lobe of lung Pneumonia type: due to unspecified organism Qualified Code(s): J18.9 - Pneumonia, unspecified organism (8) Change in mental status Altered mental status type: disorientation Qualified Code(s): R41.0 - Disorientation, unspecified
[2024-02-24] MEDS: MoRPHine SULFATE 2 MG/ML CARP IV PRN (00:23)
[2024-02-24 06:58] LABS: Hematocrit (blood only) 27.1 % (37.0-47.0); Hemoglobin 8.8 g/dl (12.0-16.0)
[2024-02-24 07:30] LABS: BUN Creatinine Ratio 23.5 (10-20); Calcium 8.4 mg/dl (8.6-10.3); Creatinine Clr Calc Pharmacy 102.6 ml/min; Est GFR (African American) 121.1 ml/min; Est GFR (Non-African American) 104.5 ml/min; Potassium 3.6 mmol/L (3.5-5.1)
--- NOTE | 2024-02-24 08:34 | XRay Report ---
SINGLE VIEW CHEST CLINICAL HISTORY: Pneumonia FINDINGS: 2 AP, portable, upright chest radiographs are compared to study dated 02/22/2024 and correla daren with chest CT dated 02/17/2024. A right internal jugular central venous infusion port is unchanged in position. The heart is enlarged noting atherosclerotic calcification of the thoracic aorta. There is pulmonary vascular congestion. Emphysema and chronic interstitial thickening is similar to previou s. Multifocal airspace opacities are again seen throughout both lungs. This is similar to previous. T here are layering pleural effusions with dependent consolidation. No pneumothorax is seen. The skelet al structures are osteopenic. The bony thorax is grossly intact. Surgical clips are again seen in the left breast. Cholecystectomy clips are noted in the right upper quadrant. There is enteric contrast within the stomach. IMPRESSION: 1. Cardiomegaly and emphysema with pulmonary vascular congestion. 2. Multifocal bilateral airspace opacities are similar to previous. This could represent pulmonary ed sofie and/or multifocal pneumonia. This is similar to previous. Clinical correlation required and radio graphic follow-up to resolution is recommended. 3. Layering pleural effusions with dense bibasilar consolidation, left greater than right. ACT 112: Negative or not required by law. Electronically signed by: Brady Maria M.D. 02/24/2024 8:33 AM
[2024-02-24] MEDS ORDERED: OXYMETAZOLINE 0.05% 30 ML BTL PRN (12:39)
[2024-02-24] MEDS: FUROSEMIDE INJ 20 MG/2 ML VIAL IV ONE (13:08)
[2024-02-24 15:18] LABS: Hematocrit (blood only) 27.2 % (37.0-47.0); Hemoglobin 8.8 g/dl (12.0-16.0)
--- NOTE | 2024-02-24 15:41 | XRay Report ---
XR chest 1V portable CLINICAL HISTORY: Pleuritic pain COMPARISON STUDY: Chest CT February 17, 2024. Chest radiograph February 24, 2024 at 6:38 AM. FINDINGS: Right internal jugular [id number] is in place. Multiple skeletal lesions are better depi cted on chest CT of February 17, 2024. There is no pneumothorax. Small bilateral pleural effusions are pre sent. Interlobular septal thickening is noted. Multifocal bilateral airspace opacities are similar to prior exam. Cardiomediastinal silhouette is stable. IMPRESSION: 1. Moderate interstitial pulmonary edema with small bilateral pleural effusions. 2. No significant change in superimposed airspace opacities which could reflect alveolar pulmonary ed sofie or pneumonia. ACT 112: Negative or not required by law. Electronically signed by: Thierry Tian M.D. 02/24/2024 3:40 PM
--- NOTE | 2024-02-24 17:05 | Hospitalist Progress Note ---
Date of Service February 24, 2024 Assessment & Plan (1) Sepsis: Plan: Sepsis Acute metabolic encephalopathy Was brought in unresponsive, not being talking and taking any medications since 2 days Was discharged from [facility] last Friday on oral Augmentin but the patient has not been taking it --CT Head:No acute infarct or intracranial hemorrhage. 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 Moderate right and large left mastoid effusions. Reorient frequently to minimize delirium Mental status back to baseline (2) Pneumonia: Plan: Sepsis Immunocompromised state Pneumonia Acute respiratory failure with hypoxia H/O Metastatic breast cancer to bone, liver and brain --Chest CTA:No pulmonary emboli identified. Consolidation most pronounced in the right lower lobe suggestive of pneumonia versus aspiration.Trace right and small left pleural effusions. Mediastinal and hilar lymphadenopathy redemonstrated. -- BioFire negative -- Nasal MRSA Negative --Blood Cx negative to date -Aspiration precautions Empirically on vancomycin, Zosyn>> Zosyn alone Appreciate pulmonology input pulmonary hygiene Added hypertonic saline Video swallow study showed no aspiration issues Continue diuresis to keep on dry side Will need to complete 10-day course of antibiotics Supplemental oxygen requirement--7 L today Repeat chest x-ray showed no significant change Given 1 dose of IV Lasix today Will likely need rehab once medically stable for discharge (3) Metastatic breast cancer: Plan: Metastasis to liver, bone and brain Has been on chemo received chemo on 04 February and next chemo was scheduled for 02/19/24 Follows with [facility] oncology Dr. Moncada Needs follow-up with oncology on discharge Appreciate palliative care input Pancytopenia Secondary to chemotherapy No obvious bleeding issues FOBT negative S/P 1 unit PRBCs Monitor H&H Hb 8.8 today Monitor CBC Minimal epistaxis Afrin as needed Monitor CBC Humidification of supplemental oxygen Hypophosphatemia Replete electrolytes as needed Monitor Mild troponin elevation Likely demand ischemia in setting of sepsis, hypoxia --ECHO: Mild concentric LVH. EF 55 to 60%. Grade 1 diastolic dysfunction. No significant valvular disease. No pericardial effusion. No wall motion abnormality. Doubt ACS Monitor H/O COPD Ongoing tobacco use as per record Only on albuterol at home Continue nebs as needed (4) Anxiety with agitation: Plan: Gets very agitated and aggressive intermittently Pain control (5) Hypotension: Plan: Received IV fluids, albumin Added midodrine Monitor BP (6) Electrolyte imbalance: Plan: Monitor and replete electrolytes as needed (7) Cancer related pain: Plan: Minimize pain medications as able (8) Change in mental status: Plan DVT Px: SCDs Re: Significant thrombocytopenia, epistaxis CODE STATUS DNR/DNI Admission and Anticipated Discharge Date Admission Date: February 17, 2024 Subjective Patient is seen and examined at bedside Reported some pleuritic pain on the right side tomorrow Also had minimal epistaxis Still requiring 7 to 9 L supplemental oxygen to maintain saturations Denies any significant cough, dyspnea today Also denies any chest pain, nausea, vomiting, abdominal pain Review of Systems Review of Systems: All systems reviewed & are unremarkable except as noted in Subjective Physical Exam Physical Exam: Physical Exam: Vitals signs as noted above General Appearance: Thin, frail, chronic ill appearing, no apparent distress Head: normocephalic, Atraumatic Eyes: normal inspection, EOMI Neck: supple, Trachea midline Respiratory/Chest: Decreased breath sounds, scattered crackles, No accessory muscle use Cardiovascular: S1, S2, No murmur Abdomen/GI:Soft, Non tender, Bowel sounds present Extremities/Musculoskeletal:normal inspection, Trace edema Neurologic/Psych:AAOX2, grossly no focal neurological deficits Skin: normal color, warm Results & Data Results & Data Vital Signs (Past 12 Hours) Vital Signs Temp Pulse Pulse Resp BP BP Pulse Ox 02/24/24 15:00 93 H 02/24/24 14:51 36.8 C 96 H 21 103/74 92 02/24/24 11:36 37.3 C 104 H 19 107/67 98 02/24/24 08:09 37.5 C 99 H 19 105/71 94 02/24/24 07:48 02/24/24 07:27 100 H 19 99 02/24/24 07:00 103 H O2 Del Method O2 Flow Rate 02/24/24 15:00 02/24/24 14:51 High Flow Nasal Cannula 7 02/24/24 11:36 High Flow Nasal Cannula 8.0 02/24/24 08:09 High Flow Nasal Cannula 8.0 02/24/24 07:48 High Flow Nasal Cannula 8 02/24/24 07:27 Nasal Cannula 8 02/24/24 07:00 Laboratory Results Short CBC 02/24/24 02/24/24 Range/Units 05:59 14:39 Hgb 8.8 L 8.8 L (12.0-16.0) g/dl Hct 27.1 L 27.2 L (37.0-47.0) % BMP 02/24/24 05:59 Sodium 135 L Potassium 3.6 Chloride 98 Carbon Dioxide 28 BUN 12 Creatinine 0.51 L Glucose 101 H Calcium 8.4 L (1) Sepsis Acute respiratory failure type: with hypoxia Sepsis acute organ dysfunction status: with acute organ dysfunction Sepsis type: sepsis due to unspecified organism Severe sepsis shock status: unspecified (2) Pneumonia Laterality: bilateral Lung location: lower lobe of lung Pneumonia type: due to unspecified organism Qualified Code(s): J18.9 - Pneumonia, unspecified organism (8) Change in mental status Altered mental status type: disorientation Qualified Code(s): R41.0 - Disorientation, unspecified
[2024-02-25 06:47] LABS: Hemoglobin 8.6 g/dl (12.0-16.0); Mean Corpuscular Hemoglobin 31.2 pg (25.0-34.0); Mean Corpuscular Hgb Conc 33.1 g/dL (32.0-36.0); Mean Corpuscular Volume 94.2 fL (80.0-100.0); Mean Platelet Volume 11.5 fL (9.4-12.4); Platelet Count 83 K/uL (130-400); RDW Coefficient of Variation 20.1 % (11.5-14.5); RDW Standard Deviation 68.6 fL (36.4-46.3); Red Blood Count 2.76 M/uL (4.20-5.40); White Blood Count 3.47 K/ul (4.8-10.8)
[2024-02-25 07:01] LABS: BUN Creatinine Ratio 28.3 (10-20); Calcium 8.4 mg/dl (8.6-10.3); Creatinine Clr Calc Pharmacy 109.2 ml/min; Est GFR (African American) 125.3 ml/min; Est GFR (Non-African American) 108.1 ml/min; Potassium 3.4 mmol/L (3.5-5.1)
[2024-02-25] MEDS: AZITHROMYCIN 250 MG TAB PO SCH (08:32)
--- NOTE | 2024-02-25 11:07 | Electrocardiogram Report ---
Test Reason : Blood Pressure : / mmHG Vent. Rate : 099 BPM Atrial Rate : 099 BPM P-R Int : 152 ms QRS Dur : 090 ms QT Int : 346 ms P-R-T Axes : 055 078 069 degrees QTc Int : 444 ms Normal sinus rhythm Normal ECG When compared with ECG of 22-FEB-2024 17:09, No significant change was found Confirmed by Kamron Farmer ([id number]) on 02/25/2024 11:06:54 AM Referred By: REFERRED SELF Confirmed By:Kamron Farmer
[2024-02-25] MEDS: OXYMETAZOLINE 0.05% 30 ML BTL STA (11:19)
--- NOTE | 2024-02-25 13:58 | Hospitalist Progress Note ---
Date of Service February 25, 2024 Assessment & Plan (1) Sepsis: Plan: Sepsis Acute metabolic encephalopathy Was brought in unresponsive, not being talking and taking any medications since 2 days Was discharged from [place] last Friday on oral Augmentin but the patient has not been taking it --CT Head:No acute infarct or intracranial hemorrhage. 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 Moderate right and large left mastoid effusions. Reorient frequently to minimize delirium Mental status back to baseline (2) Pneumonia: Plan: Sepsis Immunocompromised state Pneumonia Acute respiratory failure with hypoxia H/O Metastatic breast cancer to bone, liver and brain Chest CTA on admission:No pulmonary emboli identified. Consolidation most pron ounced in the right lower lobe suggestive of pneumonia versus aspiration.Trace right and small left pleural effusions. Mediastinal and hilar lymphadenopathy redemonstrated. BioFire negative Nasal MRSA Negative Last chest x-ray from February 23 personally reviewed; multifocal bilateral airspace opacities. No significant change from prior chest x-rayod Cx negative to date Empirically on vancomycin, Zosyn>> Zosyn And azithromycin. Pulmonary hygiene Continue hypertonic saline Video swallow study showed no aspiration issues Continue diuresis to keep on dry side Will need to complete 10-day course of antibiotics wean supplemental oxygen Will likely need rehab once medically stable for discharge. PT OT ordered (3) Metastatic breast cancer: Plan: Metastasis to liver, bone and brain Has been on chemo received chemo on 04 February and next chemo was scheduled for 02/19/24 Follows with [facility] oncology Dr. Moncada Needs follow-up with oncology on discharge Appreciate palliative care input Pancytopenia Secondary to chemotherapy No obvious bleeding issues FOBT negative S/P 1 unit PRBCs Monitor H&H Hb 8.8 today Monitor CBC Minimal epistaxis Afrin as needed Monitor CBC Humidification of supplemental oxygen Mild troponin elevation Likely demand ischemia in setting of sepsis, hypoxia --ECHO: Mild concentric LVH. EF 55 to 60%. Grade 1 diastolic dysfunction. No significant valvular disease. No pericardial effusion. No wall motion abnormality. Doubt ACS Monitor H/O COPD Ongoing tobacco use as per record Only on albuterol at home Continue nebs as needed (4) Anxiety with agitation: Plan: Pain control (5) Hypotension: Plan: Received IV fluids, albumin Added midodrine Monitor BP (6) Electrolyte imbalance: Plan: Monitor and replete electrolytes as needed (7) Cancer related pain: Plan: Minimize pain medications as able (8) Change in mental status: Plan CODE STATUS DNR/DNI DVT prophylaxisSCDs; patient is thrombocytopenic. DispositionPT OT ordered. might need rehab Time spent evaluating patient, direct bedside care, chart review, placing orders, interpretation of diagnostic studies, discussion with consultants, patient, and family members, as well as other required patient management activities is 50 minutes Please note the above document was generated using voice recognition software. It may contain grammatical, syntax or spelling errors. Any formal questions or concerns about the content, text or information contained within the body of this dictation should be directly addressed to the provider for clarification Admission and Anticipated Discharge Date Admission Date: February 17, 2024 Subjective Patient seen and examined at bedside. She is sitting up on the chair She reports that her shortness of breath has improved. Review of Systems Review of Systems: All systems reviewed & are unremarkable except as noted in Subjective Physical Exam Physical Exam: Constitutional: WD/WN, vitals as above, NAD, sitting up in bed, pleasant, conversing easily Respiratory: Decreased breath sound at bases Cardiovascular: RRR, no murmur, no edema Vessels: no JVD or carotid bruit Chest: normal inspection of chest Abdomen: normal bowel sounds, soft, nontender, no hepatosplenomegaly Musculoskeletal: no cyanosis or clubbing, extremities motor strength 5/5 Skin: no rashes, warm and dry normal turgor Neurologic: PERRL, EOMI, accommodation nl, no face palsy, no dysarthria CN's II- XI intact bilaterally and moves all extremities Psychiatric: A+Ox3, euthymic affect Results & Data Results & Data Vital Signs (Past 12 Hours) Vital Signs Temp Pulse Pulse Resp BP BP Pulse Ox 02/25/24 11:38 36.7 C 109 H 19 83/62 L 97 02/25/24 09:59 02/25/24 08:00 37.2 C 112 H 21 86/63 L 141/100 H 97 02/25/24 07:00 108 H 02/25/24 02:39 37.5 C 98 H 16 90/63 L 93 O2 Del Method O2 Flow Rate 02/25/24 11:38 High Flow Nasal Cannula 6.0 02/25/24 09:59 Nasal Cannula 4 02/25/24 08:00 High Flow Nasal Cannula 6.0 02/25/24 07:00 02/25/24 02:39 Nasal Cannula (1) Sepsis Acute respiratory failure type: with hypoxia Sepsis acute organ dysfunction status: with acute organ dysfunction Sepsis type: sepsis due to unspecified organism Severe sepsis shock status: unspecified (2) Pneumonia Laterality: bilateral Lung location: lower lobe of lung Pneumonia type: due to unspecified organism Qualified Code(s): J18.9 - Pneumonia, unspecified organism (8) Change in mental status Altered mental status type: disorientation Qualified Code(s): R41.0 - Disorientation, unspecified
[2024-02-26 07:11] LABS: Basophils # (auto) 0.01 K/uL (0.00-0.20); Basophils % (auto) 0.4 %; Eosinophils # (auto) 0.01 K/uL (0.00-0.50); Eosinophils % (auto) 0.4 %; Hematocrit (blood only) 24.2 % (37.0-47.0); Hemoglobin 7.9 g/dl (12.0-16.0); Immature Granulocytes # (auto) 0.12 K/uL (0.01-0.20); Immature Granulocytes % (auto) 4.3 %; Lymphocytes # (auto) 0.21 K/uL (1.20-3.40); Lymphocytes % (auto) 7.6 %; Mean Corpuscular Hgb Conc 32.6 g/dL (32.0-36.0); Mean Corpuscular Volume 94.9 fL (80.0-100.0); Mean Platelet Volume 11.5 fL (9.4-12.4); Monocytes # (auto) 0.31 K/uL (0.11-0.59); Monocytes % (auto) 11.2 %; Neutrophils # (auto) 2.11 K/uL (1.40-6.50); Neutrophils % (auto) 76.1 %; Platelet Count 87 K/uL (130-400); RDW Coefficient of Variation 19.3 % (11.5-14.5); RDW Standard Deviation 66.8 fL (36.4-46.3); Red Blood Count 2.55 M/uL (4.20-5.40); White Blood Count 2.77 K/ul (4.8-10.8)
[2024-02-26 07:31] LABS: Est GFR (African American) 127.2 ml/min; Est GFR (Non-African American) 109.7 ml/min; Potassium 3.4 mmol/L (3.5-5.1)
[2024-02-26 07:32] LABS: BUN Creatinine Ratio 27.3 (10-20); Calcium 8.1 mg/dl (8.6-10.3)
[2024-02-26 07:36] LABS: Anisocytosis Present
--- NOTE | 2024-02-26 14:35 | Hospitalist Progress Note ---
Date of Service February 26, 2024 Assessment & Plan (1) Sepsis: Plan: Sepsis Acute metabolic encephalopathy Was brought in unresponsive, not being talking and taking any medications since 2 days Was discharged from [place] last Friday on oral Augmentin but the patient has not been taking it --CT Head:No acute infarct or intracranial hemorrhage. 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 Moderate right and large left mastoid effusions. Reorient frequently to minimize delirium Mental status back to baseline (2) Pneumonia: Plan: Sepsis Immunocompromised state Pneumonia Acute respiratory failure with hypoxia H/O Metastatic breast cancer to bone, liver and brain Chest CTA on admission:No pulmonary emboli identified. Consolidation most pron ounced in the right lower lobe suggestive of pneumonia versus aspiration.Trace right and small left pleural effusions. Mediastinal and hilar lymphadenopathy redemonstrated. BioFire negative Nasal MRSA Negative Last chest x-ray from February 23 personally reviewed; multifocal bilateral airspace opacities. No significant change from prior chest x-rayod Cx negative to date Empirically on vancomycin, Zosyn>> Zosyn And azithromycin. Pulmonary hygiene Continue hypertonic saline Video swallow study showed no aspiration issues Continue diuresis to keep on dry side Will need to complete 10-day course of antibiotics wean supplemental oxygen PT OT eval (3) Metastatic breast cancer: Plan: Metastasis to liver, bone and brain Has been on chemo received chemo on 04 February and next chemo was scheduled for 02/19/24 Follows with [facility] oncology Dr. Moncada Needs follow-up with oncology on discharge Pancytopenia Secondary to chemotherapy No obvious bleeding issues FOBT negative S/P 1 unit PRBCs Monitor H&H Minimal epistaxis Afrin as needed Monitor CBC Humidification of supplemental oxygen Mild troponin elevation Likely demand ischemia in setting of sepsis, hypoxia --ECHO: Mild concentric LVH. EF 55 to 60%. Grade 1 diastolic dysfunction. No significant valvular disease. No pericardial effusion. No wall motion abnormality. Doubt ACS Monitor H/O COPD Ongoing tobacco use as per record Only on albuterol at home Continue nebs as needed (4) Anxiety with agitation: Plan: Pain control (5) Hypotension: Plan: Received IV fluids, albumin Added midodrine Monitor BP (6) Electrolyte imbalance: Plan: Monitor and replete electrolytes as needed (7) Cancer related pain: Plan: Minimize pain medications as able (8) Change in mental status: Plan CODE STATUS DNR/DNI DVT prophylaxisSCDs; patient is thrombocytopenic. DispositionPT OT ordered. Rehab vs home depending on recommendation and patient's preference. Time spent evaluating patient, direct bedside care, chart review, placing orders, interpretation of diagnostic studies, discussion with consultants, patient, and family members, as well as other required patient management activities is 50 minutes Please note the above document was generated using voice recognition software. It may contain grammatical, syntax or spelling errors. Any formal questions or concerns about the content, text or information contained within the body of this dictation should be directly addressed to the provider for clarification Admission and Anticipated Discharge Date Admission Date: February 17, 2024 Subjective Patient reports that she is feeling better compared to yesterday Oxygen requirement is improving Epistaxis is also improving Review of Systems Review of Systems: All systems reviewed & are unremarkable except as noted in Subjective Physical Exam Physical Exam: Constitutional: WD/WN, vitals as above, NAD, sitting up in bed, pleasant, conversing easily Respiratory: Decreased breath sound at bases Cardiovascular: RRR, no murmur, no edema Vessels: no JVD or carotid bruit Chest: normal inspection of chest Abdomen: normal bowel sounds, soft, nontender, no hepatosplenomegaly Musculoskeletal: no cyanosis or clubbing, extremities motor strength 5/5 Skin: no rashes, warm and dry normal turgor Neurologic: PERRL, EOMI, accommodation nl, no face palsy, no dysarthria CN's II- XI intact bilaterally and moves all extremities Psychiatric: A+Ox3, euthymic affect Results & Data Results & Data Vital Signs (Past 12 Hours) Vital Signs Temp Pulse Pulse Resp BP Pulse Ox O2 Del Method 02/26/24 14:26 101 H 02/26/24 10:56 36.6 C 97 H 19 95/61 L 96 Oxymask 02/26/24 09:00 Oxymask 02/26/24 09:00 104 H 22 96 Oxymask 02/26/24 07:50 36.7 C 102 H 22 89/61 L 95 Oxymask 02/26/24 07:10 93 H 02/26/24 03:00 36.7 C 88 16 89/67 L 94 Oxymask O2 Flow Rate 02/26/24 14:26 02/26/24 10:56 02/26/24 09:00 4 02/26/24 09:00 4 02/26/24 07:50 6 02/26/24 07:10 02/26/24 03:00 (1) Sepsis Acute respiratory failure type: with hypoxia Sepsis acute organ dysfunction status: with acute organ dysfunction Sepsis type: sepsis due to unspecified organism Severe sepsis shock status: unspecified (2) Pneumonia Laterality: bilateral Lung location: lower lobe of lung Pneumonia type: due to unspecified organism Qualified Code(s): J18.9 - Pneumonia, unspecified organism (8) Change in mental status Altered mental status type: disorientation Qualified Code(s): R41.0 - Disorientation, unspecified
== END 2024-02-27 15:51 | disposition home health service (06) | DRG 871 ==
LOC: ED 11:39 → SUATTDRO 14:17 → 2E 14:17

== ENCOUNTER 2025-04-13 19:01 | Inpatient (IN) ==
[2025-04-13 19:52] LABS: Hematocrit (blood only) 29.4 % (37.0-47.0); Hemoglobin 10.5 g/dl (12.0-16.0); Mean Corpuscular Hemoglobin 36.1 pg (25.0-34.0); Mean Corpuscular Volume 101.0 fL (80.0-100.0); Platelet Count 69 K/uL (130-400); RDW Standard Deviation 51.5 fL (36.4-46.3); Red Blood Count 2.91 M/uL (4.20-5.40); White Blood Count 3.00 K/ul (4.8-10.8)
[2025-04-13] MEDS: SODIUM CHLORIDE 0.9% 1,000 ML IV ONE (20:01)
[2025-04-13 20:03] LABS: Alanine Aminotransferase 19.0 U/L (7-52); Alkaline Phosphatase 100.0 U/L (34-104); Anion Gap 12.0 (3-11); Bilirubin,Total 1.1 mg/dl (0.2-1.0); Blood Urea Nitrogen 9.0 mg/dl (6-23); Calcium 8.8 mg/dl (8.6-10.3); Carbon Dioxide 25.0 mmol/L (21-32); Chloride 90.0 mmol/L (98-107); Creatinine Clr Calc Pharmacy 59.9 ml/min; Glucose 130.0 mg/dl (70-99(Fasting)); Magnesium 1.9 mg/dl (1.7-2.4); Potassium 3.1 mmol/L (3.5-5.1); Sodium 127.0 mmol/L (136-145); Total Protein 7.4 gm/dl (6.0-8.3)
[2025-04-13 20:12] LABS: Base Excess VBG 0.8 mEq/L; HCO3 VBG 25 mmol/L; Oxygen Saturation VBG < 60.0 %; PCO2 VBG 39 mmHg (38-50); PO2 VBG 30 mmHg; pH VBG 7.42 (7.36-7.41)
[2025-04-13 20:14] LABS: Dohle Bodies 2+; Immature Granulocytes # (auto) 0.04 K/uL (0.01-0.20); Immature Granulocytes % (auto) 1.3 %; Polychromasia 2+; Toxic Granulation 3+
--- NOTE | 2025-04-13 20:16 | XRay Report ---
Exam(s): XR CXR 1 VIEW EXAM: XR Chest, 1 View CLINICAL HISTORY: Reason for exam: Sepsis. TECHNIQUE: Frontal view of the chest. COMPARISON: None FINDINGS: Hardware: Right-sided Port-A-Cath terminates near the cavoatrial junction. Clips projected over the left lower chest. Lungs/pleura: Hyperinflated lungs. Lung nodules bilaterally. No focal consolidation. No pleural effusion or pneumothorax. Heart/mediastinum: Normal. No cardiomegaly. Soft tissues: Unremarkable. Bones: No acute fracture. Upper abdomen: Normal. IMPRESSION: 1. Lung nodules bilaterally, concerning for osseous metastases. 2. No focal consolidation. Electronically signed by: Ary Khoury M.D. 04/13/25 20:15 PM
[2025-04-13 20:19] LABS: INR 1.0 (0.9-1.1); Partial Thromboplastin Time 30 Seconds (21-31); Prothrombin Time 11.0 Seconds (9.0-12.0)
[2025-04-13] MEDS: GADOBUTROL 65ML VIAL IV ONE (21:30)
[2025-04-13] MEDS ORDERED: VANCOMYCIN CONSULT ACTIVE PRN (21:43)
[2025-04-13] MEDS: PIPERACILLIN/TAZOBACTAM 4.5 GM/120 ML BAG IV ONE (22:13)
--- NOTE | 2025-04-13 22:20 | Magnetic Resonance Report ---
Exam(s): MRI L SPINE W/WO Contrast IV Amt: 6mL Gadavist given existing IV EXAM: MR Lumbar Spine Without and With Intravenous Contrast CLINICAL HISTORY: Reason for exam: fever cancer ro cord compression/abscess. TECHNIQUE: Magnetic resonance images of the lumbar spine without and with intravenous contrast in multiple planes. CONTRAST: Patient received 6mL Gadavist given existing IV of IV contrast COMPARISON: MRI 07/31/2024 FINDINGS: Vertebrae: Extensive metastatic disease within the lumbar spine and visualized portions of the sacrum and posterior pelvis. Appearance is similar to the prior. Unchanged superior endplate height loss at L3. No acute fracture. No spondylolisthesis. Spinal cord: Unremarkable. Normal signal. No abnormal enhancement. Soft tissues: Unremarkable. DISCS/SPINAL CANAL/NEURAL FORAMINA: L1-L2: Mild diffuse disc bulge. No canal or foraminal stenosis. L2-L3: Mild diffuse disc bulge and facet arthropathy. Mild canal stenosis. No foraminal stenosis. L3-4: Trace disc bulge. Facet arthropathy. No canal stenosis. Mild foraminal stenosis on the left. None on the right. L4-5: Trace disc bulge. No spinal canal or foraminal stenosis. L5-S1: Disc height loss and facet arthropathy. No canal stenosis. Mild bilateral foraminal stenosis. IMPRESSION: Redemonstrated of extensive metastatic disease. No high-grade canal stenosis or infection. Electronically signed by: Howie Cramer MD 04/13/25 22:20 PM
--- NOTE | 2025-04-13 22:23 | Magnetic Resonance Report ---
Exam(s): MRI T SPINE W/WO Contrast IV Amt: 6mL Gadavist given existing IV EXAM: MR Thoracic Spine Without and With Intravenous Contrast CLINICAL HISTORY: Reason for exam: fever cancer ro cord compression/abscess. TECHNIQUE: Magnetic resonance images of the thoracic spine without and with intravenous contrast in multiple planes. CONTRAST: Patient received 6mL Gadavist given existing IV of IV contrast COMPARISON: No relevant prior studies available. FINDINGS: Extensive metastatic disease throughout the thoracic spine. No acute fracture. No spondylolisthesis. No spinal canal or foraminal stenosis. Normal cord signal. IMPRESSION: Extensive metastatic disease. No acute abnormality or significant stenosis. Electronically signed by: Howie Cramer MD 04/13/25 22:22 PM
[2025-04-13] MEDS: MoRPHine SULFATE 4 MG/ML 1 ML CARP\\VIAL IV STA (22:44)
[2025-04-13] MEDS: VANCOMYCIN HCL 1,250 MG in SODIUM CHLORIDE 0.9% 500 ML IV ONE (22:45)
--- NOTE | 2025-04-13 23:02 | Emergency Department Note ---
History of Present Illness General Stated Complaint: BACK PAIN Time Seen by Provider: 04/13/25 19:32 History of Present Illness Provider Complaint: back pain Onset (ago): day(s) 3 Duration: constant and progressively worsening Location: lumbar spine and thoracic spine Quality: + sharp and + stabbing Radiation: none Severity: severe Current Pain Intensity: 9 Relieved By: + none Exacerbated By: + none Context: + other (History of breast cancer with metastasis to lungs and bones); no trauma or no IV drug use Associated symptoms: + weakness, + urinary incontinence and + fever (Tmax 103); no abdominal pain, no dysuria or no hematuria Home Medications Medication Instructions Recorded Confirmed Type multivitamin 1 tab PO QAM 06/21/20 04/13/25 History cholecalciferol (vitamin D3) 25 25 mcg PO QAM 11/26/22 04/13/25 History mcg (1,000 unit) tablet (Vitamin D3) magnesium 250 mg tablet 500 mg PO QAM 11/26/22 04/13/25 History vitamin E 400 unit tablet 45 mg PO QAM 11/26/22 03/29/25 History vitamin B complex 1 tab PO DAILY 12/09/22 03/29/25 History albuterol sulfate 90 mcg/actuation 2 puff inhalation Q4 PRN Shortness 02/17/24 04/13/25 History aerosol inhaler Of Breath lidocaine-prilocaine 2.5 %-2.5 % 1 applic topical UD PRN Other 02/17/24 04/13/25 History topical cream ondansetron HCl 8 mg tablet 8 mg PO Q8 PRN Nausea 02/17/24 04/13/25 History docusate sodium 100 mg capsule 100 mg PO DAILY PRN Constipation 03/29/25 04/13/25 History fluticasone propionate 50 2 spray intranasal QAM 03/29/25 04/13/25 History mcg/actuation nasal spray,suspension (Allergy Relief (fluticasone)) gabapentin 100 mg capsule 400 mg PO AMHS 03/29/25 04/13/25 History pantoprazole 40 mg tablet,delayed 40 mg PO QAM 03/29/25 04/13/25 History release primidone 50 mg tablet 25 mg PO HS 03/29/25 04/13/25 History prochlorperazine maleate 10 mg 10 mg PO Q6H PRN Nausea 03/29/25 04/13/25 History tablet dexamethasone 2 mg tablet 1 mg PO QAM 04/13/25 04/13/25 History ferrous sulfate 325 mg (65 mg 325 mg PO 3XWK 04/13/25 04/13/25 History iron) tablet (iron) midodrine 10 mg tablet 10 mg PO TID 04/13/25 04/13/25 History oxycodone 5 mg tablet 10 mg PO Q6 PRN PAIN,SEVERE 04/13/25 04/13/25 History Allergies Allergy/AdvReac Type Severity Reaction Status Date / Time No Known Allergies Allergy Verified 03/29/25 08:35 Past Med/Surg History Problem List (Updated 04/13/25 @ 23:02 by Isaac Sagastume MD) Back pain (Acute) UTI (urinary tract infection) (Acute) Acute hyponatremia (Acute) Malignant neoplasm of breast metastatic to bone (Chronic) Palliative care by specialist Advanced care planning/counseling discussion Depression due to physical illness Weakness generalized Dyspnea and respiratory abnormalities COPD with emphysema Acute respiratory failure with hypoxia Multifocal pneumonia Change in mental status (Acute) Cancer related pain Electrolyte imbalance Hypotension Anxiety with agitation Pneumonia (Acute) Sepsis (Acute) Metastatic breast cancer (Chronic) 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) Encounter for pre-operative examination Malignant neoplasm of upper-outer quadrant of left breast in female, estrogen receptor positive (Chronic 11/02/19) Medical History Limb alert care status left arm Gallstones Brain aneurysm 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 History of colonoscopy Hx of left mastectomy (05/25/20) with [place] Lymph node identification History of reconstruction of left breast (05/25/20) History of breast biopsy (11/02/19) left breast Family History Grandfather (Maternal) , great grandmother; diagnosed @ 80 yr old Breast cancer Father Family history of diabetes mellitus Mother Family history of diabetes mellitus Brother Family history of diabetes mellitus Social History Smoking Status: Current every day smoker Tobacco Type: Cigarettes Age Started Using Tobacco: 14; Age Quit Using Tobacco: 54; packs per day: 1; Cigarettes Per Day: 5-7; Second Hand Exposure: Yes ( smokes); Do You Dip or Chew Tobacco: No; Hx Alcohol Use: No Hx Substance Use: No Preferred Language: Tristanian Communication Ability: Effective Visual Impairment: No Limitations Hearing Ability: Normal Electric 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 Required: No Beliefs That Will Affect Care: None marital status: Current Living Situation: Spouse current occupational status: employed current occupation: [employer] unemployment from COVID to Breast Cancer How many Children do You have: 2 Feels Safe at Home: Yes Childhood Exposure to Second-Hand Smoke: Yes caffeine: Yes (tea 2 cups/day) during the past year weight has: remained stable Dental Care, Regularly: No Physical Activity Frequency: Does not Exercise Physical Activity Frequency Comment: her work required a lot of activity but is off now Seatbelt Use: always Sunscreen Use: No Assistive Devices: Bedside Commode Physical Exam Vital Signs Vital Signs - 24 hr 04/13/25 19:19 04/13/25 19:21 04/13/25 19:30 Temperature 37.0 C Temperature Source Oral Pulse Rate 112 H 117 H 115 H Pulse Rate from SpO2 Sensor Pulse Rhythm Regular Pulse Strength Normal Respiratory Rate 20 20 20 Respiratory Effort / Characteristics Non-Labored Spontaneous Respiratory Depth Normal Respiratory Pattern Regular Blood Pressure 103/77 103/77 99/78 L Blood Pressure Mean 85 86 90 Blood Pressure Position Lying Pulse Oximetry 98 98 98 Oxygen Delivery Method Room Air Sepsis Recent Fever Within 48 Hours No Sepsis New/Unexplained Change in Mental Status N/A Sepsis Action Taken by Nursing No Action Required 04/13/25 19:39 04/13/25 19:42 04/13/25 19:45 Temperature Temperature Source Pulse Rate 115 H 113 H 110 H Pulse Rate from SpO2 Sensor 110 H Pulse Rhythm Regular Pulse Strength Respiratory Rate 20 19 Respiratory Effort / Characteristics Respiratory Depth Respiratory Pattern Blood Pressure 95/75 L Blood Pressure Mean 81 Blood Pressure Position Pulse Oximetry 98 95 Oxygen Delivery Method Room Air Sepsis Recent Fever Within 48 Hours Sepsis New/Unexplained Change in Mental Status Sepsis Action Taken by Nursing 04/13/25 20:00 Temperature Temperature Source Pulse Rate 110 H Pulse Rate from SpO2 Sensor Pulse Rhythm Pulse Strength Respiratory Rate 18 Respiratory Effort / Characteristics Respiratory Depth Respiratory Pattern Blood Pressure 103/70 Blood Pressure Mean 94 Blood Pressure Position Pulse Oximetry 96 Oxygen Delivery Method Sepsis Recent Fever Within 48 Hours Sepsis New/Unexplained Change in Mental Status Sepsis Action Taken by Nursing Physical Exam HENT: Exam performed. -Head: Normocephalic and atraumatic. EYES: Conjunctivae and EOM are normal. Pupils are equal, round, and reactive to light. Right eye exhibits no discharge. Left eye exhibits no discharge. No scleral icterus. NECK: Normal range of motion. Neck supple. No JVD present. CV: Normal rate, regular rhythm, normal heart sounds and intact distal pulses. There is no peripheral edema. Palpable radial pulses bue. PULM/CHEST: Effort normal and breath sounds normal. No respiratory distress. No stridor. She has no wheezes. She has no rales. ABD: The abdomen is soft. There is no tenderness. There is no rebound, no guarding MUSC/SKEL: Pain on palpation of the thoracic and lumbar spine. NEURO: Motor and sensation grossly intact. Course Course 193: The patient was evaluated in room B7. A complete history and physical exam was performed Cardiac monitoring: An order was placed for continuous cardiac monitoring. The monitor shows a rate of 110 with sinus rhythm interpreted by mo Sepsis protocols initiated given hypotension reported fever. MRIs will be ordered for the patient to rule out cord compression. 2225: Vital signs stable. Labs are significant for hyponatremia of 127. No focal neurological deficits no seizures. No need for hypertonic saline. Labs show an elevated procalcitonin. Mild leukopenia of 3 platelet count of 69. Urine dip is concerning for infection. Patient treated with Zosyn and Vanco. MRIs show no evidence of cord compression or epidural abscess. There is extensive metastatic disease. Patient will be admitted to the hospitalist team. Administered Medications Vancomycin HCl 1,250 mg/ (Sodium Chloride) 525 mls @ 200 mls/hr IV NOW ONE Stop: 04/14/25 00:20 Last Admin: 04/13/25 22:45 Dose: 200 mls/hr Documented By: NAW Discontinued Medications Fentanyl Citrate (Fentanyl Citrate Pf 100 Mcg/2 Ml Vial) 50 mcg IV NOW STA Stop: 04/13/25 19:56 Last Admin: 04/13/25 20:01 Dose: 50 mcg Documented By: MARLO Gadobutrol (Gadobutrol 65ml Vial) 6 ml IV ONCE ONE Stop: 04/13/25 21:30 Last Admin: 04/13/25 21:30 Dose: 6 ml Documented By: BRIAN Sodium Chloride (Nss) 1,000 mls @ 999 mls/hr IV .Q1H1M ONE Stop: 04/13/25 20:55 Last Admin: 04/13/25 20:01 Dose: 999 mls/hr Documented By: MARLO Piperacillin Sod/Tazobactam Sod (Zosyn) 4.5 gm in 120 mls @ 240 mls/hr IV NOW ONE Stop: 04/13/25 22:12 Last Infusion: 04/13/25 22:44 Dose: Infused Documented By: Admin: 04/13/25 22:13 Dose: 240 mls/hr Documented By: MARLO Morphine Sulfate (Morphine Sulfate 4 Mg/Ml 1 Ml Carp\Vial) 4 mg IV NOW STA Stop: 04/13/25 22:25 Last Admin: 04/13/25 22:44 Dose: 4 mg Documented By: MARLO Medical Decision Making Laboratory Data Attestation: I reviewed the patient's lab results. 04/13/25 19:25 04/13/25 19:25 Lab Results 04/13/25 04/13/25 04/13/25 Range/Units 19:25 19:47 22:30 WBC 3.00 L (4.8-10.8) K/ul RBC 2.91 L (4.20-5.40) M/uL Hgb 10.5 L (12.0-16.0) g/dl Hct 29.4 L (37.0-47.0) % MCV 101.0 H (80.0-100.0) fL MCH 36.1 H (25.0-34.0) pg MCHC 35.7 (32.0-36.0) g/dL RDW Std Deviation 51.5 H (36.4-46.3) fL RDW Coeff of Carlos 13.7 (11.5-14.5) % Plt Count 69 L (130-400) K/uL MPV 11.9 (9.4-12.4) fL Immature Gran % (Auto) 1.3 % Neut % (Auto) 78.4 % Lymph % (Auto) 5.7 % [place] % (Auto) 12.3 % Eos % (Auto) 1.0 % Baso % (Auto) 1.3 % Neut # (Auto) 2.35 (1.40-6.50) K/uL Lymph # (Auto) 0.17 L (1.20-3.40) K/uL [place] # (Auto) 0.37 (0.11-0.59) K/uL Eos # (Auto) 0.03 (0.00-0.50) K/uL Baso # (Auto) 0.04 (0.00-0.20) K/uL Immature Gran # (Auto) 0.04 (0.01-0.20) K/uL Toxic Granulation 3+ Dohle Bodies 2+ Polychromasia 2+ PT 11.0 (9.0-12.0) Seconds INR 1.0 (0.9-1.1) APTT 30 (21-31) Seconds PTT Ratio 1.1 VBG pH 7.42 H (7.36-7.41) VBG pCO2 39 (38-50) mmHg VBG pO2 30 mmHg VBG HCO3 25 mmol/L VBG O2 Saturation < 60.0 % VBG Base Excess 0.8 mEq/L Sodium 127 L (136-145) mmol/L Potassium 3.1 L (3.5-5.1) mmol/L Chloride 90 L (98-107) mmol/L Carbon Dioxide 25 (21-32) mmol/L Anion Gap 12 H (3-11) BUN 9 (6-23) mg/dl Creatinine 0.94 (0.6-1.2) mg/dl Est Cr Clr Drug Dosing 59.9 ml/min eGFR 69.04 BUN/Creatinine Ratio 9.6 L (10-20) Glucose 130 H (70-99(Fasting)) mg/dl Lactate 1.4 (0.4-2.0) mmol/L Calcium 8.8 (8.6-10.3) mg/dl Magnesium 1.9 (1.7-2.4) mg/dl Total Bilirubin 1.1 H (0.2-1.0) mg/dl Direct Bilirubin 0.2 (0-0.2) mg/dl AST 25 (13-39) U/L ALT 19 (7-52) U/L Alkaline Phosphatase 100 (34-104) U/L Troponin I High Sens 11.2 (0-14) pg/ml Total Protein 7.4 (6.0-8.3) gm/dl Albumin 3.7 (3.4-5.0) gm/dl Procalcitonin 0.87 H (0-0.5) ng/ml Urine Comment Imaging Data Attestation: I personally reviewed and interpreted this imaging study as follows: My Impression: Chest x-ray negative. Airway clear. No pneumothorax. No consolidation. No cardiomegaly or cephalization.. No free air under the diaphragm. No fractures of the skeletal structures. Radiologist's Impression: Chest X-Ray 04/13/25 19:32 Exam(s): XR CXR 1 VIEW EXAM: XR Chest, 1 View CLINICAL HISTORY: Reason for exam: Sepsis. TECHNIQUE: Frontal view of the chest. COMPARISON: None FINDINGS: Hardware: Right-sided Port-A-Cath terminates near the cavoatrial junction. Clips projected over the left lower chest. Lungs/pleura: Hyperinflated lungs. Lung nodules bilaterally. No focal consolidation. No pleural effusion or pneumothorax. Heart/mediastinum: Normal. No cardiomegaly. Soft tissues: Unremarkable. Bones: No acute fracture. Upper abdomen: Normal. IMPRESSION: 1. Lung nodules bilaterally, concerning for osseous metastases. 2. No focal consolidation. Electronically signed by: Ary Khoury M.D. 04/13/25 20:15 PM Lumbar Spine MRI 04/13/25 19:55 Exam(s): MRI L SPINE W/WO Contrast IV Amt: 6mL Gadavist given existing IV EXAM: MR Lumbar Spine Without and With Intravenous Contrast CLINICAL HISTORY: Reason for exam: fever cancer ro cord compression/abscess. TECHNIQUE: Magnetic resonance images of the lumbar spine without and with intravenous contrast in multiple planes. CONTRAST: Patient received 6mL Gadavist given existing IV of IV contrast COMPARISON: MRI 07/31/2024 FINDINGS: Vertebrae: Extensive metastatic disease within the lumbar spine and visualized portions of the sacrum and posterior pelvis. Appearance is similar to the prior. Unchanged superior endplate height loss at L3. No acute fracture. No spondylolisthesis. Spinal cord: Unremarkable. Normal signal. No abnormal enhancement. Soft tissues: Unremarkable. DISCS/SPINAL CANAL/NEURAL FORAMINA: L1-L2: Mild diffuse disc bulge. No canal or foraminal stenosis. L2-L3: Mild diffuse disc bulge and facet arthropathy. Mild canal stenosis. No foraminal stenosis. L3-4: Trace disc bulge. Facet arthropathy. No canal stenosis. Mild foraminal stenosis on the left. None on the right. L4-5: Trace disc bulge. No spinal canal or foraminal stenosis. L5-S1: Disc height loss and facet arthropathy. No canal stenosis. Mild bilateral foraminal stenosis. IMPRESSION: Redemonstrated of extensive metastatic disease. No high-grade canal stenosis or infection. Electronically signed by: Hoiwe Cramer MD 04/13/25 22:20 PM Thoracic Spine MRI 04/13/25 19:55 Exam(s): MRI T SPINE W/WO Contrast IV Amt: 6mL Gadavist given existing IV EXAM: MR Thoracic Spine Without and With Intravenous Contrast CLINICAL HISTORY: Reason for exam: fever cancer ro cord compression/abscess. TECHNIQUE: Magnetic resonance images of the thoracic spine without and with intravenous contrast in multiple planes. CONTRAST: Patient received 6mL Gadavist given existing IV of IV contrast COMPARISON: No relevant prior studies available. FINDINGS: Extensive metastatic disease throughout the thoracic spine. No acute fracture. No spondylolisthesis. No spinal canal or foraminal stenosis. Normal cord signal. IMPRESSION: Extensive metastatic disease. No acute abnormality or significant stenosis. Electronically signed by: Howie Cramer MD 04/13/25 22:22 PM ECG Data Attestation: I personally reviewed and interpreted this ECG as follows: Rate (beats per minute): 111 Rhythm: sinus tachycardia Findings: no ST depression, no ST elevation or no prolonged QT MDM Narrative 1932: The patient was evaluated in room B7. A complete history and physical exam was performed Cardiac monitoring: An order was placed for continuous cardiac monitoring. The monitor shows a rate of 110 with sinus rhythm interpreted by me Sepsis protocols initiated given hypotension reported fever. MRIs will be ordered for the patient to rule out cord compression. 2225: Vital signs stable. Labs are significant for hyponatremia of 127. No focal neurological deficits no seizures. No need for hypertonic saline. Labs show an elevated procalcitonin. Mild leukopenia of 3 platelet count of 69. Urine dip is concerning for infection. Patient treated with Zosyn and Vanco. MRIs show no evidence of cord compression or epidural abscess. There is extensive metastatic disease. Patient will be admitted to the hospitalist team. Impression & Plan Acute hyponatremia, UTI (urinary tract infection), Back pain Discharge Plan Visit Data Stated Complaint: BACK PAIN ED Provider: Isaac Sagastume Discharge Problem: Acute hyponatremia, UTI (urinary tract infection), Back pain Patient Disposition: Admitted As Inpatient Condition: Fair Prescriptions Prescriptions: No Action multivitamin Tablet 1 tab PO QAM gabapentin 100 mg capsule 400 mg PO AMHS oxycodone 5 mg tablet 5 mg PO UD PRN (Reason: Pain) Rx Instructions: 5 mg po q6h prn last filled 02/14 for 4 day supply docusate sodium 100 mg capsule 100 mg PO DAILY PRN (Reason: Constipation) fluticasone propionate [Allergy Relief (fluticasone)] 50 mcg/actuation spray,suspension 2 spray intranasal QAM Rx Instructions: administer into each nostril prochlorperazine maleate 10 mg tablet 10 mg PO Q6H PRN primidone 50 mg tablet 25 mg PO HS pantoprazole 40 mg tablet,delayed release (DR/EC) 40 mg PO QAM vitamin E 400 unit Tablet 45 mg PO QAM magnesium 250 mg Tablet 500 mg PO QAM cholecalciferol (vitamin D3) [Vitamin D3] 25 mcg (1,000 unit) Tablet 25 mcg PO QAM vitamin B complex Tablet 1 tab PO DAILY dexamethasone 2 mg tablet 1 mg PO QAM midodrine 10 mg tablet 10 mg PO TID Rx Instructions: MORNING,NOON AND EVENING TIMES ferrous sulfate [iron] 325 mg (65 mg iron) Tablet 325 mg PO 3XWK Rx Instructions: [id number] ondansetron HCl 8 mg tablet 8 mg PO Q8 PRN (Reason: Nausea) lidocaine-prilocaine 2.5-2.5 % cream 1 applic topical UD PRN (Reason: Other) Rx Instructions: APPLY TO SKIN OVER MEDIPORT & COVER 1HR PRIOR TO ACCESSING. albuterol sulfate 90 mcg/actuation HFA aerosol inhaler 2 puff INHALATION Q4 PRN (Reason: Shortness Of Breath) Referrals Referrals: Dean Mooney MD [Primary Care Provider] -
[2025-04-13 23:24] LABS: Thyroid Stimulating Hormone 2.687 uIu/ml (0.300-4.500)
[2025-04-13 23:29] LABS: Appearance Urine Cloudy (Clear); Bacteria Urine Automated 4+ (None Seen); Epithelial Cell Urine Auto 0-2 /hpf (0-2); Glucose Urine UA Negative (Negative); WBC Urine Automated >50 /hpf (0-5)
[2025-04-13] MEDS: MAGNESIUM SULFATE / D5W 1 GM/100 ML BAG IV ONE (23:41)
[2025-04-13] MEDS: POTASSIUM CHLORIDE CRTAB 20 MEQ TABCR PO STA (23:41)
--- NOTE | 2025-04-13 23:41 | History & Physical Report ---
Date of Service April 13, 2025 Assessment & Plan (1) Sepsis: Plan: Assessment and plan below following discussion of case with ED provider and reviewing patient history/pertinent normal/abnormal diagnostic test results. Sepsis Immunocompromised patient hx metastatic breast cancer status post surgery/chemotherapy ongoing Trodelvy/radiation Rx chronic cancer pain on daily Decadron Rx Secondary to complicated UTI chronic diastolic heart failure (EF 55%, TTE 2023), patient on the dry side Hypovolemic hyponatremia secondary to illness hypotension on midodrine, possible adrenal insufficiency given illness/chronic steroid Rx hx PVD COPD, not in acute exacerbation essential tremors on primidone chronic pancytopenia likely secondary to chemotherapy, hemoglobin at baseline Hypokalemia secondary to illness Steroid-induced hyperglycemia rule out DM ongoing tobacco abuse Admit to med/tele CS, Cefepime Decadron 1 dose now for possible adrenal insufficiency given hypotension Continue midodrine Careful correction of sodium, hyponatremia workup Check hemoglobin A1c Replace electrolytes DVT prophylaxis with SCDs Re: Thrombocytopenia DNR as per patient prior directives. Text document was generated using [employer] voice recognition software. It may contain grammatical or spelling errors. Kindly contact undersigned for clarification of any documentation item in question. History of Present Illness Chief Complaint: Worsening back pain, dysuria, fever Primary Care Provider: Dean Mooney MD History obtained from patient and records. Medical history significant for chronic diastolic heart failure (EF 55%, TTE 2023), hypotension on midodrine, PVD, COPD, breast cancer with lung, liver, bone and brain mets status post surgery/chemotherapy ongoing Trodelvy/radiation Rx, chronic cancer pain on daily Decadron Rx, essential tremors, chronic pancytopenia (baseline hemoglobin 10-11), anxiety/mood disorder, ongoing tobacco abuse. Last confinement February 2024 for sepsis secondary to multifocal pneumonia. Patient had worsening midback pain the last 2 days. No radiation to the legs. No new incontinence symptoms. Dysuria symptoms without hematuria. Denies chest pain, SOB, cough symptoms. Fever and chills at home. Vancomycin and Zosyn administered at the ER Medical History as above Surgical History : Mastectomy, breast reconstruction, vascular procedures, lipectomy Family History : Breast cancer, DM, stroke Personal/Social history : Half pack daily, occasional EtOH intake, disabled Allergies Allergy/AdvReac Type Severity Reaction Status Date / Time No Known Allergies Allergy Verified 08/19/25 08:35 Home Medications Medication Instructions Recorded Confirmed Type multivitamin 1 tab PO QAM 06/21/20 04/13/25 History cholecalciferol (vitamin D3) 25 25 mcg PO QAM 11/26/22 04/13/25 History mcg (1,000 unit) tablet (Vitamin D3) magnesium 250 mg tablet 500 mg PO QAM 11/26/22 04/13/25 History vitamin B complex 1 tab PO QAM 12/09/22 04/13/25 History albuterol sulfate 90 mcg/actuation 2 puff inhalation Q4 PRN Shortness 02/17/24 04/13/25 History aerosol inhaler Of Breath lidocaine-prilocaine 2.5 %-2.5 % 1 applic topical UD PRN Other 02/17/24 04/13/25 History topical cream ondansetron HCl 8 mg tablet 8 mg PO Q8 PRN Nausea 02/17/24 04/13/25 History docusate sodium 100 mg capsule 100 mg PO DAILY PRN Constipation 03/29/25 04/13/25 History fluticasone propionate 50 2 spray intranasal QA 03/29/25 04/13/25 History mcg/actuation nasal spray,suspension (Allergy Relief (fluticasone)) gabapentin 100 mg capsule 400 mg PO AMHS 03/29/25 04/13/25 History pantoprazole 40 mg tablet,delayed 40 mg PO QAM 03/29/25 04/13/25 History release primidone 50 mg tablet 25 mg PO HS 03/29/25 04/13/25 History prochlorperazine maleate 10 mg 10 mg PO Q6H PRN Nausea 03/29/25 04/13/25 History tablet calcium carbonate (Calcium 600) 600 mg PO DAILY 04/13/25 04/13/25 History dexamethasone 2 mg tablet 1 mg PO QAM 04/13/25 04/13/25 History ferrous sulfate 325 mg (65 mg 325 mg PO 3XWK 04/13/25 04/13/25 History iron) tablet (iron) midodrine 10 mg tablet 10 mg PO TID 04/13/25 04/13/25 History oxycodone 5 mg tablet 10 mg PO Q6 PRN PAIN,SEVERE 04/13/25 04/13/25 History vitamin E 268 mg (400 unit) capsule 268 mg PO DAILY 04/13/25 04/13/25 History Past Med/Surg History Problem List (Updated 04/14/25 @ 04:43 by Jacek Jerez MD) Severe sepsis Back pain (Acute) UTI (urinary tract infection) (Acute) Acute hyponatremia (Acute) Malignant neoplasm of breast metastatic to bone (Chronic) Palliative care by specialist Advanced care planning/counseling discussion Depression due to physical illness Weakness generalized Dyspnea and respiratory abnormalities COPD with emphysema Acute respiratory failure with hypoxia Multifocal pneumonia Change in mental status (Acute) Cancer related pain Electrolyte imbalance Hypotension Anxiety with agitation Pneumonia (Acute) Sepsis (Acute) Metastatic breast cancer (Chronic) 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) Encounter for pre-operative examination Malignant neoplasm of upper-outer quadrant of left breast in female, estrogen receptor positive (Chronic 11/02/19) Medical History Limb alert care status left arm Gallstones Brain aneurysm 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 History of colonoscopy Hx of left mastectomy (05/25/20) with [place] Lymph node identification History of reconstruction of left breast (05/25/20) History of breast biopsy (11/02/19) left breast Family History Grandfather (Maternal) , great grandmother; diagnosed @ 80 yr old Breast cancer Father Family history of diabetes mellitus Mother Family history of diabetes mellitus Brother Family history of diabetes mellitus Social History Smoking Status: Light tobacco smoker Tobacco Type: Cigarettes Age Started Using Tobacco: 14; Age Quit Using Tobacco: 54; packs per day: 1; Cigarettes Per Day: 1/2 pack per day; Second Hand Exposure: Yes ( smokes); Do You Dip or Chew Tobacco: No; Hx Alcohol Use: Yes Alcohol type: wine Alcohol Intake Frequency: 4 or More x per/Week Alcohol Intake Frequency Comment: usually 1-3 glasses with supper Hx Substance Use: No Preferred Language: Malaysian Communication Ability: Effective Visual Impairment: No Limitations Hearing Ability: Normal T[employer]or Women'S Garment Alteration Required: No Beliefs That Will Affect Care: None marital status: Current Living Situation: Spouse current occupational status: employed current occupation: [employer] unemployment from COVID to Breast Cancer How many Children do You have: 2 Other Information That Helps Us Care for You: No Feels Safe at Home: Yes Safety Concerns: Feels Safe At This Time Childhood Exposure to Second-Hand Smoke: Yes caffeine: Yes (tea 2 cups/day) during the past year weight has: remained stable Dental Care, Regularly: No Physical Activity Frequency: Does not Exercise Physical Activity Frequency Comment: her work required a lot of activity but is off now Seatbelt Use: always Sunscreen Use: No Assistive Devices: None Review of Systems Review of Systems: As per HPI, all other systems reviewed and negative Physical Exam Physical Exam: GENERAL: Comfortable, dysphonic (chronic as per patient), no respiratory distress SKIN: Pallor, warm HEENT: Pale palpebral conjunctivae, no ptosis, dry buccal mucosa NECK : Supple, no tenderness CHEST : Decreased breath sounds, no tenderness HEART : Tachycardic, no obvious murmurs ABDOMEN: Some distention, nontender BACK : Mid back tenderness EXTREMITIES : No LE swelling/tenderness, palpable pulses, no other conspicuous deformities noted NEUROLOGIC : Coherent, no facial asymmetry, no other gross focality Results & Data Results & Data Vital Signs (Past 12 Hours) Vital Signs Temp Pulse Resp BP Pulse Ox O2 Del Method 04/13/25 23:15 104 H 15 99/70 L 95 04/13/25 23:00 102 H 18 100/71 95 04/13/25 22:45 102 H 15 95/68 L 97 04/13/25 22:30 104 H 18 98/74 L 04/13/25 22:15 113 H 20 103/75 98 04/13/25 22:02 115 H 20 101/74 98 04/13/25 20:00 110 H 18 103/70 96 04/13/25 19:45 110 H 19 95/75 L 95 04/13/25 19:42 113 H 04/13/25 19:39 115 H 20 98 Room Air 04/13/25 19:30 115 H 20 99/78 L 98 04/13/25 19:21 117 H 20 103/77 98 04/13/25 19:19 37.0 C 112 H 20 103/77 98 Room Air Laboratory Results Laboratory Results WBC 3.00 K/ul (4.8-10.8) L 04/13/25 19:25 RBC 2.91 M/uL (4.20-5.40) L 04/13/25 19:25 Hgb 10.5 g/dl (12.0-16.0) L 04/13/25 19:25 Hct 29.4 % (37.0-47.0) L 04/13/25 19: MCV 101.0 fL (80.0-100.0) H 04/13/25: MCH 36.1 pg (25.0-34.0) H 04/13/25: MCHC 35.7 g/dL (32.0-36.0) 04/13/25: RDW Std Deviation 51.5 fL (36.4-46.3) H 04/13/25: RDW Coeff of Carlos 13.7 % (11.5-14.5) 04/13/25: Plt Count 69 K/uL (130-400) L 04/13/25: MPV 11.9 fL (9.4-12.4) 04/13/25 19:25 Immature Gran % (Auto) 1.3 % 04/13/25:25 Neut % (Auto) 78.4 % 04/13/25 19:25 Lymph % (Auto) 5.7 % 04/13/25 19:25 Lyman % (Auto) 12.3 % 04/13/25 19:25 Eos % (Auto) 1.0 % 04/13/25:25 Baso % (Auto) 1.3 % 04/13/25: Neut # (Auto) 2.35 K/uL (1.40-6.50) 04/13/25 19: Lymph # (Auto) 0.17 K/uL (1.20-3.40) L 04/13/25 19:25 Lyman # (Auto) 0.37 K/uL (0.11-0.59) 04/13/25 19:25 Eos # (Auto) 0.03 K/uL (0.00-0.50) 04/13/25 19:25 Baso # (Auto) 0.04 K/uL (0.00-0.20) 04/13/25 19:25 Immature Gran # (Auto) 0.04 K/uL (0.01-0.20) 04/13/25 19:25 Toxic Granulation 3+ 04/13/25 19:25 Dohle Bodies 2+ 04/13/25 19:25 Polychromasia 2+ 04/13/25 19:25 PT 11.0 Seconds (9.0-12.0) 04/13/25: INR 1.0 (0.9-1.1) 04/13/25: APTT 30 Seconds (21-31) 04/13/25: PTT Ratio 1.1 04/13/25:25 VBG pH 7.42 (7.36-7.41) H 04/13/25 19:47 VBG pCO2 39 mmHg (38-50) 04/13/25 19:47 VBG pO2 30 mmHg 04/13/25 19:47 VBG HCO3 25 mmol/L 04/13/25 19:47 VBG O2 Saturation < 60.0 % 04/13/25 19:47 VBG Base Excess 0.8 mEq/L 04/13/25 19:47 Sodium 127 mmol/L (136-145) L 04/13/25 19:25 Potassium 3.1 mmol/L (3.5-5.1) L 04/13/25 19:25 Chloride 90 mmol/L (98-107) L 04/13/25 19:25 Carbon Dioxide 25 mmol/L (21-32) 04/13/25 19:25 Anion Gap 12 (3-11) H 04/13/25:25 BUN 9 mg/dl (6-23) 04/13/25: Creatinine 0.94 mg/dl (0.6-1.2) 04/13/25:25 Est Cr Clr Drug Dosing 59.9 ml/min 04/13/25 19:25 eGFR 69.04 04/13/25:25 BUN/Creatinine Ratio 9.6 (10-20) L 09/03/25 19:25 Glucose 130 mg/dl (70-99(Fasting)) H 04/13/25 19:25 Osmolality 259 mOsm/kg (280-300) L 04/13/25 19:25 Lactate 1.4 mmol/L (0.4-2.0) 04/13/25 19:47 Calcium 8.8 mg/dl (8.6-10.3) 04/13/25 19:25 Magnesium 1.9 mg/dl (1.7-2.4) 04/13/25 19:25 Total Bilirubin 1.1 mg/dl (0.2-1.0) H 04/13/25 19:25 Direct Bilirubin 0.2 mg/dl (0-0.2) 04/13/25 19:25 AST 25 U/L (13-39) 04/13/25 19:25 ALT 19 U/L (7-52) 04/13/25 19:25 Alkaline Phosphatase 100 U/L (34-104) 04/13/25 19:25 Troponin I High Sens 11.2 pg/ml (0-14) 04/13/25 19:25 Total Protein 7.4 gm/dl (6.0-8.3) 04/13/25 19: Albumin 3.7 gm/dl (3.4-5.0) 04/13/25 19:25 Procalcitonin 0.87 ng/ml (0-0.5) H 04/13/25 19:25 TSH 2.687 uIu/ml (0.300-4.500) 04/13/25 19:25 Urine Color Yellow 04/13/25 22:30 Urine Appearance Cloudy (Clear) A 04/13/25 22: Urine pH 6.0 (4.5-7.5) 04/13/25 22:30 Ur Specific [place] 1.009 (1.000-1.030) 04/13/25 22:30 Urine Protein 2+ (Negative) H 04/13/25 22:30 Urine Glucose (UA) Negative (Negative) 04/13/25 22:30 Urine Ketones Negative (Negative) 04/13/25 22:30 Urine Blood 2+ (Negative) H 04/13/25 22:30 Urine Nitrite Positive (Negative) A 04/13/25 22:30 Urine Bilirubin Negative (Negative) 04/13/25 22:30 Urine Urobilinogen Negative (Negative) 04/13/25 22:30 Ur Leukocyte Esterase 2+ (Negative) H 04/13/25 22:30 Urine WBC (Auto) >50 /hpf (0-5) H 04/13/25 22:30 Urine RBC (Auto) 3-5 /hpf (0-2) H 04/13/25 22:30 U Hyaline Cast (Auto) 6-10 /lpf (0-2) H 04/13/25 22:30 U Epithel Cells (Auto) 0-2 /hpf (0-2) 04/13/25 22:30 Urine Bacteria (Auto) 4+ (None Seen) H 04/13/25 22:30 Urine Comment 04/13/25 22:30 Impressions Chest X-Ray 04/13/25 19:32 Exam(s): XR CXR 1 VIEW EXAM: XR Chest, 1 View CLINICAL HISTORY: Reason for exam: Sepsis. TECHNIQUE: Frontal view of the chest. COMPARISON: None FINDINGS: Hardware: Right-sided Port-A-Cath terminates near the cavoatrial junction. Clips projected over the left lower chest. Lungs/pleura: Hyperinflated lungs. Lung nodules bilaterally. No focal consolidation. No pleural effusion or pneumothorax. Heart/mediastinum: Normal. No cardiomegaly. Soft tissues: Unremarkable. Bones: No acute fracture. Upper abdomen: Normal. IMPRESSION: 1. Lung nodules bilaterally, concerning for osseous metastases. 2. No focal consolidation. Electronically signed by: Ary Khoury M.D. 04/13/25 20:15 PM Lumbar Spine MRI 04/13/25 19:55 Exam(s): MRI L SPINE W/WO Contrast IV Amt: 6mL Gadavist given existing IV EXAM: MR Lumbar Spine Without and With Intravenous Contrast CLINICAL HISTORY: Reason for exam: fever cancer ro cord compression/abscess. TECHNIQUE: Magnetic resonance images of the lumbar spine without and with intravenous contrast in multiple planes. CONTRAST: Patient received 6mL Gadavist given existing IV of IV contrast COMPARISON: MRI 07/31/2024 FINDINGS: Vertebrae: Extensive metastatic disease within the lumbar spine and visualized portions of the sacrum and posterior pelvis. Appearance is similar to the prior. Unchanged superior endplate height loss at L3. No acute fracture. No spondylolisthesis. Spinal cord: Unremarkable. Normal signal. No abnormal enhancement. Soft tissues: Unremarkable. DISCS/SPINAL CANAL/NEURAL FORAMINA: L1-L2: Mild diffuse disc bulge. No canal or foraminal stenosis. L2-L3: Mild diffuse disc bulge and facet arthropathy. Mild canal stenosis. No foraminal stenosis. L3-4: Trace disc bulge. Facet arthropathy. No canal stenosis. Mild foraminal stenosis on the left. None on the right. L4-5: Trace disc bulge. No spinal canal or foraminal stenosis. L5-S1: Disc height loss and facet arthropathy. No canal stenosis. Mild bilateral foraminal stenosis. IMPRESSION: Redemonstrated of extensive metastatic disease. No high-grade canal stenosis or infection. Electronically signed by: Howie Cramer MD 04/13/25 22:20 PM Thoracic Spine MRI 04/13/25 19:55 Exam(s): MRI T SPINE W/WO Contrast IV Amt: 6mL Gadavist given existing IV EXAM: MR Thoracic Spine Without and With Intravenous Contrast CLINICAL HISTORY: Reason for exam: fever cancer ro cord compression/abscess. TECHNIQUE: Magnetic resonance images of the thoracic spine without and with intravenous contrast in multiple planes. CONTRAST: Patient received 6mL Gadavist given existing IV of IV contrast COMPARISON: No relevant prior studies available. FINDINGS: Extensive metastatic disease throughout the thoracic spine. No acute fracture. No spondylolisthesis. No spinal canal or foraminal stenosis. Normal cord signal. IMPRESSION: Extensive metastatic disease. No acute abnormality or significant stenosis. Electronically signed by: Howie Cramer MD 04/13/25 22:22 PM Diagnostic Findings EKG as per my interpretation :Rate 110, sinus tachycardia, normal axis, incomplete RBBB, no ischemia (1) Sepsis Acute respiratory failure type: with hypoxia Sepsis acute organ dysfunction status: with acute organ dysfunction Sepsis type: sepsis due to unspecified organism Severe sepsis shock status: unspecified
[2025-04-14] MEDS: dexAMETHasone 4 MG in SYRINGE 0 ML IV ONE (00:23)
[2025-04-14] MEDS ORDERED: PROMETHAZINE 6.25 MG/50.25 ML BAG IV PRN (00:53)
[2025-04-14 01:54] LABS: Anion Gap 8.0 (3-11); Blood Urea Nitrogen 8.0 mg/dl (6-23); Calcium 7.7 mg/dl (8.6-10.3); Carbon Dioxide 24.0 mmol/L (21-32); Chloride 98.0 mmol/L (98-107); Creatinine Clr Calc Pharmacy 67.1 ml/min; Glucose 134.0 mg/dl (70-99(Fasting)); Potassium 2.9 mmol/L (3.5-5.1); Sodium 130.0 mmol/L (136-145)
[2025-04-14 01:55] LABS: Hematocrit (blood only) 22.6 % (37.0-47.0); Hemoglobin 8.1 g/dl (12.0-16.0); Mean Corpuscular Hemoglobin 36.5 pg (25.0-34.0); Mean Corpuscular Volume 101.8 fL (80.0-100.0); Platelet Count 59 K/uL (130-400); RDW Standard Deviation 51.3 fL (36.4-46.3); Red Blood Count 2.22 M/uL (4.20-5.40); White Blood Count 2.30 K/ul (4.8-10.8)
[2025-04-14 02:02] LABS: Dohle Bodies 2+; Immature Granulocytes # (auto) 0.02 K/uL (0.01-0.20); Immature Granulocytes % (auto) 0.9 %; Polychromasia 2+; Toxic Granulation 3+
[2025-04-14] MEDS: ALBUMIN 25% 12.5 GM/50 ML VIAL IV ONE (02:27)
[2025-04-14] MEDS: POTASSIUM CHLORIDE CRTAB 20 MEQ TABCR PO STA (02:27)
[2025-04-14] MEDS: ACETAMINOPHEN 325 MG TAB PO PRN (04:16)
[2025-04-14] MEDS: MIDODRINE HCL 10 MG TAB PO STA (04:16)
[2025-04-14] MEDS: CEFEPIME 2000MG 2,000 MG/20 ML SYR IV SCH (05:47)
[2025-04-14 06:52] LABS: Hemoglobin A1C 5.9 % (4.5-5.6)
[2025-04-14] MEDS: SODIUM CHLORIDE 0.9% 1,000 ML IV SCH ×2 (06:58→11:28)
[2025-04-14] MEDS ORDERED: MIDODRINE HCL 10 MG TAB PO SCH (08:00)
[2025-04-14 08:27] LABS: Alanine Aminotransferase 16.0 U/L (7-52); Albumin Globulin Ratio 1.1 (0.9-2); Alkaline Phosphatase 82.0 U/L (34-104); Anion Gap 7.0 (3-11); Bilirubin,Total 0.9 mg/dl (0.2-1.0); Blood Urea Nitrogen 10.0 mg/dl (6-23); Calcium 8.3 mg/dl (8.6-10.3); Carbon Dioxide 23.0 mmol/L (21-32); Chloride 102.0 mmol/L (98-107); Creatinine Clr Calc Pharmacy 69.6 ml/min; Globulin 3.0 gm/dl (2.5-4.0); Glucose 149.0 mg/dl (70-99(Fasting)); Magnesium 2.5 mg/dl (1.7-2.4); Potassium 4.4 mmol/L (3.5-5.1); Sodium 132.0 mmol/L (136-145); Total Protein 6.4 gm/dl (6.0-8.3)
[2025-04-14] MEDS: VITAMIN B COMPLEX TAB PO SCH (09:16)
[2025-04-14] MEDS: MULTIVITAMIN TAB PO SCH (09:16)
[2025-04-14] MEDS: FLUTICASONE PROPIONATE NA SPR 16 GM BTL NAE SCH (09:17)
[2025-04-14] MEDS: GABAPENTIN 400 MG CAP PO SCH (09:17)
[2025-04-14] MEDS: MIDODRINE HCL 10 MG TAB PO SCH (11:28)
--- NOTE | 2025-04-14 12:24 | Electrocardiogram Report ---
Test Reason : Blood Pressure : */* mmHG Vent. Rate : 111 BPM Atrial Rate : 111 BPM P-R Int : 146 ms QRS Dur : 84 ms QT Int : 320 ms P-R-T Axes : 73 80 77 degrees QTcB Int : 435 ms Sinus tachycardia Possible Left atrial enlargement Incomplete right bundle branch block Borderline ECG When compared with ECG of 24-Feb-2024 15:20, No significant change was found Confirmed by Tyrone Honeycutt ([id number]) on 04/14/2025 12:23:48 PM Referred By: REFERRED SELF Confirmed By: Tyrone Honeycutt
--- NOTE | 2025-04-14 12:24 | Hospitalist Progress Note ---
Date of Service April 14, 2025 Assessment & Plan (1) Sepsis: Plan: Assessment and plan below following discussion of case with ED provider and reviewing patient history/pertinent normal/abnormal diagnostic test results. Sepsis Immunocompromised patient hx metastatic breast cancer status post surgery/chemotherapy ongoing Trodelvy/radiation Rx chronic cancer pain on daily Decadron Rx Secondary to complicated UTI 04/14 Urine culture: Pending Blood culture: Pending Continue empiric IV cefepime IV fluids Back pain secondary to metastasis Thoracic and lumbar spine MRI today revealing multiple locations of metastasis Patient on fentanyl 12.5 mcg patch at home, will continue Continue as needed oxycodone Hold off on radiation therapy today, likely resume tomorrow chronic diastolic heart failure (EF 55%, TTE 2023), patient on the dry side -- gentle IV fluids ordered Hypovolemic hyponatremia secondary to illness -- sodium 132 hypotension on midodrine, possible adrenal insufficiency given illness/chronic steroid Rx -- blood pressure systolic 90s, gentle IV fluids, continue midodrine hx PVD COPD, not in acute exacerbation essential tremors on primidone chronic pancytopenia likely secondary to chemotherapy, hemoglobin at baseline Hypokalemia secondary to illness -- repeat potassium 4.4 Steroid-induced hyperglycemia rule out DM ongoing tobacco abuse DVT prophylaxis with SCDs Re: Thrombocytopenia DNR as per patient prior directives. Admission and Anticipated Discharge Date Admission Date: April 13, 2025 Subjective seen resting in bed, sitting up, comfortable, not in distress Patient's Masood at the bedside visiting States she feels improved today Back pain seems to be improving No leg weakness or numbness Reports dysuria, mild lower abdominal discomfort and episode of fever at home last Friday Appetite is good No other new symptoms Review of Systems Review of Systems: all noted and negative except for above Physical Exam Physical Exam: General- oriented x 3, not in distress, speaks in sentences with no effort or accessory muscle use Eyes- anicteric Neck- no JVD Lungs- clear breath sounds bilaterally, no rales/wheezes Heart- normal rate, regular rhythm; no murmurs Abdomen- normal bowel sounds, nondistended, soft, no tenderness Extremities- no pretibial edema, no calf tenderness Neuro- alert, oriented x 3; no gross focal neurologic deficits Skin- warm & dry Results & Data Results & Data Vital Signs (Past 12 Hours) Vital Signs Temp Pulse Pulse Resp BP Pulse Ox Pulse Ox 04/14/25 11:55 36.4 C L 81 18 109/75 97 04/14/25 09:35 04/14/25 08:13 36.5 C 77 16 96/55 L 96 04/14/25 07:30 78 04/14/25 04:15 36.8 C 90 18 105/73 94 04/14/25 02:06 37.2 C 106 H 16 97/66 L 91 04/14/25 01:54 100 H 04/14/25 01:51 37.2 C 106 H 16 97/66 L 91 04/14/25 01:51 91 04/14/25 01:10 04/14/25 01:02 99 H 16 108/70 97 O2 Del Method O2 Del Method 04/14/25 11:55 Room Air 04/14/25 09:35 Room Air 04/14/25 08:13 Room Air 04/14/25 07:30 04/14/25 04:15 Room Air 04/14/25 02:06 Room Air 04/14/25 01:54 04/14/25 01:51 Room Air 04/14/25 01:51 Room Air 04/14/25 01:10 Room Air 04/14/25 01:02 Room Air all noted and reviewed including below (1) Sepsis Acute respiratory failure type: with hypoxia Sepsis acute organ dysfunction status: with acute organ dysfunction Sepsis type: sepsis due to unspecified organism Severe sepsis shock status: unspecified
[2025-04-14] MEDS: PRIMIDONE 50 MG TAB PO SCH (22:10)
[2025-04-15 06:18] LABS: Hematocrit (blood only) 25.8 % (37.0-47.0); Hemoglobin 8.7 g/dl (12.0-16.0); Mean Corpuscular Hemoglobin 35.5 pg (25.0-34.0); Mean Corpuscular Volume 105.3 fL (80.0-100.0); Platelet Count 99 K/uL (130-400); RDW Standard Deviation 53.1 fL (36.4-46.3); Red Blood Count 2.45 M/uL (4.20-5.40); White Blood Count 3.60 K/ul (4.8-10.8)
[2025-04-15 06:43] LABS: Anion Gap 9.0 (3-11); Blood Urea Nitrogen 7.0 mg/dl (6-23); Calcium 8.6 mg/dl (8.6-10.3); Carbon Dioxide 22.0 mmol/L (21-32); Chloride 106.0 mmol/L (98-107); Creatinine Clr Calc Pharmacy 70.2 ml/min; Glucose 99.0 mg/dl (70-99(Fasting)); Magnesium 2.2 mg/dl (1.7-2.4); Potassium 3.5 mmol/L (3.5-5.1); Sodium 137.0 mmol/L (136-145)
[2025-04-15] MEDS ORDERED: POTASSIUM PHOS 3 MMOL/1 ML INFUSION IV STA (06:52)
[2025-04-15 06:54] LABS: Dohle Bodies 2+; Immature Granulocytes # (auto) 0.07 K/uL (0.01-0.20); Immature Granulocytes % (auto) 1.9 %; Toxic Granulation 2+
[2025-04-15 07:54] VITALS: RESP 20
[2025-04-15] MEDS: POTASSIUM PHOSPHATE 15 MMOL in SODIUM CHLORIDE 0.9% 250 ML IV ONE (08:34)
[2025-04-15] MEDS: FERROUS SULFATE 325 MG TAB PO SCH (08:35)
--- NOTE | 2025-04-15 14:58 | Discharge Summary ---
Discharge Summary Date of Service April 15, 2025 Principal Dx & Hospital Course #1 = Principal Diagnosis (1) Sepsis: Assessment and plan below following discussion of case with ED provider and reviewing patient history/pertinent normal/abnormal diagnostic test results. Sepsis, E. coli UTI Immunocompromised patient hx metastatic breast cancer status post surgery/chemotherapy ongoing Trodelvy/radiation Rx chronic cancer pain on daily Decadron Rx Secondary to complicated UTI 04/14 Urine culture: E coli Blood culture: Pending Continue empiric IV cefepime IV fluids 04/15 Clinically stable, improved overall Urine culture growing E. coli, sensitivities pending, please follow-up Blood cultures negative so far, final results pending, please follow-up Transition to cefdinir 300 mg twice a day for 6 days Follow-up with PCP in 1 week Back pain secondary to metastasis Thoracic and lumbar spine MRI today revealing multiple locations of metastasis Patient on fentanyl 12.5 mcg patch at home, will continue Continue as needed oxycodone patient received radiation therapy while admitted Continue to follow-up as outpatient Hypophosphatemia --Phosphorus 1.5, IV phosphorus ordered P.o. phosphorus upon discharge ordered Repeat phosphorus level as an outpatient chronic diastolic heart failure (EF 55%, TTE 2023), patient on the dry side -- gentle IV fluids ordered Hypovolemic hyponatremia secondary to illness -- sodium 132 hypotension on midodrine, possible adrenal insufficiency given illness/chronic steroid Rx -- blood pressure systolic 90s, gentle IV fluids, continue midodrine stable overall hx PVD COPD, not in acute exacerbation essential tremors on primidone chronic pancytopenia likely secondary to chemotherapy, hemoglobin at baseline Hypokalemia secondary to illness -- repeat potassium 4.4 Steroid-induced hyperglycemia rule out DM -- A1c 5.9 monitor as outpatient ongoing tobacco abuse DVT prophylaxis with SCDs Re: Thrombocytopenia DNR as per patient prior directives. Notes For Next Care Provider Medication Changes From Visit Cefdinir x 6 days Neutra-Phos x 1 week, Admission HPI Per Admitting Provider History obtained from patient and records. Medical history significant for chronic diastolic heart failure (EF 55%, TTE 2023), hypotension on midodrine, PVD, COPD, breast cancer with lung, liver, bone and brain mets status post surgery/chemotherapy ongoing Trodelvy/radiation Rx, chronic cancer pain on daily Decadron Rx, essential tremors, chronic pancytopenia (baseline hemoglobin 10-11), anxiety/mood disorder, ongoing tobacco abuse. Last confinement February 2024 for sepsis secondary to multifocal pneumonia. Patient had worsening midback pain the last 2 days. No radiation to the legs. No new incontinence symptoms. Dysuria symptoms without hematuria. Denies chest pain, SOB, cough symptoms. Fever and chills at home. Vancomycin and Zosyn administered at the ER Medical History as above Surgical History : Mastectomy, breast reconstruction, vascular procedures, lipectomy Family History : Breast cancer, DM, stroke Personal/Social history : Half pack daily, occasional EtOH intake, disabled Admission Exam Per Admitting Provider GENERAL: Comfortable, dysphonic (chronic as per patient), no respiratory distress SKIN: Pallor, warm HEENT: Pale palpebral conjunctivae, no ptosis, dry buccal mucosa NECK : Supple, no tenderness CHEST : Decreased breath sounds, no tenderness HEART : Tachycardic, no obvious murmurs ABDOMEN: Some distention, nontender BACK : Mid back tenderness EXTREMITIES : No LE swelling/tenderness, palpable pulses, no other conspicuous deformities noted NEUROLOGIC : Coherent, no facial asymmetry, no other gross focality Discharge Exam General- oriented x 3, not in distress, speaks in sentences with no effort or accessory muscle use Eyes- anicteric Neck- no JVD Lungs- clear breath sounds bilaterally, no rales/wheezes Heart- normal rate, regular rhythm; no murmurs Abdomen- normal bowel sounds, nondistended, soft, nontender no CVA tenderness Extremities- no pretibial edema, no calf tenderness Neuro- alert, oriented x 3; no gross focal neurologic deficits Skin- warm & dry Updated Medication List Medication Instructions Recorded Confirmed Type multivitamin 1 tab PO QAM 06/21/20 04/13/25 History cholecalciferol (vitamin D3) 25 25 mcg PO QAM 11/26/22 04/13/25 History mcg (1,000 unit) tablet (Vitamin D3) magnesium 250 mg tablet 500 mg PO QAM 11/26/22 04/13/25 History vitamin B complex 1 tab PO QAM 12/09/22 04/13/25 History albuterol sulfate 90 mcg/actuation 2 puff inhalation Q4 PRN Shortness 02/17/24 04/13/25 History aerosol inhaler Of Breath lidocaine-prilocaine 2.5 %-2.5 % 1 applic topical UD PRN Other 02/17/24 04/13/25 History topical cream ondansetron HCl 8 mg tablet 8 mg PO Q8 PRN Nausea 02/17/24 04/13/25 History docusate sodium 100 mg capsule 100 mg PO DAILY PRN Constipation 03/29/25 04/13/25 History fluticasone propionate 50 2 spray intranasal QAM 03/29/25 04/13/25 History mcg/actuation nasal spray,suspension (Allergy Relief (fluticasone)) gabapentin 100 mg capsule 400 mg PO AMHS 03/29/25 04/13/25 History pantoprazole 40 mg tablet,delayed 40 mg PO QAM 03/29/25 04/13/25 History release primidone 50 mg tablet 25 mg PO HS 03/29/25 04/13/25 History prochlorperazine maleate 10 mg 10 mg PO Q6H PRN Nausea 03/29/25 04/13/25 History tablet calcium carbonate (Calcium 600) 600 mg PO DAILY 04/13/25 04/13/25 History dexamethasone 2 mg tablet 1 mg PO QAM 04/13/25 04/13/25 History ferrous sulfate 325 mg (65 mg 325 mg PO 3XWK 04/13/25 04/13/25 History iron) tablet (iron) midodrine 10 mg tablet 10 mg PO TID 04/13/25 04/13/25 History oxycodone 5 mg tablet 10 mg PO Q6 PRN PAIN,SEVERE 04/13/25 04/13/25 History vitamin E 268 mg (400 unit) capsule 268 mg PO DAILY 04/13/25 04/13/25 History cefdinir 300 mg capsule 300 mg PO BID 6 days #12 caps 04/15/25 Rx sodium di- and 1 tab PO QID 7 days #28 tabs 04/15/25 Rx monophosphate-potassium phos monobasic 250 mg tablet (Phospha Neutral) Hospital Stay Data Consultations 04/13/25 22:26 ED Decision to Admit Stat Diagnostic Imagining Performed Laboratory Results WBC 3.60 K/ul (4.8-10.8) L 04/15/25 05:44 RBC 2.45 M/uL (4.20-5.40) L 04/15/25 05:44 Hgb 8.7 g/dl (12.0-16.0) L 04/15/25 05:44 Hct 25.8 % (37.0-47.0) L 04/15/25 05:44 MCV 105.3 fL (80.0-100.0) H 04/15/25 05:44 MCH 35.5 pg (25.0-34.0) H 04/15/25 05:44 MCHC 33.7 g/dL (32.0-36.0) 04/15/25 05:44 RDW Std Deviation 53.1 fL (36.4-46.3) H 04/15/25 05:44 RDW Coeff of Carlos 13.9 % (11.5-14.5) 04/15/25 05:44 Plt Count 99 K/uL (130-400) L D 04/15/25 05:44 MPV 11.9 fL (9.4-12.4) 04/15/25 05:44 Immature Gran % (Auto) 1.9 % 04/15/25 05:44 Neut % (Auto) 76.5 % 04/15/25 05:44 Lymph % (Auto) 8.9 % 04/15/25 05:44 [place] % (Auto) 10.8 % 04/15/25 05:44 Eos % (Auto) 1.1 % 04/15/25 05:44 Baso % (Auto) 0.8 % 04/15/25 05:44 Neut # (Auto) 2.75 K/uL (1.40-6.50) 04/15/25 05:44 Lymph # (Auto) 0.32 K/uL (1.20-3.40) L 04/15/25 05:44 [place] # (Auto) 0.39 K/uL (0.11-0.59) 04/15/25 05:44 Eos # (Auto) 0.04 K/uL (0.00-0.50) 04/15/25 05:44 Baso # (Auto) 0.03 K/uL (0.00-0.20) 04/15/25 05:44 Immature Gran # (Auto) 0.07 K/uL (0.01-0.20) 04/15/25 05:44 Toxic Granulation 2+ 04/15/25 05:44 Dohle Bodies 2+ 04/15/25 05:44 Polychromasia 2+ 04/14/25 01:21 PT 11.0 Seconds (9.0-12.0) 04/13/25: INR 1.0 (0.9-1.1) 04/13/25 19:25 APTT 30 Seconds (21-31) 04/13/25: PTT Ratio 1.1 04/13/25 19:25 VBG pH 7.42 (7.36-7.41) H 04/13/25 19:47 VBG pCO2 39 mmHg (38-50) 04/13/25 19:47 VBG pO2 30 mmHg 04/13/25 19:47 VBG HCO3 25 mmol/L 04/13/25:47 VBG O2 Saturation < 60.0 % 04/13/25 19:47 VBG Base Excess 0.8 mEq/L 04/13/25 19:47 Sodium 137 mmol/L (136-145) 04/15/25 05:44 Potassium 3.5 mmol/L (3.5-5.1) D 04/15/25 05:44 Chloride 106 mmol/L (98-107) 04/15/25 05:44 Carbon Dioxide 22 mmol/L (21-32) 04/15/25 05:44 Anion Gap 9 (3-11) 04/15/25 05:44 BUN 7 mg/dl (6-23) 04/15/25 05:44 Creatinine 0.78 mg/dl (0.6-1.2) 04/15/25 05:44 Est Cr Clr Drug Dosing 70.2 ml/min 04/15/25 05:44 eGFR 86.36 04/15/25 05:44 BUN/Creatinine Ratio 9.0 (10-20) L 04/15/25 05:44 Glucose 99 mg/dl (70-99(Fasting)) 04/15/25 05:44 Estimat Average Glucose 123 mg/dl 04/14/25 01:21 Hemoglobin A1c 5.9 % (4.5-5.6) H 04/14/25 01:21 Osmolality 259 mOsm/kg (280-300) L 04/13/25 19:25 Lactate 1.4 mmol/L (0.4-2.0) 04/13/25 19:47 Calcium 8.6 mg/dl (8.6-10.3) 04/15/25 05:44 Phosphorus 1.5 mg/dl (2.5-4.9) L* 04/15/25 05:44 Magnesium 2.2 mg/dl (1.7-2.4) 04/15/25 05:44 Total Bilirubin 0.9 mg/dl (0.2-1.0) 04/14/25 07:54 Direct Bilirubin 0.2 mg/dl (0-0.2) 04/13/25 19:25 AST 18 U/L (13-39) 04/14/25 07:54 ALT 16 U/L (7-52) 04/14/25 07:54 Alkaline Phosphatase 82 U/L (34-104) 04/14/25 07:54 Troponin I High Sens 11.2 pg/ml (0-14) 04/13/25 19:25 Total Protein 6.4 gm/dl (6.0-8.3) 04/14/25 07:54 Albumin 3.4 gm/dl (3.4-5.0) 04/14/25 07:54 Globulin 3.0 gm/dl (2.5-4.0) 04/14/25 07:54 Albumin/Globulin Ratio 1.1 (0.9-2) 04/14/25 07:54 Procalcitonin 0.87 ng/ml (0-0.5) H 04/13/25 19:25 TSH 2.687 uIu/ml (0.300-4.500) 04/13/25 19:25 Urine Color Yellow 04/13/25 22:30 Urine Appearance Cloudy (Clear) A 04/13/25 22:30 Urine pH 6.0 (4.5-7.5) 04/13/25 22:30 Ur Specific Sells 1.009 (1.000-1.030) 04/13/25 22:30 Urine Protein 2+ (Negative) H 04/13/25 22:30 Urine Glucose (UA) Negative (Negative) 04/13/25 22:30 Urine Ketones Negative (Negative) 04/13/25 22:30 Urine Blood 2+ (Negative) H 04/13/25 22:30 Urine Nitrite Positive (Negative) A 04/13/25 22:30 Urine Bilirubin Negative (Negative) 04/13/25 22:30 Urine Urobilinogen Negative (Negative) 04/13/25 22:30 Ur Leukocyte Esterase 2+ (Negative) H 04/13/25 22:30 Urine WBC (Auto) >50 /hpf (0-5) H 04/13/25 22:30 Urine RBC (Auto) 3-5 /hpf (0-2) H 04/13/25 22:30 U Hyaline Cast (Auto) 6-10 /lpf (0-2) H 04/13/25 22:30 U Epithel Cells (Auto) 0-2 /hpf (0-2) 04/13/25 22:30 Urine Bacteria (Auto) 4+ (None Seen) H 04/13/25 22:30 Urine Osmolality 155 mOsm/kg (500-800) L 04/14/25 Unknown Ur Random Sodium 14 mmol/L 04/14/25 Unknown Urine Comment 04/13/25 22:30 Impressions Chest X-Ray 04/13/25 19:32 Exam(s): XR CXR 1 VIEW EXAM: XR Chest, 1 View CLINICAL HISTORY: Reason for exam: Sepsis. TECHNIQUE: Frontal view of the chest. COMPARISON: None FINDINGS: Hardware: Right-sided Port-A-Cath terminates near the cavoatrial junction. Clips projected over the left lower chest. Lungs/pleura: Hyperinflated lungs. Lung nodules bilaterally. No focal consolidation. No pleural effusion or pneumothorax. Heart/mediastinum: Normal. No cardiomegaly. Soft tissues: Unremarkable. Bones: No acute fracture. Upper abdomen: Normal. IMPRESSION: 1. Lung nodules bilaterally, concerning for osseous metastases. 2. No focal consolidation. Electronically signed by: Ary Khoury M.D. 04/13/25 20:15 PM Lumbar Spine MRI 04/13/25 19:55 Exam(s): MRI L SPINE W/WO Contrast IV Amt: 6mL Gadavist given existing IV EXAM: MR Lumbar Spine Without and With Intravenous Contrast CLINICAL HISTORY: Reason for exam: fever cancer ro cord compression/abscess. TECHNIQUE: Magnetic resonance images of the lumbar spine without and with intravenous contrast in multiple planes. CONTRAST: Patient received 6mL Gadavist given existing IV of IV contrast COMPARISON: MRI 07/31/2024 FINDINGS: Vertebrae: Extensive metastatic disease within the lumbar spine and visualized portions of the sacrum and posterior pelvis. Appearance is similar to the prior. Unchanged superior endplate height loss at L3. No acute fracture. No spondylolisthesis. Spinal cord: Unremarkable. Normal signal. No abnormal enhancement. Soft tissues: Unremarkable. DISCS/SPINAL CANAL/NEURAL FORAMINA: L1-L2: Mild diffuse disc bulge. No canal or foraminal stenosis. L2-L3: Mild diffuse disc bulge and facet arthropathy. Mild canal stenosis. No foraminal stenosis. L3-4: Trace disc bulge. Facet arthropathy. No canal stenosis. Mild foraminal stenosis on the left. None on the right. L4-5: Trace disc bulge. No spinal canal or foraminal stenosis. L5-S1: Disc height loss and facet arthropathy. No canal stenosis. Mild bilateral foraminal stenosis. IMPRESSION: Redemonstrated of extensive metastatic disease. No high-grade canal stenosis or infection. Electronically signed by: Howie Cramer MD 04/13/25 22:20 PM Thoracic Spine MRI 04/13/25 19:55 Exam(s): MRI T SPINE W/WO Contrast IV Amt: 6mL Gadavist given existing IV EXAM: MR Thoracic Spine Without and With Intravenous Contrast CLINICAL HISTORY: Reason for exam: fever cancer ro cord compression/abscess. TECHNIQUE: Magnetic resonance images of the thoracic spine without and with intravenous contrast in multiple planes. CONTRAST: Patient received 6mL Gadavist given existing IV of IV contrast COMPARISON: No relevant prior studies available. FINDINGS: Extensive metastatic disease throughout the thoracic spine. No acute fracture. No spondylolisthesis. No spinal canal or foraminal stenosis. Normal cord signal. IMPRESSION: Extensive metastatic disease. No acute abnormality or significant stenosis. Electronically signed by: Howie Cramer MD 04/13/25 22:22 PM 04/13/25 19:55 MRI Lumbar Spine [MR lumbar spine wo/w con] Stat MRI Thoracic [MR thoracic spine wo/w con] Stat Pending Results Patient Have Any Pending Studies at Discharge: No Discharge Instructions Given to Patient (Per Discharging Provider) PLEASE REFER TO YOUR NEW MEDICATION LIST AND FOLLOW INSTRUCTIONS CAREFULLY. YOUR NEW MEDICATIONS INCLUDE: Cefdinir- antibiotic for urinary tract infection [id number] supplement PLEASE CALL YOUR PRIMARY CARE PHYSICIAN OR RETURN TO THE ER IF WITH WORSENING OF SYMPTOMS, INCLUDING abdominal pain, problems with urination, fevers or chills, nausea vomiting, diarrhea, worsening Back pain, Etc. FOLLOW UP WITH PRIMARY CARE PHYSICIAN OUTLINED ABOVE. Total Time Total Time Spent Total Time Spent (In Minutes): 45 minutes
[2025-04-15 15:58] VITALS: BP 104/71; TEMP 98.4; O2SAT 95
[2025-04-15 16:44] VITALS: PULSE 88
[2025-04-15] MEDS ORDERED: POT PHOSPHATE MONOBASIC W/ SOD TAB PO SCH (17:00)
== END 2025-04-15 17:09 | disposition home or self-care (01) | DRG 871 ==
LOC: ED 19:01 → 2W 23:42

== ENCOUNTER 2025-06-02 11:50 | Inpatient (IN) ==
--- NOTE | 2025-06-02 12:16 | Emergency Department Note ---
Impression & Plan Right lower lobe pneumonia, Severe sepsis, Hypoxia, Immunocompromised state ED Provider Note Name: BENTLEY COLON Age: 59 Sex: Female Arrives Via: Walk-In Informant: Patient, ED Provider: Xavier Martinez MD Chief Complaint: Illness Impression: As per impressions above Medical Decision Makin-year-old very pleasant female arrives for evaluation of generalized illness. Patient with a history of metastatic breast cancer on chemotherapy for the last year. She arrives to the ER from [facility] following recognition that she has been hypotensive, tachycardic, febrile and hypoxic. Septic workup initiated on arrival though patient is not an extremis. She was started on a liter of fluid which did improve her blood pressure in addition to giving her her typical midodrine. Chest x-ray shows a right lower lobe infiltrate consistent with examination and her hypoxia. She was empirically given IV Zosyn. In the setting of severe sepsis and importance of managing her immunocompromise state she will need to be hospitalized. Patient is an overly thrilled with this but is agreeable. I do not feel that findings are consistent with PE but will defer further imaging to hospitalist service as needed. Severe sepsis resuscitation: 1000mL IV NSS Bolus. Did not do 30ml/kg fluid bolus given BP improvement to lesser volume. Sepsis re-evaluation: Sepsis repeat examination completed by me post initial fluid resuscitation. 13:15 on 06/02/25. Triage/Nursing Notes reviewed by Me External Chart Review by me: Oncology note from 04/29/2025 reviewed by me for past medical history and treatments Differential:Viral syndrome, otitis, pharyngitis, pneumonia, influenza, meningitis, urinary tract infection, sepsis, bacteremia, as well as other pathologies. Vital Signs: reviewed and remarkable for hypoxia, tachycardia, hypotension Interventions: nss bolus, zosyn iv, midodrine Labs:ED labs Reviewed by me and remarkable for no significant abnormalities Imaging:X ray results are stated below per my interpretation: Chest: 1 view: RLL infiltrate new from previous EKG:Per My Interpretation: Indication sepsis: Sinus tach 111 bpm, qtc 446. No Ectopy. No Ischemia. Compared to EKG 05-14-25, no significant changes. Cardiac/Tele Monitoring: Cardiac Monitoring: An Order was placed for continuous cardiac monitoring. The monitor shows a rate of 110 with a sinus tach rhythm. Consults:Discussed with hospital service who will further evaluate and manage patient. Plan: Disposition:Hospitalization. Condition: Fair History of Present Illness: 59-year-old female arrives for evaluation of illness. Patient has a history of metastatic breast cancer on chemotherapy for the last year. She has had previous hospitalizations for fevers and infections. She has a chronic cough but otherwise just feeling bit washed out over the last few days. While at [facility] today she was noted to have a low blood pressure, high heart rate and hypoxia. She is also been having fevers the last 24 hours. She denies any nausea, vomiting, syncope, shortness of breath, chest pain, leg swelling or other concerning signs or symptoms. She chronically does not drink or eat very well. Does have a history of hypotension and has been on midodrine for quite some time along with periodic IV fluid resuscitation by her . Patient was seen at [facility] who sent her to the ER for further evaluation Past Medical History:See Below Home Medications:See Below Allergies:See Below Vitals:Blood Pressure: 92/59, Pulse 108, RR 20, T 36.9C, O2 93% on RA Physical Exam: GENERAL: Patient is chronically unwell appearing and in mild distress. RESPIRATORY: No dyspnea. Clear to auscultation and equal bilaterally. CARDIOVASCULAR: Tachy.No murmur appreciated. EXTREMITIES: Normal motion all extremities, no cyanosis, no edema. NEUROLOGIC: Alert and oriented. No focal neurologic deficits appreciated SKIN: No rash, no jaundice, no diaphoresis. PSYCH: Appropriate GCS: 15 ED Course: Times/Reassessments: Multiple repeat evaluations patient is improving blood pressure and looks well breathing comfortably on nasal cannula. Xavier Martinez MD Past Med/Surg History Problem List (Updated 06/04/25 @ 11:58 by Xavier Martinez MD) Immunocompromised state (Acute) Hypoxia (Acute) Severe sepsis (Acute) Right lower lobe pneumonia (Acute) Hypoxia Postobstructive pneumonia Elevated troponin RLL pneumonia Acute hypoxic respiratory failure Severe sepsis Back pain (Acute) Acute hyponatremia (Acute) Malignant neoplasm of breast metastatic to bone (Chronic) Palliative care by specialist Advanced care planning/counseling discussion Depression due to physical illness Weakness generalized Dyspnea and respiratory abnormalities COPD with emphysema Acute respiratory failure with hypoxia Multifocal pneumonia Change in mental status (Acute) Cancer related pain Electrolyte imbalance Hypotension Anxiety with agitation Pneumonia (Acute) Sepsis (Acute) Metastatic breast cancer (Chronic) 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) Encounter for pre-operative examination Malignant neoplasm of upper-outer quadrant of left breast in female, estrogen receptor positive (Chronic 11/02/19) Medical History Limb alert care status left arm Gallstones Brain aneurysm 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 History of colonoscopy Hx of left mastectomy (05/25/20) with [place] Lymph node identification History of reconstruction of left breast (05/25/20) History of breast biopsy (11/02/19) left breast Family History Grandfather (Maternal) , great grandmother; diagnosed @ 80 yr old Breast cancer Father Family history of diabetes mellitus Mother Family history of diabetes mellitus Brother Family history of diabetes mellitus Social History Smoking Status: Current every day smoker Tobacco Type: Cigarettes Age Started Using Tobacco: 14; Age Quit Using Tobacco: 54; packs per day: 1; Cigarettes Per Day: 1/2 pack; Second Hand Exposure: Yes ( smokes); Do You Dip or Chew Tobacco: No; Tobacco Cessation Education Requested by Patient: Yes Hx Alcohol Use: Yes Alcohol type: wine Alcohol Intake Frequency: 4 or More x per/Week Alcohol Intake Frequency Comment: usually 1-3 glasses with supper Hx Substance Use: No Preferred Language: Belarusian Communication Ability: Effective Visual Impairment: No Limitations Hearing Ability: Normal Traditional Chinese Herbalist Required: No Beliefs That Will Affect Care: None marital status: Current Living Situation: Spouse current occupational status: employed current occupation: [employer] unemployment from COVID to Breast Cancer How many Children do You have: 2 Other Information That Helps Us Care for You: No Feels Safe at Home: Yes Safety Concerns: Feels Safe At This Time Childhood Exposure to Second-Hand Smoke: Yes caffeine: Yes (tea 2 cups/day) during the past year weight has: remained stable Dental Care, Regularly: No Physical Activity Frequency: Does not Exercise Physical Activity Frequency Comment: her work required a lot of activity but is off now Seatbelt Use: always Sunscreen Use: No Assistive Devices: Denture - Upper, Denture - Lower and Glasses Allergies Allergies Allergy/AdvReac Type Severity Reaction Status Date / Time No Known Allergies Allergy Verified 05/14/25 19:19 Home Meds Home Medications Medication Instructions Recorded Confirmed multivitamin 1 tab PO QAM 06/21/20 06/02/25 cholecalciferol (vitamin D3) 25 25 mcg PO QAM 11/26/22 06/02/25 mcg (1,000 unit) tablet (Vitamin D3) vitamin B complex 1 tab PO QAM 12/09/22 06/02/25 albuterol sulfate 90 mcg/actuation 2 puff inhalation Q4 PRN Shortness 02/17/24 06/02/25 aerosol inhaler Of Breath lidocaine-prilocaine 2.5 %-2.5 % 1 applic topical UD PRN Other 02/17/24 06/02/25 topical cream ondansetron HCl 8 mg tablet 8 mg PO Q8 PRN Nausea 02/17/24 06/02/25 docusate sodium 100 mg capsule 100 mg PO DAILY PRN Constipation 03/29/25 06/02/25 fluticasone propionate 50 2 spray intranasal QAM 03/29/25 06/02/25 mcg/actuation nasal spray,suspension (Allergy Relief (fluticasone)) pantoprazole 40 mg tablet,delayed 40 mg PO QAM 03/29/25 06/02/25 release primidone 50 mg tablet 25 mg PO HS 03/29/25 06/02/25 prochlorperazine maleate 10 mg 10 mg PO Q6H PRN Nausea 03/29/25 06/02/25 tablet calcium carbonate (Calcium 600) 600 mg PO DAILY 04/13/25 06/02/25 dexamethasone 2 mg tablet 1 mg PO QAM 04/13/25 06/02/25 ferrous sulfate 325 mg (65 mg 325 mg PO 3XWK 04/13/25 06/02/25 iron) tablet (iron) midodrine 10 mg tablet 10 mg PO TID 04/13/25 06/02/25 oxycodone 5 mg tablet 10 mg PO Q6H PRN PAIN,SEVERE 04/13/25 06/02/25 vitamin E 268 mg (400 unit) capsule 268 mg PO DAILY 04/13/25 06/02/25 fentanyl 12 mcg/hr transdermal 12 mcg transdermal Q72H 05/02/25 06/02/25 patch olanzapine 5 mg tablet 2.5 mg PO HS 05/02/25 06/02/25 acyclovir 400 mg tablet 400 mg PO BID 05/14/25 06/02/25 gabapentin 300 mg capsule 300 mg PO TID 05/14/25 06/02/25 magnesium oxide 500 mg PO DAILY 05/14/25 06/02/25 Previous Rx's Medication Instructions Recorded levofloxacin 750 mg tablet 750 mg PO DAILY 5 days #5 tabs 06/03/25 Results & Data (ED) Vital Signs Vital Signs - 24 hr 06/02/25 11:58 Temperature 36.9 C Temperature Source Oral Pulse Rate 108 H Pulse Rhythm Regular Respiratory Rate 20 Respiratory Effort / Characteristics Non-Labored Spontaneous Respiratory Depth Normal Blood Pressure 92/59 L Blood Pressure Mean 70 Blood Pressure Position Sitting Pulse Oximetry 93 Oxygen Delivery Method Room Air Sepsis Recent Fever Within 48 Hours Yes Sepsis New/Unexplained Change in Mental Status No Sepsis Action Taken by Nursing Physician Notified Laboratory Data 06/03/25 06:03 06/03/25 06:03 Lab Results 06/02/25 06/02/25 06/02/25 Range/Units 12:23 12:31 14:24 WBC 9.32 (4.8-10.8) K/ul RBC 3.04 L (4.20-5.40) M/uL Hgb 10.8 L (12.0-16.0) g/dl Hct 33.3 L (37.0-47.0) % MCV 109.5 H (80.0-100.0) fL MCH 35.5 H (25.0-34.0) pg MCHC 32.4 (32.0-36.0) g/dL RDW Std Deviation 70.8 H (36.4-46.3) fL RDW Coeff of Carlos 17.7 H (11.5-14.5) % Plt Count 169 (130-400) K/uL MPV 10.6 (9.4-12.4) fL Immature Gran % (Auto) 1.5 % Neut % (Auto) 88.2 % Lymph % (Auto) 4.0 % [place] % (Auto) 5.6 % Eos % (Auto) 0.2 % Baso % (Auto) 0.5 % Neut # (Auto) 8.22 H (1.40-6.50) K/uL Lymph # (Auto) 0.37 L (1.20-3.40) K/uL [place] # (Auto) 0.52 (0.11-0.59) K/uL Eos # (Auto) 0.02 (0.00-0.50) K/uL Baso # (Auto) 0.05 (0.00-0.20) K/uL Immature Gran # (Auto) 0.14 (0.01-0.20) K/uL Sodium 137 (136-145) mmol/L Potassium 3.8 (3.5-5.1) mmol/L Chloride 100 (98-107) mmol/L Carbon Dioxide 27 (21-32) mmol/L Anion Gap 10 (3-11) BUN 7 (6-23) mg/dl Creatinine 0.66 (0.6-1.2) mg/dl Est Cr Clr Drug Dosing 84.9 ml/min eGFR 99.74 BUN/Creatinine Ratio 10.6 (10-20) Glucose 127 H (70-99(Fasting)) mg/dl Lactate 1.4 (0.4-2.0) mmol/L Calcium 9.7 (8.6-10.3) mg/dl Magnesium 1.9 (1.7-2.4) mg/dl Total Bilirubin 0.7 (0.2-1.0) mg/dl Direct Bilirubin 0.2 (0-0.2) mg/dl AST 21 (13-39) U/L ALT 13 (7-52) U/L Alkaline Phosphatase 122 H (34-104) U/L Troponin I High Sens 18.7 H (0-14) pg/ml Total Protein 7.2 (6.0-8.3) gm/dl Albumin 3.7 (3.4-5.0) gm/dl Procalcitonin 0.06 (0-0.5) ng/ml Urine Color Yellow Urine Appearance Clear (Clear) Urine pH 8.0 H (4.5-7.5) Ur Specific [place] 1.007 (1.000-1.030) Urine Protein Negative (Negative) Urine Glucose (UA) Negative (Negative) Urine Ketones Negative (Negative) Urine Blood Negative (Negative) Urine Nitrite Negative (Negative) Urine Bilirubin Negative (Negative) Urine Urobilinogen Negative (Negative) Ur Leukocyte Esterase Negative (Negative) Urine Comment Adenovirus (PCR) Not Detected (NotDetected) B. pertussis DNA (PCR) Not Detected (NotDetected) B.parapertussis DNA PCR Not Detected (NotDetected) C. pneumoniae DNA (PCR) Not Detected (NotDetected) Coronavirus OC43 (PCR) Not Detected (NotDetected) Coronavirus HKU1 (PCR) Not Detected (NotDetected) Coronavirus 229E (PCR) Not Detected (NotDetected) SARS-CoV-2 (PCR) Not Detected (NotDetected) Coronavirus NL63 (PCR) Not Detected (NotDetected) Human Metapneumovir PCR Not Detected (NotDetected) Influenza Type A (PCR) Not Detected (NotDetected) Influenza Type B (PCR) Not Detected (NotDetected) M. pneumoniae (PCR) Not Detected (NotDetected) Parainfluenza 1 (PCR) Not Detected (NotDetected) Parainfluenza 2 (PCR) Not Detected (NotDetected) Parainfluenza 3 (PCR) Not Detected (NotDetected) Parainfluenza 4 (PCR) Not Detected (NotDetected) RSV (PCR) Not Detected (NotDetected) Entero/Rhino (PCR) Not Detected (NotDetected) Administered Medications Discontinued Medications Acyclovir (Acyclovir 400 Mg Tab) 400 mg PO BID IDA Stop: 07/02/25 20:59 Last Admin: 06/03/25 08:21 Dose: 400 mg Documented By: Admin: 06/02/25 21:32 Dose: 400 mg Documented By: YOANA Dexamethasone (Dexamethasone 1 Mg Tab) 1 mg PO QAM IDA Stop: 07/03/25 08:59 Last Admin: 06/03/25 08:21 Dose: 1 mg Documented By: SCOTTY Enoxaparin Sodium (Enoxaparin Inj 40 Mg/0.4 Ml Syr) 40 mg SQ Q24H [facility] Stop: 07/02/25 17:59 Last Admin: 06/02/25 19:37 Dose: 40 mg Documented By: YOANA Ferrous Sulfate (Ferrous Sulfate 325 Mg Tab) 325 mg PO MoWeFr@0900 IDA Stop: 07/03/25 08:59 Last Admin: 06/03/25 08:21 Dose: 325 mg Documented By: SCOTTY Gabapentin (Gabapentin 300 Mg Cap) 300 mg PO TID IDA Stop: 07/02/25 20:59 Last Admin: 06/03/25 08:21 Dose: 300 mg Documented By: Admin: 06/02/25 21:31 Dose: 300 mg Documented By: YOANA Sodium Chloride (Nss) 1,000 mls @ 999 mls/hr IV .Q1H1M ONE Stop: 06/02/25 13:12 Last Infusion: 06/02/25 14:23 Dose: Infused Documented By: Admin: 06/02/25 12:29 Dose: 999 mls/hr Documented By: TEMO Piperacillin Sod/Tazobactam Sod (Zosyn) 4.5 gm in 100 mls @ 200 mls/hr IV NOW ONE; Protocol Stop: 06/02/25 14:11 Last Infusion: 06/02/25 17:00 Dose: Infused Documented By: mlso Admin: 06/02/25 14:27 Dose: 200 mls/hr Documented By: SUKUMAR Sodium Chloride (Nss) 1,000 mls @ 80 mls/hr IV .[id number] [facility] Stop: 06/03/25 16:29 Last Admin: 06/03/25 05:52 Dose: 80 mls/hr Documented By: Infusion: 06/03/25 05:50 Dose: Infused Documented By: Admin: 06/02/25 16:37 Dose: 80 mls/hr Documented By: mls Piperacillin Sod/Tazobactam Sod (Zosyn) 4.5 gm in 100 mls @ 25 mls/hr IV Q8H [facility]; Protocol Stop: 06/07/25 19:59 Last Infusion: 06/03/25 10:54 Dose: Infused Documented By: Admin: 06/03/25 04:06 Dose: 25 mls/hr Documented By: Infusion: 06/02/25 23:53 Dose: Infused Documented By: Admin: 06/02/25 19:38 Dose: 25 mls/hr Documented By: YOANA Magnesium Oxide (Magnesium Oxide 400 Mg Tab) 400 mg PO DAILY [facility]; Protocol Stop: 07/03/25 08:59 Last Admin: 06/03/25 08:21 Dose: 400 mg Documented By: SCOTTY Midodrine (Midodrine Hcl 10 Mg Tab) 10 mg PO NOW STA Stop: 06/02/25 12:13 Last Admin: 06/02/25 12:29 Dose: 10 mg Documented By: TEMO Midodrine (Midodrine Hcl 10 Mg Tab) 10 mg PO TID@0800,1200,1600 [facility] Stop: 07/02/25 17:59 Last Admin: 06/03/25 11:48 Dose: 10 mg Documented By: Admin: 06/03/25 08:21 Dose: 10 mg Documented By: Admin: 06/02/25 19:38 Dose: 10 mg Documented By: YOANA Olanzapine (Olanzapine 2.5 Mg Tab) 2.5 mg PO HS [facility] Stop: 07/02/25 20:59 Last Admin: 06/02/25 21:32 Dose: 2.5 mg Documented By: YOANA Oxycodone HCl (Oxycodone Hcl Ir 5 Mg Tab (Immediate Release)) 10 mg PO Q6H PRN PRN Reason: PAIN,SEVERE Stop: 06/16/25 17:30 Last Admin: 06/03/25 08:21 Dose: 10 mg Documented By: SCOTTY Pantoprazole Sodium (Pantoprazole 40 Mg Tab) [facility] Stop: 07/03/25 08:59 Last Admin: 06/03/25 08:21 Dose: 40 mg Documented By: SOCTTY Primidone (Primidone 50 Mg Tab) 25 mg PO [facility] Stop: 07/02/25 20:59 Last Admin: 06/02/25 21:32 Dose: 25 mg Documented By: YOANA Vitamin B Complex (Vitamin B Complex Tab) 1 tab [facility] Stop: 07/03/25 08:59 Last Admin: 06/03/25 08:21 Dose: 1 tab Documented By: SCOTTY Vitamin E (Tocopheryl, Dl-Alpha 400 Units 180 Mg Cap) 180 mg PO DAILY [facility] Stop: 07/03/25 08:59 Last Admin: 06/03/25 08:21 Dose: 180 mg Documented By: SCOTTY Discharge Plan Visit Data Chief Complaint: Fever Stated Complaint: REF BY DOC, FEVER, LOW 02 AND SOME PAIN IN CHEST ED Provider: Xavier Martinez Discharge Problem: Right lower lobe pneumonia, Severe sepsis, Hypoxia, Immunocompromised state Patient Disposition: Admitted As Inpatient Condition: Fair Discharge Instructions Interventions: ED Discharge Assessment Last Done: 06/02/25 17:02 Discharge Problem: Right lower lobe pneumonia Qualifiers: Pneumonia type: due to unspecified organism Qualified Code(s): J18.9 - Pneumonia, unspecified organism
[2025-06-02] MEDS: SODIUM CHLORIDE 0.9% 1,000 ML IV ONE (12:29)
[2025-06-02] MEDS: MIDODRINE HCL 10 MG TAB PO STA (12:29)
[2025-06-02 12:49] LABS: Hematocrit (blood only) 33.3 % (37.0-47.0); Hemoglobin 10.8 g/dl (12.0-16.0); Immature Granulocytes # (auto) 0.14 K/uL (0.01-0.20); Immature Granulocytes % (auto) 1.5 %; Mean Corpuscular Hemoglobin 35.5 pg (25.0-34.0); Mean Corpuscular Volume 109.5 fL (80.0-100.0); Platelet Count 169 K/uL (130-400); RDW Standard Deviation 70.8 fL (36.4-46.3); Red Blood Count 3.04 M/uL (4.20-5.40); White Blood Count 9.32 K/ul (4.8-10.8)
[2025-06-02 13:07] LABS: Alanine Aminotransferase 13.0 U/L (7-52); Albumin Level 3.7 gm/dl (3.4-5.0); Alkaline Phosphatase 122.0 U/L (34-104); Anion Gap 10.0 (3-11); Bilirubin,Total 0.7 mg/dl (0.2-1.0); Blood Urea Nitrogen 7.0 mg/dl (6-23); Calcium 9.7 mg/dl (8.6-10.3); Carbon Dioxide 27.0 mmol/L (21-32); Chloride 100.0 mmol/L (98-107); Creatinine Clr Calc Pharmacy 84.9 ml/min; Glucose 127.0 mg/dl (70-99(Fasting)); Magnesium 1.9 mg/dl (1.7-2.4); Potassium 3.8 mmol/L (3.5-5.1); Sodium 137.0 mmol/L (136-145); Total Protein 7.2 gm/dl (6.0-8.3)
--- NOTE | 2025-06-02 13:20 | XRay Report ---
XR chest 1V portable HISTORY: 59 years-old Female Sepsis COMPARISON: Chest radiograph 05/14/2025, PET/CT 03/01/2025. TECHNIQUE: AP view of the chest FINDINGS: Cardiac silhouette is upper limits of normal in size. Surgical clips project over the left hemithorax . Unchanged positioning of the right IJ [id number] catheter. Mild ill-defined right basilar opacit ies are again noted. Emphysema with calcified pulmonary granulomata redemonstrated. Multifocal blasti c osseous metastasis redemonstrated. IMPRESSION: 1. Mild ill-defined medial right lung base opacities redemonstrated which may represent atelectasis/s carring versus a nonspecific pneumonitis. 2. Emphysema with chronic interstitial coarsening. 3. Multifocal osseous metastasis redemonstrated. ACT 112: Negative or not required by law. The above report was generated using voice recognition software. It may contain grammatical, syntax o r spelling errors. Electronically signed by: Gustavo Ferguson M.D. 06/02/2025 1:18 PM
[2025-06-02 13:45] LABS: Chlamydia pneumoniae PCR Not Detected (NotDetected); Coronavirus 229E PCR Not Detected (NotDetected); Coronavirus CoV-2 (COVID19)PCR Not Detected (NotDetected); Coronavirus HKU1 PCR Not Detected (NotDetected); Coronavirus NL63 PCR Not Detected (NotDetected); Coronavirus OC43PCR Not Detected (NotDetected); Human Metapneumovirus PCR Not Detected (NotDetected); Parainfluenza Virus 1 PCR Not Detected (NotDetected); Parainfluenza Virus 2 PCR Not Detected (NotDetected); Parainfluenza Virus 3 PCR Not Detected (NotDetected); Parainfluenza Virus 4 PCR Not Detected (NotDetected); Respiratory Syncytial VirusPCR Not Detected (NotDetected); Rhinovirus/Enterovirus PCR Not Detected (NotDetected)
--- NOTE | 2025-06-02 14:10 | History & Physical Report ---
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 Moncada of [facility] for fever and low blood pressure. Acute hypoxic respiratory failure secondary to RLL pneumonia Emphysema Patient referred to ED from Heme/Onc today with temp of 100.6 Labs grossly unremarkable - no leukocytosis, negative lactate and procalcitonin, clean UA No concern for sepsis at this time-> follow blood cultures Biofire negative CXR revealed RLL PNA as well as emphysema and multifocal osseous metastasis Received Zosyn in ED-> continue Oxygen dropped to 88-89% in ED and placed on NC-> continue to maintain sats >92% Duonebs PRN Encourage ISP Hypotension Chronic hypotension on midodrine and IVF in the home setting Initial BP 92/59 Received 1L in the ED with improvement in BP Continue NSS at 80mL/hr Continue midodrine Monitor BPs closely Vocal cord paralysis Patient notes difficulty with swallowing liquids No known aspiration Continue Zosyn as above Aspiration precautions Elevated troponin Likely in the setting of active cancer treatment Initial 18-> trend q6hr for completion Metastatic breast cancer Hypercalcemia Follows with Dr. Moncada of [facility] Left breast multifocal invasive carcinoma s/p mastectomy (2019) with residual multifocal invasive carcinoma metastatic to lymph nodes (2019, 2023) and cereb ellum (2023) Completed palliative radiation to C spine, pelvis, brain, lumbar spine in 2023 Initially on chemo from October 2023-February 2025 and switched to current treatment due to disease progression Received two rounds of Trodelvy so far and gets Zometa every 6 weeks -> last chemo on 05/19/2025 Labs without pancytopenia or hypercalcemia today Continue fentanyl patch and oxycodone for pain Continue decadron for poor appetite/weight loss *Declined palliative care referral earlier this month* DVT Prophylaxis: SQ Lovenox Code Status: DNR/DNI - As per discussion at bedside with the patient. PCP: Dean Mooney Disposition: admit to med surg Patient seen in collaboration with Dr. Schaffer. Please see addendum. I spent a total of 70 minutes coordinating, documenting and providing care for this patient excluding time spent in the performance of separately billed services or time spent by another provider/QHP. 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 Moncada of [facility] for fever and low blood pressure. Patient was seen at [facility] today for scheduled chemotherapy but had a fever and therefore was referred to the ED instead of getting treatment. She reports her temp this morning was 99.4 and at the clinic was 100.6. She has been feeling relatively well recently, has no symptoms. Denies chills, cough, congestion, chest pain, SOB, abdominal pain, N/V/D. Has history of low blood pressure for which she takes midodrine and receives IV fluids in the home through [facility]. Reports she does have difficulty with drinking liquids due to her vocal cord paralysis where she notes water gets stuck behind her larynx. No episodes of aspiration that she is aware of. No dietary restrictions. Allergies Allergy/AdvReac Type Severity Reaction Status Date / Time No Known Allergies Allergy Verified 05/14/25 19:19 Home Medications Medication Instructions Recorded Confirmed Type multivitamin 1 tab PO QAM 06/21/20 06/02/25 History cholecalciferol (vitamin D3) 25 25 mcg PO QAM 11/26/22 06/02/25 History mcg (1,000 unit) tablet (Vitamin D3) vitamin B complex 1 tab PO QAM 12/09/22 06/02/25 History albuterol sulfate 90 mcg/actuation 2 puff inhalation Q4 PRN Shortness 02/17/24 06/02/25 History aerosol inhaler Of Breath lidocaine-prilocaine 2.5 %-2.5 % 1 applic topical UD PRN Other 02/17/24 06/02/25 History topical cream ondansetron HCl 8 mg tablet 8 mg PO Q8 PRN Nausea 02/17/24 06/02/25 History docusate sodium 100 mg capsule 100 mg PO DAILY PRN Constipation 03/29/25 06/02/25 History fluticasone propionate 50 2 spray intranasal QAM 03/29/25 06/02/25 History mcg/actuation nasal spray,suspension (Allergy Relief (fluticasone)) pantoprazole 40 mg tablet,delayed 40 mg PO QAM 03/29/25 06/02/25 History release primidone 50 mg tablet 25 mg PO HS 03/29/25 06/02/25 History prochlorperazine maleate 10 mg 10 mg PO Q6H PRN Nausea 03/29/25 06/02/25 History tablet calcium carbonate (Calcium 600) 600 mg PO DAILY 04/13/25 06/02/25 History dexamethasone 2 mg tablet 1 mg PO QAM 04/13/25 06/02/25 History ferrous sulfate 325 mg (65 mg 325 mg PO 3XWK 04/13/25 06/02/25 History iron) tablet (iron) midodrine 10 mg tablet 10 mg PO TID 04/13/25 06/02/25 History oxycodone 5 mg tablet 10 mg PO Q6H PRN PAIN,SEVERE 04/13/25 06/02/25 History vitamin E 268 mg (400 unit) capsule 268 mg PO DAILY 04/13/25 06/02/25 History fentanyl 12 mcg/hr transdermal 12 mcg transdermal Q72H 05/02/25 06/02/25 History patch olanzapine 5 mg tablet 2.5 mg PO HS 05/02/25 06/02/25 History acyclovir 400 mg tablet 400 mg PO BID 05/14/25 06/02/25 History gabapentin 300 mg capsule 300 mg PO TID 05/14/25 06/02/25 History magnesium oxide 500 mg PO DAILY 05/14/25 06/02/25 History valacyclovir 1 gram tablet 1,000 mg PO TID 05/14/25 06/02/25 History (Valtrex) Past Med/Surg History Problem List (Updated 06/02/25 @ 16:44 by LESLY Taylor) Elevated troponin RLL pneumonia Acute hypoxic respiratory failure Severe sepsis Back pain (Acute) Acute hyponatremia (Acute) Malignant neoplasm of breast metastatic to bone (Chronic) Palliative care by specialist Advanced care planning/counseling discussion Depression due to physical illness Weakness generalized Dyspnea and respiratory abnormalities COPD with emphysema Acute respiratory failure with hypoxia Multifocal pneumonia Change in mental status (Acute) Cancer related pain Electrolyte imbalance Hypotension Anxiety with agitation Pneumonia (Acute) Sepsis (Acute) Metastatic breast cancer (Chronic) 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) Encounter for pre-operative examination Malignant neoplasm of upper-outer quadrant of left breast in female, estrogen receptor positive (Chronic 11/02/19) Medical History Limb alert care status left arm Gallstones Brain aneurysm left ophthalmic aneurysm s/p DSA 11/08 with [facility] neurosurgery Neuropathy HANDS AND FEET HX: benign breast biopsy (11/01/19) right breast Breast cancer metastasized to axillary lymph node HX L BREAST CA, HX SX INTERVENTION, HX CHEMO & RADIATION Surgical History History of surgery DIAGNOSTIC PROCEDURE FOR BRAIN ANNEURYSM 3 WKS AGO/[place] History of surgery ACCESS PORT AND SINCE D/C'D. History of colonoscopy Hx of left mastectomy (05/25/20) with [place] Lymph node identification History of reconstruction of left breast (05/25/20) History of breast biopsy (11/02/19) left breast Family History Grandfather (Maternal) , great grandmother; diagnosed @ 80 yr old Breast cancer Father Family history of diabetes mellitus Mother Family history of diabetes mellitus Brother Family history of diabetes mellitus Social History Smoking Status: Never smoker Tobacco Type: Cigarettes Age Started Using Tobacco: 14; Age Quit Using Tobacco: 54; packs per day: 1; Cigarettes Per Day: 1/2 pack per day; Second Hand Exposure: Yes ( smokes); Do You Dip or Chew Tobacco: No; Hx Alcohol Use: Yes Alcohol type: wine Alcohol Intake Frequency: 4 or More x per/Week Alcohol Intake Frequency Comment: usually 1-3 glasses with supper Hx Substance Use: No Preferred Language: Japanese Communication Ability: Effective Visual Impairment: No Limitations Hearing Ability: Normal Saddle And Side Wire Stitcher Required: No Beliefs That Will Affect Care: None marital status: Current Living Situation: Spouse current occupational status: employed current occupation: [place] unemployment from COVID to Breast Cancer How many Children do You have: 2 Feels Safe at Home: Yes Childhood Exposure to Second-Hand Smoke: Yes caffeine: Yes (tea 2 cups/day) during the past year weight has: remained stable Dental Care, Regularly: No Physical Activity Frequency: Does not Exercise Physical Activity Frequency Comment: her work required a lot of activity but is off now Seatbelt Use: always Sunscreen Use: No Assistive Devices: Bedside Commode and Walker Review of Systems Review of Systems: All systems reviewed & are unremarkable except as noted in HPI & below Physical Exam Physical Exam: Refer to exam by Dr. Schaffer Results & Data Results & Data Vital Signs (Past 12 Hours) Vital Signs Temp Pulse Resp BP Pulse Ox O2 Del Method 06/02/25 13:38 95 Room Air 06/02/25 13:32 98 H 06/02/25 13:00 91 H 20 116/83 99 06/02/25 12:30 96 H 18 103/75 98 06/02/25 11:58 36.9 C 108 H 20 92/59 L 93 Room Air Laboratory Results Short CBC 06/02/25 Range/Units 12:23 WBC 9.32 (4.8-10.8) K/ul Hgb 10.8 L (12.0-16.0) g/dl Hct 33.3 L (37.0-47.0) % Plt Count 169 (130-400) K/uL BMP 06/02/25 12:23 Sodium 137 Potassium 3.8 Chloride 100 Carbon Dioxide 27 BUN 7 Creatinine 0.66 Glucose 127 H Calcium 9.7 Liver Function 06/02/25 Range/Units 12:23 Total Bilirubin 0.7 (0.2-1.0) mg/dl Direct Bilirubin 0.2 (0-0.2) mg/dl AST 21 (13-39) U/L ALT 13 (7-52) U/L Alkaline Phosphatase 122 H (34-104) U/L Albumin 3.7 (3.4-5.0) gm/dl Urine 06/02/25 Range/Units 14:24 Urine Color Yellow Urine Appearance Clear (Clear) Urine pH 8.0 H (4.5-7.5) Ur Specific [place] 1.007 (1.000-1.030) Urine Protein Negative (Negative) Urine Glucose (UA) Negative (Negative) I have independently reviewed and interpreted patient's admitting labs including CBC, CMP, PTT, PT/INR, mag, troponin, lactate, procalcitonin Diagnostic Findings Chest X-Ray 06/02/25 12:14 XR chest 1V portable HISTORY: 59 years-old Female Sepsis COMPARISON: Chest radiograph 05/14/2025, PET/CT 03/01/2025. TECHNIQUE: AP view of the chest FINDINGS: Cardiac silhouette is upper limits of normal in size. Surgical clips project over the left hemithorax. Unchanged positioning of the right IJ [id number] catheter. Mild ill-defined right basilar opacities are again noted. Emphysema with calcified pulmonary granulomata redemonstrated. Multifocal blastic osseous metastasis redemonstrated. IMPRESSION: 1. Mild ill-defined medial right lung base opacities redemonstrated which may represent atelectasis/scarring versus a nonspecific pneumonitis. 2. Emphysema with chronic interstitial coarsening. 3. Multifocal osseous metastasis redemonstrated. ACT 112: Negative or not required by law. The above report was generated using voice recognition software. It may contain grammatical, syntax or spelling errors. Electronically signed by: Gustavo Ferguson M.D. 06/02/2025 1:18 PM ECG Additional Comments: I have independently reviewed and interpreted patient's admitting EKG which revealed: sinus tachycardia at a rate of 111bpm Code Status & VTE Plan Code Status DNR/DNI Supervising Physician Co-Signing Physician Notes Pt seen and examined by me, care coordinated w/MLESLY De La O, pls refer to her note above for further detail. 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 Moncada of [facility] for fever and low blood pressure. Patient was seen at [facility] today for scheduled chemotherapy but had a fever and therefore was referred to the ED instead of getting treatment. She reports her temp this morning was 99.4 and at the clinic was 100.6 F. She has been feeling relatively well recently, has no symptoms. Denies chills, cough, congestion, chest pain, SOB, abdominal pain, N/V/D. Has history of low blood pressure for which she takes midodrine and receives IV fluids in the home through [facility]. Reports she does have difficulty with drinking liquids due to her vocal cord paralysis where she notes water gets stuck behind her larynx. No episodes of aspiration that she is aware of. No dietary restrictions. Currently pt is sitting up in bed in [facility]. She is awake, alert, oriented, answers appropriately. On suppl. O2 at this time 2L, 95%, breathing comfortably, no cough. Lungs clear but decreased breath sounds, no wheezing. Heart sounds regular. Abdomen soft, nontender. No LE edema, moves extremities. Blood cultx obtained in ED. Started on zosyn in ED, will cont. for now. Pt denies any cough or sputum production, if she has any, can send for cultx as well. MD Karime
[2025-06-02] MEDS: PIPERACILLIN/TAZOBACTAM 4.5 GM/100 ML BAG IV ONE (14:27)
[2025-06-02 15:00] LABS: Appearance Urine Clear (Clear); Glucose Urine UA Negative (Negative)
[2025-06-02] MEDS: SODIUM CHLORIDE 0.9% 1,000 ML IV SCH (16:37)
[2025-06-02] MEDS ORDERED: POLYETHYLENE (MIRALAX) 17 GM PACK PO PRN (17:31)
[2025-06-02] MEDS ORDERED: DOCUSATE SODIUM 100 MG CAP PO PRN (17:31)
[2025-06-02] MEDS ORDERED: PROCHLORPERAZINE MALEATE 10 MG TAB PO PRN (17:31)
[2025-06-02] MEDS ORDERED: ALBUT/IPRATROP 3MG/0.5MG NEB 3 ML VIAL NEB PRN (17:31)
[2025-06-02] MEDS ORDERED: ACETAMINOPHEN 325 MG TAB PO PRN (17:31)
[2025-06-02] MEDS ORDERED: ONDANSETRON INJ 2 MG/ML 2 ML VIAL IV PRN (17:31)
[2025-06-02] MEDS: ENOXAPARIN INJ 40 MG/0.4 ML SYR SQ SCH (19:37)
[2025-06-02] MEDS: MIDODRINE HCL 10 MG TAB PO SCH (19:38)
[2025-06-02] MEDS: PIPERACILLIN/TAZOBACTAM 4.5 GM/100 ML BAG IV SCH (19:38)
[2025-06-02] MEDS: GABAPENTIN 300 MG CAP PO SCH (21:31)
[2025-06-02] MEDS: PRIMIDONE 50 MG TAB PO SCH (21:32)
[2025-06-02] MEDS: OLANZAPINE 2.5 MG TAB PO SCH (21:32)
[2025-06-02] MEDS: ACYCLOVIR 400 MG TAB PO SCH (21:32)
[2025-06-03] MEDS ORDERED: HEPARIN 100 UNIT/ML 5ML FLUSH FLUSH PRN (05:33)
--- NOTE | 2025-06-03 06:01 | Electrocardiogram Report ---
Test Reason : Blood Pressure : */* mmHG Vent. Rate : 111 BPM Atrial Rate : 111 BPM P-R Int : 140 ms QRS Dur : 82 ms QT Int : 328 ms P-R-T Axes : 68 81 70 degrees QTcB Int : 446 ms Sinus tachycardia Possible Left atrial enlargement Cannot rule out Anterior infarct , age undetermined Abnormal ECG When compared with ECG of 14-May-2025 17:10, Borderline criteria for Inferior infarct are no longer Present T wave inversion no longer evident in Inferior leads Confirmed by Jaylan Purcell ([id number]) on 06/03/2025 6:01:17 AM Referred By: REFERRED SELF Confirmed By: Jaylan Purcell
[2025-06-03 07:21] LABS: Hematocrit (blood only) 27.6 % (37.0-47.0); Hemoglobin 8.9 g/dl (12.0-16.0); Immature Granulocytes # (auto) 0.13 K/uL (0.01-0.20); Immature Granulocytes % (auto) 2.7 %; Mean Corpuscular Hemoglobin 36.2 pg (25.0-34.0); Mean Corpuscular Volume 112.2 fL (80.0-100.0); Platelet Count 140 K/uL (130-400); RDW Standard Deviation 71.7 fL (36.4-46.3); Red Blood Count 2.46 M/uL (4.20-5.40); White Blood Count 4.75 K/ul (4.8-10.8)
[2025-06-03 07:44] LABS: Anion Gap 6.0 (3-11); Blood Urea Nitrogen 6.0 mg/dl (6-23); Calcium 8.6 mg/dl (8.6-10.3); Carbon Dioxide 28.0 mmol/L (21-32); Chloride 107.0 mmol/L (98-107); Creatinine Clr Calc Pharmacy 76.8 ml/min; Glucose 84.0 mg/dl (70-99(Fasting)); Potassium 4.1 mmol/L (3.5-5.1); Sodium 141.0 mmol/L (136-145)
[2025-06-03 08:12] LABS: Polychromasia 2+; Tear Drop Cells 1+; Toxic Granulation 1+
[2025-06-03 08:17] VITALS: BP 96/67; PULSE 100; RESP 16; TEMP 97.9; O2SAT 96
[2025-06-03] MEDS: VITAMIN B COMPLEX TAB PO SCH (08:21)
[2025-06-03] MEDS: TOCOPHERYL, DL-ALPHA 400 UNITS 180 MG CAP PO SCH (08:21)
[2025-06-03] MEDS: MAGNESIUM OXIDE 400 MG TAB PO SCH (08:21)
[2025-06-03] MEDS: FERROUS SULFATE 325 MG TAB PO SCH (08:21)
--- NOTE | 2025-06-03 12:43 | Discharge Summary ---
Discharge Summary Date of Service June 03, 2025 Principal Dx & Hospital Course #1 = Principal Diagnosis (1) Postobstructive pneumonia: (2) Malignant neoplasm of breast metastatic to bone: (3) COPD with emphysema: (4) Hypoxia: Plan Patient 59-year-old female with known metastatic breast cancer sent in from oncology's office with fever and low blood pressure when she showed up for her chemotherapy. In the emergency room chest x-ray is concerning for possible pneumonia. Her temperature reportedly at the oncology clinic was 100.6. She had an O2 sat of 89%. Patient was admitted to the hospital. She was given antibiotics. She was quickly titrated off oxygen and remained on room air. She had no documented fevers here in the hospital. Her blood pressure fluctuated but she was not having a MAP less than 65. And she was asymptomatic. On the day of discharge she was feeling well. Had no shortness of breath. [place] that she was back to her baseline. In her own terms she said she was doing "just peachy.". Believes she can be transition to oral antibiotics to treat a postobstructive pneumonia. No evidence of sepsis. Should be discharged home on oral levofloxacin, levofloxacin has bioavailability equivalent p.o. versus IV. She will follow-up with her outpatient providers. 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 Moncada of [facility] for fever and low blood pressure. Patient was seen at [facility] today for scheduled chemotherapy but had a fever and therefore was referred to the ED instead of getting treatment. She reports her temp this morning was 99.4 and at the clinic was 100.6. She has been feeling relatively well recently, has no symptoms. Denies chills, cough, congestion, chest pain, SOB, abdominal pain, N/V/D. Has history of low blood pressure for which she takes midodrine and receives IV [facility] the [facility]. Reports she does have difficulty with drinking liquids due to her vocal cord paralysis where she notes water gets stuck behind her larynx. No episodes of aspiration that she is aware of. No dietary restrictions. Admission Exam Per Admitting Provider See H&P Discharge Exam Constitutional: Alert, nontoxic, no acute distress HEENT: Mucous membranes moist. Hair loss from chemotherapy Lungs: Decreased breath sounds, no wheezes, few rhonchi CV: S1-S2, regular Abdomen: Soft, nontender, nondistended Extremities: No significant edema Neuro: No focal deficits Psych: Cooperative, normal mood Updated Medication List Medication Instructions Recorded Confirmed Type multivitamin 1 tab PO QAM 06/21/20 06/02/25 History cholecalciferol (vitamin D3) 25 25 mcg PO QAM 11/26/22 06/02/25 History mcg (1,000 unit) tablet (Vitamin D3) vitamin B complex 1 tab PO QAM 12/09/22 06/02/25 History albuterol sulfate 90 mcg/actuation 2 puff inhalation Q4 PRN Shortness 02/17/24 06/02/25 History aerosol inhaler Of Breath lidocaine-prilocaine 2.5 %-2.5 % 1 applic topical UD PRN Other 02/17/24 06/02/25 History topical cream ondansetron HCl 8 mg tablet 8 mg PO Q8 PRN Nausea 02/17/24 06/02/25 History docusate sodium 100 mg capsule 100 mg PO DAILY PRN Constipation 03/29/25 06/02/25 History fluticasone propionate 50 2 spray intranasal QAM 03/29/25 06/02/25 History mcg/actuation nasal spray,suspension (Allergy Relief (fluticasone)) pantoprazole 40 mg tablet,delayed 40 mg PO QAM 03/29/25 06/02/25 History release primidone 50 mg tablet 25 mg PO HS 03/29/25 06/02/25 History prochlorperazine maleate 10 mg 10 mg PO Q6H PRN Nausea 03/29/25 06/02/25 History tablet calcium carbonate (Calcium 600) 600 mg PO DAILY 04/13/25 06/02/25 History dexamethasone 2 mg tablet 1 mg PO QAM 04/13/25 06/02/25 History ferrous sulfate 325 mg (65 mg 325 mg PO 3XWK 04/13/25 06/02/25 History iron) tablet (iron) midodrine 10 mg tablet 10 mg PO TID 04/13/25 06/02/25 History oxycodone 5 mg tablet 10 mg PO Q6H PRN PAIN,SEVERE 04/13/25 06/02/25 History vitamin E 268 mg (400 unit) capsule 268 mg PO DAILY 04/13/25 06/02/25 History fentanyl 12 mcg/hr transdermal 12 mcg transdermal Q72H 05/02/25 06/02/25 History patch olanzapine 5 mg tablet 2.5 mg PO HS 05/02/25 06/02/25 History acyclovir 400 mg tablet 400 mg PO BID 05/14/25 06/02/25 History gabapentin 300 mg capsule 300 mg PO TID 05/14/25 06/02/25 History magnesium oxide 500 mg PO DAILY 05/14/25 06/02/25 History levofloxacin 750 mg tablet 750 mg PO DAILY 5 days #5 tabs 06/03/25 Rx Hospital Stay Data Consultations 06/02/25 13:42 ED Decision to Admit Stat Diagnostic Imagining Performed Reviewed imaging, laboratory and diagnostic studies. Pertinent findings as below. WBCs 4.7 Hemoglobin 8.9 Platelets at 140 Electrolytes stable Creatinine 0.73 Urinalysis negative Blood cultures pending Pending Results Patient Have Any Pending Studies at Discharge: Yes Discharge Instructions Given to Patient (Per Discharging Provider) Complete course of oral antibiotics Follow-up with your outpatient providers as scheduled Total Time Total Time Spent Total Time Spent (In Minutes): 25
[2025-06-04 11:26] LABS: Anisocytosis Present; Macrocytosis Present
== END 2025-06-03 12:19 | disposition home or self-care (01) | DRG 193 ==
LOC: ED 11:50 → SUATTDRO 15:23 → 3E 15:23